=== PATIENT | female | born 1945 | race Caucasian/White ===

== ENCOUNTER 2020-04-01 08:25 | Outpatient (CLI) | payer MEDICARE, SELFPAY ==
--- NOTE | ~2020-04-01 | MM_ITS ---
EXAMINATION: MM screening [facility] BI w elias HISTORY: Screening mammogram TECHNIQUE: Craniocaudal and mediolateral oblique 3-D tomosynthesis images were obtained and synthetic 2-D images were generated. CAD analysis was submitted and interpreted. COMPARISON: 02/07/2019, 01/10/2018, 01/01/2017 bilateral digital screening mammogram examinations BREAST PARENCHYMAL COMPOSITION: The breasts are almost entirely fatty. FINDINGS: There is no evidence of suspicious mass, calcification, or architectural distortion to sugg est malignancy in either breast. There has been no suspicious interval change. IMPRESSION: 1. No mammographic evidence of malignancy. 2. Recommend routine screening mammography in one year. BI-RADS Category 1: Negative Reviewed, dictated and finalized at location A.
== END 2020-04-01 08:26 | disposition home or self-care (01) ==
PROVIDERS: PCP Internal Medicine; Visit Provider Student in an Organized Health Care Education/Training Program
DX: Z12.31 Encounter for screening mammogram for malignant neoplasm of breast (principal)
CPT/HCPCS: 77063; 77067

== ENCOUNTER 2020-05-06 09:31 | Outpatient (CLI) | payer MEDICARE, SELFPAY ==
--- NOTE | ~2020-05-06 | NM_ITS ---
EXAMINATION: NM thyroid scan w uptake DATE: 05/07/2020 13:44 INDICATION: Thyrotoxicosis, unspecified without thyrotoxic crisis. COMPARISON: Ultrasound 05/07/2020 TECHNIQUE: 0.422 mCi I-123 was administered orally. Scintigraphic images of the thyroid gland were o btained at 24 hours. Thyroid uptake was calculated by the technologist. FINDINGS: The thyroid uptake is 29% (normal 10-30%), with the right lobe measuring 28% uptake and the left 1%. There is no focal area of decreased or increased activity to suggest hypofunctioning or hyperfunction ing nodule. By ultrasound, the left thyroid lobe is small. IMPRESSION: 1. Normal 24-hour iodine uptake. 2. Small left thyroid lobe. Reviewed, dictated and finalized at location A.
== END 2020-05-06 09:32 | disposition home or self-care (01) ==
PROVIDERS: PCP Internal Medicine; Visit Provider Internal Medicine Endocrinology, Diabetes & Metabolism
DX: E05.90 Thyrotoxicosis, unspecified without thyrotoxic crisis or storm (principal)
CPT/HCPCS: 78014; A9516

== ENCOUNTER 2020-05-07 08:25 | Outpatient (CLI) | payer MEDICARE, SELFPAY ==
--- NOTE | ~2020-05-07 | US_ITS ---
EXAMINATION: US thyroid DATE: 05/07/2020 09:09 INDICATION: Thyrotoxicosis TECHNIQUE: Multiple ultrasound images of the thyroid were obtained. COMPARISON: None. FINDINGS: The right thyroid lobe measures 5.2 x 2.0 x 2.0 cm. The left thyroid lobe measures 2.4 x 1.0 x 1.1 c m. 2.0 cm isoechoic wider than tall solid hypoechoic nodule with punctate internal echogenic foci me asuring 2.0 cm in the inferior right thyroid (TI-RADS 4, moderately suspicious , FNA if >=1.5 cm, armand ual followup is >1 cm) which is decreased from 2.4 cm at the prior study. There is a second subtle 2. 0 cm nodule with similar imaging characteristics also TI RADS 4 at the mid right thyroid. No signific ant interval change in a wider than tall solid hypoechoic nodule at the right side of the thyroid ist hmus with smooth margins and without echogenic foci measuring 1.6 x 1.4 x 0.7 cm which previously paxton sured 1.3 x 1.3 x 0.8 cm. 5 x 4 mm shadowing coarse calcification at the superficial aspect of the m id right thyroid lobe without appreciable associated nodule. There is normal echotexture, echogenicit y and vascular flow throughout the thyroid gland. IMPRESSION: 1. No significant interval change in three TI RADS 4 nodules in the right thyroid lobe/right side of the thyroid isthmus, the two largest measuring 2.0 cm which would meet consensus criteria for ultraso und-guided biopsy which would be recommended. Reviewed, dictated and finalized at location A. IMPRESSION: 1. No significant interval change in three TI RADS 4 nodules in the right thyro id lobe/right side of the thyroid isthmus, the two largest measuring 2.0 cm whi ch would meet consensus criteria for ultrasound-guided biopsy which would be re commended.
== END 2020-05-07 08:26 | disposition home or self-care (01) ==
PROVIDERS: PCP Internal Medicine; Visit Provider Internal Medicine Endocrinology, Diabetes & Metabolism
DX: E05.90 Thyrotoxicosis, unspecified without thyrotoxic crisis or storm (principal)
CPT/HCPCS: 76536

== ENCOUNTER 2020-07-20 09:21 | Outpatient (CLI) | payer MEDICARE, SELFPAY ==
--- NOTE | ~2020-07-20 | US_ITS ---
EXAMINATION: US thyroid EXAM DATE: 07/20/2020 09:50 INDICATION: Thyroid nodule follow-up. TECHNIQUE: Multiple grayscale and Doppler images of the thyroid were obtained (by a technologist who performed the scan) and subsequently reviewed. Individual nodules and recommendations may be reporte d in accordance with TI-RADS system as designated by the 2017 ACR White Paper TI-RADS committee. Comp bernice is made to prior examination from 03/19/2019. FINDINGS: Mildly heterogeneous thyroid echogenicity, right there are lobe measuring 5.1 x 2.3 x 1.9 cm and the left measuring 3.6 x 1.0 x 0.9 cm. Largest 2 thyroid nodules are in the right thyroid lobe. Right thyroid lower pole thyroid nodule measures 1.6 x 1.9 x 1.8 centimeters, solid (2 points), hypo echoic (2 points), wider than tall, smooth margin, without echogenic foci, category TR4 for this nodu le. This is unchanged. The 2nd largest right thyroid nodule measures 1.5 x 0.6 x 1.3 centimeters, solid (2 points), hypoecho ic (2 points), wider than tall, smooth margin, without echogenic foci, category TR4 for this nodule. This is unchanged. IMPRESSION: Stable thyroid nodules. Largest 2 on the right do meet current criteria for considering u ltrasound-guided biopsy. Reviewed, dictated and finalized at location B. IMPRESSION: Stable thyroid nodules. Largest 2 on the right do meet current crit eria for considering ultrasound-guided biopsy.
== END 2020-07-20 09:22 | disposition home or self-care (01) ==
PROVIDERS: PCP Internal Medicine; Visit Provider Internal Medicine Endocrinology, Diabetes & Metabolism
DX: E04.2 Nontoxic multinodular goiter (principal)
CPT/HCPCS: 76536

== ENCOUNTER 2020-09-06 16:24 | Outpatient (CLI) | payer MEDICARE, SELFPAY ==
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
== END 2020-09-06 16:25 | disposition home or self-care (01) ==
PROVIDERS: PCP Internal Medicine; Visit Provider Nurse Practitioner Adult Health
DX: S09.90XA Unspecified injury of head, initial encounter (principal); Z51.81 Encounter for therapeutic drug level monitoring; Z79.01 Long term (current) use of anticoagulants
CPT/HCPCS: 70450

== ENCOUNTER 2021-04-14 15:31 | Outpatient (CLI) | payer MEDICARE, SELFPAY ==
--- NOTE | ~2021-04-14 | MM_ITS ---
EXAMINATION: MM screening [facility] BI w elias HISTORY: Screening mammogram TECHNIQUE: Craniocaudal and mediolateral oblique 3-D tomosynthesis images were obtained and synthetic 2-D images were generated. CAD analysis was submitted and interpreted. COMPARISON: 04/01/2020, 02/07/2019, 01/10/2018 BREAST PARENCHYMAL COMPOSITION: There are scattered areas of fibroglandular density. FINDINGS: There is no evidence of suspicious mass, calcification, or architectural distortion to sugg est malignancy in either breast. There has been no suspicious interval change. IMPRESSION: 1. No mammographic evidence of malignancy. 2. Recommend routine screening mammography in one year. BI-RADS Category 1: Negative Reviewed, dictated and finalized at location A.
== END 2021-04-14 15:32 | disposition home or self-care (01) ==
LOC: ANHIMG 15:36
PROVIDERS: PCP Internal Medicine; Visit Provider Student in an Organized Health Care Education/Training Program
DX: Z12.31 Encounter for screening mammogram for malignant neoplasm of breast (principal)
CPT/HCPCS: 77063; 77067

== ENCOUNTER 2021-06-29 09:46 | Outpatient (CLI) | payer MEDICARE, SELFPAY ==
--- NOTE | ~2021-06-29 | US_ITS ---
EXAMINATION: US thyroid EXAM DATE: 06/29/2021 10:23 INDICATION: E05.90 - Thyrotoxicosis, unspecified without thyrotoxic c... TECHNIQUE: Multiple grayscale and Doppler images of the thyroid were obtained (by a technologist who performed the scan) and subsequently reviewed. Individual nodules and recommendations may be reporte d in accordance with TI-RADS system as designated by the 2017 ACR White Paper TI-RADS committee. Comp arison is made to prior examination from 07/20/2020, 03/19/2019. FINDINGS: Right thyroid lobe measures 5.4 x 2.6 x 2.3 cm, the left measuring 3.1 x 0.9 x 0.6 cm. Again there is diffusely heterogeneous thyroid echogenicity with scattered thyroid nodules. Largest nodules on the right side, measuring 2.4 x 1.6 x 1.6 cm, 2.2 x 1.9 x 1.8 cm and 1.6 x 0.8 x 1 .5 cm mm, not significantly changed. These are category TR 4, the criteria for recommending biopsy. IMPRESSION: Stable multinodular goiter. Largest nodules do meet criteria for considering biopsy. Reviewed, dictated and finalized at location B. IMPRESSION: Stable multinodular goiter. Largest nodules do meet criteria fo r considering biopsy.
== END 2021-06-29 09:47 | disposition home or self-care (01) ==
LOC: ANHIMG 09:50
PROVIDERS: PCP Internal Medicine; Visit Provider Internal Medicine Endocrinology, Diabetes & Metabolism
DX: E05.90 Thyrotoxicosis, unspecified without thyrotoxic crisis or storm (principal); E04.1 Nontoxic single thyroid nodule
CPT/HCPCS: 76536

== ENCOUNTER 2021-09-26 09:59 | Emergency (ER) | payer OTHER, MEDICARE, SELFPAY ==
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
--- NOTE | ~2021-09-26 | XR_ITS ---
EXAMINATION: XR wrist LT min 3V DATE: 09/26/2021 10:54 INDICATION: Left wrist pain post fall TECHNIQUE: Posteroanterior, ulnar deviation, oblique, and lateral views of the left wrist were obtain ed. COMPARISON: none FINDINGS: Distal left radial fracture with mild dorsal impaction. The fracture appears to involve the distal ar ticular surface but with no significant fracture gap or incongruity. There is also a nondisplaced tra nsverse fracture across the tip of the ulnar styloid process. Mild osteoarthritis at the distal radio ulnar, radiocarpal triscaphe and first carpal metacarpal joints. IMPRESSION: 1. Mild dorsal impaction of a likely intra-articular fracture of the distal left radius. 2. Nondisplaced fracture of the ulnar styloid process. Reviewed, dictated and finalized at location A. NOSTICS SALES DEVELOPER IMPRESSION: 1. Mild dorsal impaction of a likely intra-articular fracture of the distal lef t radius. 2. Nondisplaced fracture of the ulnar styloid process.
[2021-09-26 10:29] VITALS: BP 149/78; PULSE 64; RESP 18; TEMP 36.8; O2SAT 97
[2021-09-26 13:43] VITALS: BP 151/73; PULSE 64; RESP 16; O2SAT 100
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
[2021-09-26] MEDS: HYDROcodone/acetaminophen (*CRX) 5-325 MG TABLET 1 TAB PO (13:44)
== END 2021-09-26 14:31 | disposition home or self-care (01) ==
PROVIDERS: Emergency Provider Emergency Medicine; PCP Internal Medicine
DX: S52.502A Unspecified fracture of the lower end of left radius, initial encounter for closed fracture (principal); S52.615A Nondisplaced fracture of left ulna styloid process, initial encounter for closed fracture; S32.010A Wedge compression fracture of first lumbar vertebra, initial encounter for closed fracture; I48.91 Unspecified atrial fibrillation; I10 Essential (primary) hypertension; E05.90 Thyrotoxicosis, unspecified without thyrotoxic crisis or storm; Z79.01 Long term (current) use of anticoagulants; M47.812 Spondylosis without myelopathy or radiculopathy, cervical region; V03.90XA Pedestrian on foot injured in collision with car, pick-up truck or van, unspecified whether traffic or nontraffic accident, initial encounter
CPT/HCPCS: 29125; 70450; 72125; 72131; 73110; 99284; A4565; A9270

== ENCOUNTER → 2022-06-22 07:36 | Outpatient (CLI) | payer MEDICARE, SELFPAY ==
--- NOTE | ~2022-06-22 | DEXA_ITS ---
Bone Density Report Name: EDY DESOUZA Age: 77 Sex: Female Ethnicity: White Date of : 1945 Indication: postmenopausal; screening for osteoporosis; height loss; prior fracture; Referring Provider: Noemí Garrido Study: Bone densitometry was performed. Exam Date: June 22, 2022 Accession number: [id number] Bone Density: Region BMD T-score Z-score Classification AP Spine (L2, L3) 1.171 1.0 3.6 Normal Femoral Neck (Left) 0.849 0.0 2.1 Normal Total Hip (Left) 0.814 -1.1 0.8 Osteopenia Femoral Neck (Right) 0.799 -0.4 1.7 Normal Total Hip (Right) 0.835 -0.9 1.0 Normal Total Hip Mean 0.825 -1.0 0.9 Normal World Health Organization criteria for BMD impression classify patients as: Normal (T-score at or above -1.0), Osteopenia (T-score between -1.0 and -2.5), or Osteoporosis (T-score at or below -2.5). 10-year Fracture Risk: FRAX not reported because: Prior hip or vertebral fracture Previous Exams: Region Exam Age BMD T-score BMD Change BMD Change Date g/cm2 vs Baseline vs Previous AP Spine(L2, L3) 06/22/2022 77 1.171 1.0 0.055 -0.036* 02/07/2019 74 1.207 1.4 0.091 0.035* 01/01/2017 71 1.172 1.0 0.056 0.035* 12/17/2014 69 1.137 0.7 0.021 0.014 11/08/2012 67 1.124 0.6 0.007 0.054* 10/19/2010 65 1.070 0.1 -0.047 0.008 10/16/2008 63 1.061 0.0 -0.055 -0.011 10/05/2006 61 1.073 0.1 -0.044 -0.044 06/24/2004 59 1.116 0.5 Total Hip(Left) 06/22/2022 77 0.814 -1.1 0.018 -0.018 02/07/2019 74 0.831 -0.9 0.035 0.021 01/01/2017 71 0.810 -1.1 0.014 0.005 12/17/2014 69 0.805 -1.1 0.009 -0.013 11/08/2012 67 0.818 -1.0 0.022 0.006 10/19/2010 65 0.812 -1.1 0.016 0.005 10/16/2008 63 0.808 -1.1 0.012 0.078* 10/05/2006 61 0.729 -1.7 -0.067 -0.067 06/24/2004 59 0.796 -1.2 Total Hip(Right) 06/22/2022 77 0.835 -0.9 -0.016 -0.002 02/07/2019 74 0.837 -0.9 -0.014 -0.035* 01/01/2017 71 0.872 -0.6 0.021 0.026 12/17/2014 69 0.846 -0.8 -0.005 -0.011 11/08/2012 67 0.857 -0.7 0.006 0.021 10/19/2010 65 0.836 -0.9 -0.015 0.018 10/16/2008 63 0.818 -1.0 -0.033 0.004 10/05/2006 61 0.814 -1.0 -0.037 -0.037
--- NOTE | ~2022-06-22 | MM_ITS ---
EXAMINATION: MM screening [facility]ones BI w elias HISTORY: Screening TECHNIQUE: Craniocaudal and mediolateral oblique 3-D tomosynthesis images were obtained and synthetic 2-D images were generated. CAD analysis was submitted and interpreted. COMPARISON: No prior mammogram is available for comparison at this institution. BREAST PARENCHYMAL COMPOSITION: There are scattered areas of fibroglandular density. FINDINGS: There is no evidence of suspicious mass, calcification, or architectural distortion to sugg est malignancy in either breast. There has been no suspicious interval change. IMPRESSION: 1. No mammographic evidence of malignancy. 2. Recommend routine screening mammography in one year. BI-RADS Category 1: Negative Reviewed, dictated and finalized at location A.
== END ==
PROVIDERS: PCP Internal Medicine; Visit Provider Student in an Organized Health Care Education/Training Program
DX: Z12.31 Encounter for screening mammogram for malignant neoplasm of breast (principal); Z78.0 Asymptomatic menopausal state; M85.852 Other specified disorders of bone density and structure, left thigh
CPT/HCPCS: 77063; 77067; 77080

== ENCOUNTER 2022-12-28 13:00 | Outpatient (CLI) | payer MEDICARE, SELFPAY ==
--- NOTE | ~2022-12-28 | US_ITS ---
EXAMINATION: US thyroid DATE: 12/28/2022 13:43 INDICATION: Thyroid nodules. TECHNIQUE: Multiple ultrasound images of the thyroid were obtained. COMPARISON: Thyroid scintigraphy 05/07/2020, ultrasound 03/19/2019, 06/29/21 FINDINGS: The right thyroid lobe measures 5.0 x 2.1 x 2.3 cm. The left thyroid lobe measures 2.8 x 0.9 x 0.7 c m. In the right thyroid lobe, there is a 2.2 cm predominantly solid, hypoechoic, wider than tall nod ule with smooth margin without echogenic foci (TI-RADS TR4), stable from 06/29/21 and increased in size from 02/27/19. In the right thyroid lobe, there is a 2.5 cm predominantly solid, isoechoic, wider than tall nodule with ill-defined margin and punctate echogenic foci (TR4), stable from 03/19/19. In the r ight thyroid lobe, there is a 2.2 cm solid, hypoechoic, wider than tall nodule with ill-defined laura n and punctate echogenic foci (TR5), stable from 03/19/19. In the thyroid isthmus, there is a 1.7 cm s olid, hypoechoic, wider than tall nodule with smooth margin without echogenic foci (TR4), stable from 03/19/19. Thyroid scintigraphy on 05/07/2020 demonstrated hyperactive nodules in the right thyroid lob e. IMPRESSION: 1. Stable multinodular goiter. Reviewed, dictated and finalized at location A. TY SHOP MANAGER
== END 2022-12-28 13:01 | disposition home or self-care (01) ==
PROVIDERS: PCP Internal Medicine; Visit Provider Internal Medicine Endocrinology, Diabetes & Metabolism
DX: E04.2 Nontoxic multinodular goiter (principal); E05.90 Thyrotoxicosis, unspecified without thyrotoxic crisis or storm; M81.0 Age-related osteoporosis without current pathological fracture
CPT/HCPCS: 76536

== ENCOUNTER 2024-04-24 14:59 | Outpatient (CLI) | payer MEDICARE, SELFPAY ==
--- NOTE | ~2024-04-24 | DEXA_ITS ---
Bone Density Report Name: EDY DESOUZA Age: 79 Sex: Female Ethnicity: White Date of : 1945 Indication: postmenopausal; screening for osteoporosis; height loss; cancer; Referring Provider: ANTONINO GUILLAUME Study: Bone densitometry was performed. Exam Date: April 24, 2024 Accession number: [id number] Bone Density: Region BMD T-score Z-score Classification AP Spine(L2, L3) 1.136 0.7 3.3 Normal Femoral Neck (Left) 0.839 -0.1 2.1 Normal Total Hip (Left) 0.831 -0.9 1.1 Normal Femoral Neck (Right) 0.838 -0.1 2.1 Normal Total Hip (Right) 0.891 -0.4 1.5 Normal Total Hip Mean 0.861 -0.7 1.3 Normal World Health Organization criteria for BMD impression classify patients as: Normal (T-score at or above -1.0), Osteopenia (T-score between -1.0 and -2.5), or Osteoporosis (T-score at or below -2.5). 10-year Fracture Risk: FRAX not reported because: All T-scores for Spine Total, Hip Total, Femoral Neck at or above -1.0 Clinical Information Provided by Patient: Has used the following medications: Calcium Has the following medical conditions: Cancer Patient maximum height was 67.5 Drinks caffeinated beverages Onset of menses at age 13 Number of children 2 Impression: The patient has normal bone mass. Discussion: BONE DENSITY IS ABOVE THE MINIMUM DESIRABLE LEVEL AT ALL SKELETAL SITES TESTED. This patient?s bone mineral density is above the minimum desirable level (T-score -1.0 or better) at all sites measured. The patient should follow a healthful lifestyle (good nutrition with adequate calcium and vitamin D, and appropriate weight-bearing exercise). Follow-Up: Consider repeating this study in 5 years or sooner if there is some new clinical indication. Reported by: JD on 04/24/2024 3:29:00 PM. Reviewed, dictated and finalized at location ARadha MICHEL
== END 2024-04-24 15:00 | disposition home or self-care (01) ==
PROVIDERS: PCP Family Medicine; Visit Provider Family Medicine
DX: M81.0 Age-related osteoporosis without current pathological fracture (principal); Z78.0 Asymptomatic menopausal state; Z13.820 Encounter for screening for osteoporosis
CPT/HCPCS: 77080

== ENCOUNTER 2024-05-27 15:55 | Outpatient (CLI) | payer MEDICARE, SELFPAY ==
--- NOTE | ~2024-05-27 | US_ITS ---
EXAMINATION: US thyroid DATE: 05/27/2024 16:40 INDICATION: Thyroid nodule. TECHNIQUE: Multiple ultrasound images of the thyroid were obtained. COMPARISON: Thyroid ultrasound 12/28/2022, 03/19/2019, 06/29/21, thyroid scintigraphy 05/07/2020 FINDINGS: The right thyroid lobe measures 5.8 x 2.1 x 2.1 cm. The left thyroid lobe measures 1.2 x 1.0 x 3.2 c m. In the right thyroid isthmus, there is a 1.6 cm solid, hypoechoic, wider than tall nodule with lo bulated margin without echogenic foci (TI-RADS TR4), stable from 03/19/19. In the right thyroid lobe, there is a 13 mm solid, hypoechoic, wider than tall nodule with ill-defined margin and punctate echog enic foci, stable from 03/19/19. In the right thyroid lobe, there is a 2.4 cm predominantly solid, hyp oechoic, wider than tall nodule with ill-defined margin and punctate echogenic foci, stable from 03/19. In the right thyroid lobe, there is a 2.1 cm solid, hypoechoic, wider than tall nodule with smoo th margin without echogenic foci, stable from 12/28/22 and increased from 1.8 cm on 06/29/21 and 1.3 cm o n 03/19/19. IMPRESSION: 1. Multinodular goiter. Consider ultrasound-guided fine-needle aspiration of the 2.1 cm nodule in sup erior right thyroid lobe. Reviewed, dictated and finalized at location A. IMPRESSION: 1. Multinodular goiter. Consider ultrasound-guided fine-needle aspiration of th e 2.1 cm nodule in superior right thyroid lobe.
== END 2024-05-27 15:56 | disposition home or self-care (01) ==
LOC: ANHIMG 15:58
PROVIDERS: PCP Family Medicine; Visit Provider Internal Medicine Endocrinology, Diabetes & Metabolism
DX: E04.2 Nontoxic multinodular goiter (principal)
CPT/HCPCS: 76536

== ENCOUNTER 2024-07-05 08:20 | Outpatient (CLI) | payer MEDICARE, SELFPAY ==
--- NOTE | ~2024-07-05 | MM_ITS ---
EXAMINATION: MM screening jones BI w elias HISTORY: Screening mammogram TECHNIQUE: Craniocaudal and mediolateral oblique 3-D tomosynthesis images were obtained and synthetic 2-D images were generated. CAD analysis was submitted and interpreted. COMPARISON: 06/22/2022, 04/14/2021 BREAST PARENCHYMAL COMPOSITION:Not Dense. There are scattered areas of fibroglandular density. FINDINGS: No suspicious mass, calcification, or architectural distortion are identified in either janessa ast to suggest malignancy. There has been no suspicious interval change. IMPRESSION: No mammographic evidence of malignancy. Recommend routine screening mammography in one year. BI-RADS Category 1: Negative Reviewed, dictated and finalized at location .
== END 2024-07-05 08:21 | disposition home or self-care (01) ==
LOC: ANHIMG 08:28
PROVIDERS: PCP Family Medicine; Visit Provider Family Medicine
DX: Z12.31 Encounter for screening mammogram for malignant neoplasm of breast (principal)
CPT/HCPCS: 77063; 77067

== ENCOUNTER 2025-03-17 14:21 | Emergency (ER) | payer MEDICARE, SELFPAY ==
--- NOTE | 2025-03-17 14:35 | ED.SKABFB ---
HPI - Skin/Abscess/Foreign Bdy General Chief complaint: Extremity Problem,Nontraumatic Stated complaint: Swollen R Leg Time Seen by Provider: 03/17/25 15:07 Source: patient and RN notes reviewed Mode of arrival: ambulatory Limitations: dementia History of Present Illness HPI narrative: 80-year-old female presents with concern for red spots on her right ache. She reports she noticed some on Sunday. She reports she had been doing some yd work. She denies pain, itchiness. She is on a blood thinner. She denies fever, general malaise, body aches. MD complaint: insect bite/sting Related Data Home Medications Medication Instructions Recorded Confirmed Last Taken Type B-complex with vitamin C 1 tablet PO DAILY 12/03/19 02/18/25 Unknown History cetirizine 5 mg-pseudoephedrine ER 1 tablet PO Q12H 12/03/19 02/18/25 Unknown History 120 mg tablet,extended release,12hr (Zyrtec-D) cholecalciferol (vitamin D3) 25 1,000 unit PO DAILY 12/03/19 02/18/25 Unknown History mcg (1,000 unit) tablet multivitamin 1 tablet PO DAILY 12/03/19 02/18/25 Unknown History rivaroxaban 20 mg tablet (Xarelto) 20 mg PO QPM 12/03/19 02/18/25 Unknown History calcium carbonate (Calcium 600) 600 mg PO BID 04/20/20 02/18/25 Unknown History metoprolol succinate 100 mg 50 mg PO DAILY 12/14/21 02/18/25 Unknown History tablet,extended release 24 hr flecainide 100 mg tablet 100 mg PO Q12H 06/20/22 02/18/25 Unknown History ascorbate calcium (vitamin C) 500 1 g PO DAILY 03/29/23 02/18/25 Unknown History mg tablet metronidazole 1 % topical cream 1 applic topical QHS 07/19/23 02/18/25 Unknown History triamcinolone acetonide 0.1 % 1 applic topical BID 07/19/23 02/18/25 Unknown History topical cream lisinopril 20 mg tablet 40 mg PO DAILY 02/12/24 02/18/25 Unknown History ciprofloxacin HCl 0.2 % ear drops 5 drp EACH EAR BID 02/18/25 02/18/25 Unknown History in a dropperette Allergies Allergy/AdvReac Type Severity Reaction Status Date / Time diltiazem Allergy Unknown rash Verified 02/18/25 13:29 hydrocodone Allergy Unknown unknown Verified 02/18/25 13:29 Penicillins Allergy Unknown Hives in Verified 02/18/25 13:29 mouth Review of Systems Review of Systems: CONSTITUTIONAL: Denies malaise, chills, sweats, or fever. EYES: Denies redness, or discharge. ENT: Denies rhinorrhea, congestion, swollen lips, swollen tongue CARDIOVASCULAR: Denies chest pain, palpitations, or edema. RESPIRATORY: Denies cough or dyspnea. GASTROINTESTINAL: Denies abdominal pain, nausea, vomiting SKIN: Reports to red spots on her right lower leg. Denies pain, itchiness, purulent drainage, vesicles, bullae, numbness, pain beyond proportion MUSCULOSKELETAL: Denies joint pain or myalgia. NEUROLOGIC: Denies headache. All systems reviewed & are unremarkable except as noted in HPI and below PMFSH Past Medical History Medical History Cataract fragments in both eyes following surgery Adenocarcinoma Carpal tunnel syndrome of left wrist 07/2022 Fracture of ulnar styloid Central stenosis of spinal canal L1 vertebral fracture Hypertension Atrial fibrillation Thyroid nodule Osteoporosis Hyperthyroidism History of vaginal delivery x 2 Surgical History Surgical History History of carpal tunnel release 01/2023 H/O cardiac radiofrequency ablation 2021 [place] teeth removed Family History Family History Mother Patient's mother is Hypertension Father Patient's father is Diabetes mellitus Other Cancer Osteoporosis Social History Social History Smoking status: Never smoker Second hand tobacco smoke exposure: No Alcohol intake: current Drinks per week: 4 Alcohol use details: wine Substance use: never Substance use type: does not use Lack of Transportation: No Lack of Food: Never True Current Housing: I Have Housing Concerned About Future Housing: No Difficulty Paying Gas/Electric Bills: No Difficulty Paying for Meds: No Currently Unemployed: No Education: Master's Degree or Higher Difficulty w/ Childcare or Family Care: No Comments At time of signature, agree with nursing past medical, surgical, social and family history. There is no relevant family history pertinent to the presenting complaint Exam Narrative: GENERAL: Well-appearing, well-nourished, and in no acute distress. HEAD: Normocephalic, atraumatic. EYES: PERRLA, conjunctivae clear ENT: Mucous membranes moist. NECK: Supple. No lymphadenopathy CHEST: Clear to auscultation. No respiratory distress. HEART: Regular rate and rhythm. SKIN: Warm, dry. 2 circular flat red areas noted to the right lower leg, 3 to the left lower leg with No surrounding Erythema, induration, tenderness, warmth with sharp margins. No vesicles, bullae, necrosis, ecchymosis, crepitus noted. NEURO: Alert and oriented x3. PSYCH: Normal mood and affect Course Course Emergency Course: Patient is aware of diagnosis, understands and agrees to treatment plan. Anticipatory guidance given. Patient agrees to follow-up as directed and is aware of reasons to seek care at the emergency department. Portions of this record may have been created with voice recognition software Level of Care: Express Care Visit Vital Signs Vital signs: Reviewed. MDM - Skin/Abscess/Foreign Bdy MDM Narrative Medical decision making narrative: I evaluated this in the express care. History is obtained from patient who is an independent historian and physical exam was performed. Available medical records were reviewed. Exam findings and relevant testing show no acute concerns or changes; patient is non-toxic appearing and is in no distress. No risk factors or findings concerning for epidural abscess, diskitis, vertebral osteomyelitis, cord compression, cauda equina, vertebral fracture or bone malignancy, AAA, or pyelonephritis. Patient instructed to consider further imaging and workup through their primary care physician as an outpatient if symptoms persist. Does not appear at this time to be erythema multiforme, bullous, SJS, TEN; no evidence at this time to suggest RMSF, NSTI, endocarditis or Lyme disease; patient looks well, nontoxic and is tolerating oral intake; no neurologic signs or symptoms; no headache, photophobia or neck pain; afebrile. Patient does not have history of of penetrating trauma, laceration, blunt trauma, recent surgery, immunosuppression, malignancy, obesity, alcoholism, corticosteroid use. Discussed the importance of follow-up, patient agrees; question, cellulitis versus necrotizing soft tissue infection versus abscess. Patient is appropriate for outpatient treatment and follow-up. Critical Care Time Critical Care Time Critical Care Time: No Discharge Plan Discharge Clinical Impression: Insect bite Patient Disposition: Home Condition: Stable Instructions: Insect Bite or Sting (ED) Additional Instructions: Please follow up with your Primary Care Doctor as needed. Rest and elevate affected area; apply moist heat 3-4 times daily for 10-15 minutes. If you experience any worsening redness, swelling, streaking (red lines), fever or chills please go to the ER Patient Language: Yemeni Prescriptions: No Action B-complex with vitamin C Tablet 1 tablet PO DAILY cetirizine-pseudoephedrine [Zyrtec-D] 5-120 mg tablet extended release 12 hr 1 tablet PO Q12H Xarelto 20 mg tablet 20 mg PO QPM Rx Instructions: must administer with evening meal multivitamin Tablet 1 tablet PO DAILY cholecalciferol (vitamin D3) 25 mcg (1,000 unit) tablet 1,000 unit PO DAILY ascorbate calcium (vitamin C) 500 mg tablet 1 g PO DAILY calcium carbonate [Calcium 600] 600 mg calcium (1,500 mg) tablet 600 mg PO BID metoprolol succinate 100 mg tablet extended release 24 hr 50 mg PO DAILY flecainide 100 mg tablet 100 mg PO Q12H Rx Instructions: BID triamcinolone acetonide 0.1 % cream 1 applic topical BID metronidazole 1 % cream 1 applic topical QHS lisinopril 20 mg tablet 40 mg PO DAILY ciprofloxacin HCl 0.2 % dropperette 5 drp EACH EAR BID methimazole 5 mg tablet 5 mg PO .COMPLEX Qty: 90 3RF Rx Instructions: 5 mg orally; 5 days a week Follow-up/Referrals: Geo Hernandez MD [Primary Care Provider] - Time of Disposition: 15:17
[2025-03-17 14:53] VITALS: BP 150/68; PULSE 57; RESP 16; TEMP 36.7; O2SAT 100
== END 2025-03-17 15:20 | disposition home or self-care (01) ==
PROVIDERS: Emergency Provider Nurse Practitioner; PCP Family Medicine
DX: S80.861A Insect bite (nonvenomous), right lower leg, initial encounter (principal); S80.862A Insect bite (nonvenomous), left lower leg, initial encounter; W57.XXXA Bitten or stung by nonvenomous insect and other nonvenomous arthropods, initial encounter; I10 Essential (primary) hypertension; I48.91 Unspecified atrial fibrillation; M81.0 Age-related osteoporosis without current pathological fracture; E05.90 Thyrotoxicosis, unspecified without thyrotoxic crisis or storm; Z85.9 Personal history of malignant neoplasm, unspecified
CPT/HCPCS: 99211; G0463

== ENCOUNTER 2025-03-25 09:14 | Outpatient (CLI) | payer MEDICARE, SELFPAY ==
--- NOTE | ~2025-03-25 | US_ITS ---
EXAMINATION: US soft tissue LE RT DATE: 03/25/2025 10:28 INDICATION: Small palpable region of painful erythema at the medial aspect of the right lower leg TECHNIQUE: Multiple grayscale and Doppler ultrasound images of the region of concern at the medial [facility] lower leg were obtained. COMPARISON: None FINDINGS: There is an approximately 2 cm diameter region of focal mild skin thickening with the hypoechoic term inus increasing from 1 mm to 2.4 mm in thickness. There is minimal amount of underlying subcutaneous edema. No other abnormal masses or fluid collections identified. IMPRESSION: 1. Region of concern demonstrates a small region of mild focal skin thickening and minimal underlying subcutaneous edema which could be seen with cellulitis. No abnormal masses or fluid collections iden tified. Reviewed, dictated and finalized at location A. IMPRESSION: 1. Region of concern demonstrates a small region of mild focal skin thickening and minimal underlying subcutaneous edema which could be seen with cellulitis. No abnormal masses or fluid collections identified.
--- NOTE | ~2025-03-25 | XR_ITS ---
XR knee RT min 4V 03/25/2025 09:38 Indication: Right knee pain Procedure: 4 views right knee Comparison: No prior studies for comparison. Findings: There is moderate osteoarthritis of the medial compartment of the knee with osteochondral d efect of the medial femoral condyle. Mild patellofemoral compartment osteoarthritis. Small joint effu elizabeth. No acute fracture or traumatic malalignment. 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 Reviewed, dictated and finalized at location A. 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
--- NOTE | ~2025-03-25 | US_ITS ---
EXAMINATION: US venous doppler LE RT DATE: 03/25/2025 10:28 INDICATION: Right lower limb pain, swelling and erythema. TECHNIQUE: Grayscale ultrasound images without and with compression and Doppler ultrasound images of the right lower extremity veins were obtained. COMPARISON: None. FINDINGS: The visualized portions of right common femoral vein, profunda (deep) femoral vein, femoral vein, pop liteal vein, peroneal trunk, posterior tibial veins, gastrocnemius vein and proximal to mid greater s aphenous vein are patent. The peroneal veins at the calf or not clearly visualized. 7.8 x 1.9 x 3.6 c m fusiform lesion at the medial aspect of the right knee and proximal lower leg. The lesion is predom inantly hypoechoic with scattered small anechoic regions and without evident internal vascular flow o r surrounding hyperemia on color Doppler. IMPRESSION: 1. No deep venous thrombosis in the right lower limb. 2. 7.8 x 3.6 x 1.9 cm fusiform hypoechoic complex cystic lesion at the medial right knee and proximal calf. Appearance most suggestive of hematoma or potentially a ganglion cyst with internal synovitis. Differential would include abscess in the appropriate clinical setting although there is no surround ing hyperemia to more specifically suggest this. Neoplasm also consistent less likely with no evident internal vascular flow to more specifically suggest this. Correlate clinically and could consider fu rther evaluation with pre and postcontrast MRI as clinically indicated. Reviewed, dictated and finalized at location A. IMPRESSION: 1. No deep venous thrombosis in the right lower limb. 2. 7.8 x 3.6 x 1.9 cm fusiform hypoechoic complex cystic lesion at the medial r ight knee and proximal calf. Appearance most suggestive of hematoma or potentia lly a ganglion cyst with internal synovitis. Differential would include abscess in the appropriate clinical setting although there is no surrounding hyperemia to more specifically suggest this. Neoplasm also consistent less likely with n o evident internal vascular flow to more specifically suggest this. Correlate c linically and could consider further evaluation with pre and postcontrast MRI a s clinically indicated.
--- OUTSIDE RECORDS SUMMARY | 2025-03-25 09:20 | XMS_ITS | Referral Summary ---
Author Organization [facility] [address] [facility] [address] Address [address] [place] [address] Care Team Providers Care Privacy Manager Name Role Phone Genevieve Sanchez MD Unavailable [phone] Geo Hernandez MD Primary Care Provider [phone] Pedro Pablo Akers MD Unavailable Cora Bell MD PhD Unavailable [phone] Romel Louie MD Unavailable [phone] Sasha MAS MD PhD, Santi Archuleta Unavailable Encounters Date Type Department Care Team Description 03/16/2025 9:00 AM CDT Telemedicine [facility] Radiation Oncology [address] [facility] [place] [address] Radha Tompkins PA Primary eccrine carcinoma of skin (Primary Dx) 01/22/2025 9:30 AM CDT Office Visit [facility] Cardiology [address] [place] [address] Cecile Stallings NP PAF (paroxysmal atrial fibrillation) (HCC) (Primary Dx); shelter current use of 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 drug; Medication monitoring encounter; Chronic anticoagulation; Essential hypertension 12/29/2024 9:00 AM TRAFFIC WAREHOUSE SUPERVISOR Clinical Support [facility] - Lab Collection [address] [facility] Floor 6 [place] [address] Poorly differentiated malignant carcinoid tumor (HCC); Carcinoma of unknown primary (HCC) 12/29/2024 9:20 AM TRAFFIC WAREHOUSE SUPERVISOR Office Visit [facility] [address] [place] [address] Floor 6 [place] [address] Romel Louie MD Poorly differentiated malignant carcinoid tumor (HCC); Carcinoma of unknown primary (HCC) 12/29/2024 8:15 AM TRAFFIC WAREHOUSE SUPERVISOR Lab [facility] Lab [facility] Floor 6 [place] [address] Poorly differentiated malignant carcinoid tumor (HCC); Carcinoma of unknown primary (HCC) 12/29/2024 6:46 AM TRAFFIC WAREHOUSE SUPERVISOR - 12/29/2024 11:59 PM TRAFFIC WAREHOUSE SUPERVISOR Hospital Encounter [facility] - PET [address] [place] [address] 8 [place] [address] Discharge Disposition: Discharge to home or self care 12/29/2024 6:45 AM TRAFFIC WAREHOUSE SUPERVISOR - 12/29/2024 11:59 PM TRAFFIC WAREHOUSE SUPERVISOR Hospital Encounter [facility] - PET [address] [place] [address] Poorly differentiated malignant carcinoid tumor (HCC); Carcinoma of unknown primary (HCC) Discharge Disposition: Discharge to home or self care from Last 3 Months Allergies Active Allergy Reactions Criticality Noted Date Comments Amlodipine-Olmesartan Swelling Medium 01/07/2024 Pedal edema taking amlodipine-olmesarta n 5/160 mg every day. Diltiazem Hives Medium 12/27/2022 Had hives on her arm after IV injection of either diltiazem or IV amiodarone in 2019. Hydrocodone-Acetaminop hen Vomiting Medium 02/01/2022 Penicillin Rash Medium 08/30/2021 Penicillins Hives,Rash,Other (See comments) Medium 02/06/2019 Mouth sores Medications multivitamin capsule Take 1 capsule by mouth daily Active ascorbic acid (VITAMIN C) 1,000 mg tablet Take 1 tablet (1,000 mg total) by mouth daily Active cholecalciferol (VITAMIN D-3) 1,000 unit capsule Take 1 capsule (1,000 Units total) by mouth daily Active CALCIUM ORAL Take 1,200 mg by mouth daily Active vitamin b complex tablet Take 1 tablet by mouth every other day Active methIMAzole (TAPAZOLE) 5 mg tablet Take 1 tablet (5 mg total) by mouth Take Sunday through Sunday 0 Active cetirizine (ZyrTEC) 10 mg tablet Take 1 tablet (10 mg total) by mouth as needed for allergies Active triamcinolone (KENALOG) 0.1 % ointment Apply topically as needed 3 Active Xarelto 20 mg tablet Take 1 tablet (20 mg total) by mouth daily 90 tablet 3 4 Active flecainide (TAMBOCOR) 100 mg tablet TAKE 1 TABLET(100 MG) BY MOUTH TWICE DAILY 180 tablet 1 5 Active metoprolol XL (TOPROL-XL) 50 mg extended release tabletIndications :PAF (paroxysmal atrial fibrillation) (HCC),Essential hypertension Take 1 tablet (50 mg total) by mouth daily 90 tablet 5 Active lisinopriL (PRINIVIL,ZESTRIL ) 40 mg tabletIndications :Essential hypertension Take 1 tablet (40 mg total) by mouth daily 90 tablet 3 5 09/25/20 25 Active ciprofloxacin-dex AMETHasone (CIPRODEX) otic suspension INSTILL 4 DROPS IN LEFT EAR TWICE DAILY X 7 DAYS 5 Active doxycycline hyclate 100 mg capsule TAKE 1 CAPSULE BY MOUTH TWICE DAILY BEFORE MEALS FOR 10 DAYS 5 Active methylPREDNISolon e (MEDROL DOSEPACK) 4 mg Dosepack FOLLOW PACKAGE DIRECTIONS 5 Active Active Problems Problem Noted Date Diagnosed Date 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 We discussed options management, and the patient will consider catheter ablation. We discussed the rationale for atrial fibrillation ablation, including the steps involved in ablation. I detailed the risks of the procedure, including vascular injury/hematoma, myocardial injury/perforation, stroke, myocardial infarction, pulmonary vein stenosis, thermal esophageal injury, phrenic nerve injury, and . I estimated a 70% chance of freedom from long-term atrial arrhythmia, and the patient understands that occasionally a second procedure is necessary. Because of the patient's persistent atrial fibrillation, I recommended that they undergo transesophageal echocardiography (to exclude the presence of left atrial thrombus) immediately prior to EP study and ablation. My office will make the appropriate arrangements if she wishes to undergo the procedure. From: October, Antonio LS, Makayla JS, Nuno H, Yuan ABILIO, Javi JE, Taylor SARY, Yulisa PT, Huma ZENG, ME, Mike KT, Tara RL, Kurtis WG, Micah PJ, Daly CM, Clementina CW. 2014 AHA/ACC/HRS guideline for the management of patients with atrial fibrillation: a report of the [place] College of Cardiology/[place] Heart Association Task Force on Practice Guidelines and the Heart Rhythm Society. J Am Janette Cardiol 2014. 6.3. AF Catheter Ablation to Maintain Sinus Rhythm: Recommendations Class I AF catheter ablation is useful for symptomatic paroxysmal AF refractory or intolerant to at least 1 class I or III 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 medication when a rhythm control strategy is desired ([phone]). (Level of Evidence: A) Chronic anticoagulation 06/11/2019 Assessment & Plan (02/14/2021 4:23 PM CDT): 12-lead ECG today does not demonstrate any changes that would prohibit continued use of flecainide. We will continue the patient on the same dose and schedule. It would be my intention to discontinue this medication 1 month post ablation. As long as the patient continues on this medication, an ECG should be performed at least every 6 months to monitor for toxicity. 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 I have therefore recommended that she remain anticoagulated for thromboprophylaxis. Borderline high blood pressure 12/10/2019 08/09/2021 Immunizations Immunization Administration Dates Next Due Influenza, Quadrivalent, Hig h Dose, Preservative Free, Intrr 08/01/2022,07/25/2021,08/04/2020 Influenza, Trivalent, High D ose, Split, Preservative Free, Intramuscular 08/11/2019,08/06/2018,08/05/2018,07/30,08/14/2016,08/04/2015 Influenza, Unspecified 08/08/2023 ZOSTER Recombinant 02/23/2022,12/20/2021 Social History Tobacco Use Types Packs/Day Years Used Date Smoking Tobacco: Never Smokeless Tobacco: Never Alcohol Use Standard Drinks/Week Comments Yes 2 (1 standard drink = 0.6 oz pur e alcohol) AUDIT-C Answer Date Recorded Q1: How often do you have a drink containing alc ohol? 2-3 times a week 11/05/2023 Q2: How many drinks containi ng alcohol do you have on a typical day when you are drinking? 1 or 2 11/05/2023 Q3: How often do you have si x or more drinks on one occasion? Never 11/05/2023 Personal Safety Answer Date Recorded Have you ever been in or are you currently in a harmful physical or emotional relationship or is someone making you feel afraid or unsafe? Denies 06/20/2023 Comments No Sex and Gender Information Value Date Recorded Sex Assigned at Not on file Legal Sex Female 8:16 PM TRAFFIC WAREHOUSE SUPERVISOR Gender Identity Female 05/14/2019 9:25 AM CDT Sexual Orientation Not on file Last Filed Vital Signs Vital Sign Reading Time Taken Comments Blood Pressure 138/80 01/22/2025 9:40 AM CDT Pulse 61 01/22/2025 9:40 AM CDT Temperature 36.8 C (98.3 F) 12/29/2024 9:27 AM TRAFFIC WAREHOUSE SUPERVISOR Respiratory Rate 18 12/29/2024 9:27 AM TRAFFIC WAREHOUSE SUPERVISOR Oxygen Saturation 98% 01/22/2025 9:40 AM CDT Inhaled Oxygen Concentration - - Weight 68 kg (150 lb) 01/22/2025 9:40 AM CDT Height 167.6 cm (5' 6) 01/22/2025 9:40 AM CDT Body Mass Index 24.21 01/22/2025 9:40 AM CDT Plan of Treatment Scheduled Procedures Name Priority Associated Diagnoses Date/Ti me ESOPHAGOGASTRODUODENOSCOPY Carcinoma of unknown primary (HCC) Medical Devices Implanted Type Area Splicer Helper Device Identifier Shelf Expiration Date Model / Serial / Lot [employer] [id number] Vascade 6/7fr Bioabsorbable Vascular System Compression Collagen - [id number] - [id number] Implanted:Qty: 1 on 03/16/2021 by Mesfin Han MD at [facility] Collagen [employer] 10/05/2022 [id number] / [id number] / [id number] [employer] [id number] System 6-12fr Mvp Venous Closure Vascade - [id number] - [id number] Implanted:Qty: 1 on 03/16/2021 by Mesfin Han MD at [facility] Collagen [employer] 01/13/2023 800-612C-1 [id number] / [id number] / [id number] [employer] [id number] System 6-12fr Mvp Venous Closure Vascade - [id number] - [id number] Implanted:Qty: 1 on 03/16/2021 by Mesfin Han MD at [facility] Collagen [employer] 01/13/2023 800-612C-1 0U / [id number] / [id number] [employer] [id number] System 6-12fr Mvp Venous Closure Vascade - [id number] - [id number] Implanted:Qty: 1 on 03/16/2021 by Mesfin Han MD at [facility] Collagen [employer] 01/13/2023 800-612C-1 0U / [id number] / [id number] Procedures Procedure Name Priority Date/Time Associated Diagnosis Comments ELECTROCARDIOGRAM REPORT Routine 01/22/2025 3:44 PM CDT PAF (paroxysmal atrial fibrillation) (HCC) EGFR Routine 12/29/2024 8:41 AM TRAFFIC WAREHOUSE SUPERVISOR 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) DIFFERENTIAL AUTO Routine 12/29/2024 8:41 AM TRAFFIC WAREHOUSE SUPERVISOR 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) CBC WITH AUTO DIFFERENTIAL Routine 12/29/2024 8:41 AM TRAFFIC WAREHOUSE SUPERVISOR 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) COMPREHENSIVE METABOLIC PANEL Routine 12/29/2024 8:41 AM TRAFFIC WAREHOUSE SUPERVISOR 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) LACTATE DEHYDROGENASE Routine 12/29/2024 8:41 AM TRAFFIC WAREHOUSE SUPERVISOR 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) PET/CT FDG SKULL TO THIGH Schedule Routine, Read Routine (OP Routine) 12/29/2024 8:37 AM TRAFFIC WAREHOUSE SUPERVISOR 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 73 m2 Comment: Interpretive Data Reference Interval Normal >/= 90 mL/min/1.73m2 Mildly decreased* 60 - 89 mL/min/1.73m2 Mildly to moderately decreased 45 - 59 mL/min/1.73m2 Moderately to severely decreased 30 - 44 mL/min/1.73m2 Severely decreased 15 - 29 mL/min/1.73m2 Kidney Failure < 15 mL/min/1.73m2 *Relative to young adult level Estimated glomerular filtration rate is determined by the 2020 CKD-EPI equation recommended by the National Kidney Foundation (A Unifying Approach to GFR Estimation: Recommendations of the NKF-ASK Task Force on Reassessing the Inclusion of Race in Diagnosing Kidney Disease, JASN 2020). The CKD-EPI equation should not be used for patients with unstable renal function and has not been validated in children and those over 70. Current interpretive data was last reviewed 2021. Blood 12/29/2024 8:41 AM TRAFFIC WAREHOUSE SUPERVISOR 12/29/2024 8:51 AM TRAFFIC WAREHOUSE SUPERVISOR us Jalen Stoll NP LAB BLOOD ORDERABLES Nuvia l Result [facility] Department [place] [address] * Differential, auto (12/29/2024 8:41 AM TRAFFIC WAREHOUSE SUPERVISOR) Neutrophil abs 2.1 1.5 - 6.5 K/cumm Comment:Testing performed by : [facility], [address] [place] [phone] Lymphocyte abs 1.4 0.8 - 3.3 K/cumm [facility] Comment:Testing performed by : [facility], [address] [place] [address] Monocyte abs 0.5 0.2 - 0.8 K/cumm [facility] Comment:Testing performed by : [facility], [address] [place] [phone] Eosinophil abs 0.0 0.0 - 0.5 K/cumm [facility] Comment:Testing performed by : [facility], [address] [place] [phone] Basophil abs 0.0 0.0 - 0.1 K/cumm [facility] Comment:Testing performed by : [facility], [address] [place] [phone] Neutrophil pct 51.4 % [facility] Comment: Interpretive Data Percent cell count reference ranges are not reported, since discordance with absolute values may lead to misinterpretation of CBC data. Current Interpretive Data was last revised on 2018. Testing performed by: [facility], [address] [place] [phone] Lymphocyte pct 34.1 % [facility] Comment: Interpretive Data Percent cell count reference ranges are not reported, since discordance with absolute values may lead to misinterpretation of CBC data. Current Interpretive Data was last revised on 2018. Testing performed by: [facility], [address] [place] [phone] Monocyte pct 12.8 % [facility] Comment: Interpretive Data Percent cell count reference ranges are not reported, since discordance with absolute values may lead to misinterpretation of CBC data. Current Interpretive Data was last revised on 2018. Testing performed by: [facility], [address] [place] [phone] Eosinophil pct 1.2 % [facility] Comment: Interpretive Data Percent cell count reference ranges are not reported, since discordance with absolute values may lead to misinterpretation of CBC data. Current Interpretive Data was last revised on 2018. Testing performed by: [facility], [address] [place] [phone] Basophil pct 0.5 % [facility] Comment: Interpretive Data Percent cell count reference ranges are not reported, since discordance with absolute values may lead to misinterpretation of CBC data. Current Interpretive Data was last revised on 2018. Testing performed by: [facility], [address] [place] [address] Blood 12/29/2024 8:41 AM TRAFFIC WAREHOUSE SUPERVISOR 12/29/2024 8:53 AM TRAFFIC WAREHOUSE SUPERVISOR Jalen Stoll STAB SETTER AND DRILLER LAB BLOOD ORDERABLES Nuvia l Result [facility] Department [place] [address] * CBC with auto differential (12/29/2024 8:41 AM TRAFFIC WAREHOUSE SUPERVISOR) WBC 4.2 3.8 - 9.9 K/cumm Comment:Testing performed by : [facility], [address] [place] [address] Hgb 12.6 11.9 - 15.5 g/dL [facility] Comment:Testing performed by : [facility], [address] [place] [address] Hct 38.2 35.6 - 45.5 % [facility] Comment:Testing performed by : [facility], [address] [place] [address] Plt 207 150 - 400 K/cumm [facility] Comment:Testing performed by : [facility], [address] [place] [address] MPV 7.8 6.8 - 10.4 fL [facility] Comment:Testing performed by : [facility], [address] [place] [address] RBC 4.19 3.90 - 5.20 M/cumm [facility] Comment:Testing performed by : [facility], [address] [place] [address] MCV 91.2 81.3 - 96.4 fL [facility] Comment:Testing performed by : [facility], [address] [place], [place] [phone] MCH 30.2 27.1 - 33.3 pg [facility] Comment:Testing performed by : [facility], [address] [place], [place] [phone] MCHC 33.1 32.3 - 35.7 g/dL [facility] Comment:Testing performed by : [facility], [address] [place], [place] [phone] RDW CV 12.8 11.1 - 14.9 % [facility] Comment:Testing performed by : [facility], [address] [place], [place] [phone] NRBC abs 0.00 0.00 - 0.01 K/cumm [facility] Comment:Testing performed by : [facility], [address] [place], [place] [phone] Blood 12/29/2024 8:41 AM TRAFFIC WAREHOUSE SUPERVISOR 12/29/2024 8:53 AM TRAFFIC WAREHOUSE SUPERVISOR Jalen Stoll NP LAB BLOOD ORDERABLES Nuvia l Result Performing Organization Address City/[facility] Co de Phone Number [facility] Department [place] [address] * Lactate dehydrogenase (LD) (12/29/2024 8:41 AM TRAFFIC WAREHOUSE SUPERVISOR) Pathologist [facility] Lactate dehydrogenase (LDH) 157 100 - 250 Units/L Blood 12/29/2024 8:41 AM TRAFFIC WAREHOUSE SUPERVISOR 12/29/2024 8:51 AM TRAFFIC WAREHOUSE SUPERVISOR Jalen Stoll STAB SETTER AND DRILLER LAB BLOOD ORDERABLES Nuvia l Result Performing Organization Address City/[facility]/ZIP Co de Phone Number [facility] [place] [address] * (ABNORMAL) Comprehensive metabolic panel (12/29/2024 8:41 AM TRAFFIC WAREHOUSE SUPERVISOR) Pathologist [facility] Sodium 138 135 - 145 mmol/L Potassium, pl 3.8 3.3 - 4.9 mmol/L [facility] Chloride 103 97 - 110 mmol/L [facility] CO2 29 22 - 32 mmol/L [facility] Anion gap 6 2 - 15 mmol/L [facility] BUN 18 6 - 25 mg/dL [facility] Creatinine 0.57(L) 0.60 - 1.10 mg/dL [facility] Glucose 87 70 - 199 mg/dL [facility] Comment: Interpretive Data Fasting glucose >/= 126 mg/dl is diagnostic for diabetes. Fasting is defined as no caloric intake for at least 8 hours. Fasting glucose between 100 mg/dl to 125 mg/dl is diagnostic of prediabetes. In a patient with classic symptoms of hyperglycemia or hyperglycemic crisis, a random glucose >/= 200 mg/dl is diagnostic for diabetes. In the absence of unequivocal hyperglycemia, results should be confirmed by repeat testing. The classification and Diagnosis of Diabetes Diabetes Care 2021; 46: S19-S40. Current interpretive data was last revised 2022. Calcium 8.6 8.5 - 10.3 mg/dL [facility] Bilirubin, total 0.3 0.1 - 1.2 mg/dL [facility] Protein, pl 6.9 6.5 - 8.5 g/dL [facility] Albumin 3.9 3.5 - 5.0 g/dL [facility] Alk phos 94 40 - 130 Units/L [facility] ALT 20 7 - 45 Units/L [facility] AST 21 10 - 45 Units/L [facility] Blood 12/29/2024 8:41 AM TRAFFIC WAREHOUSE SUPERVISOR 12/29/2024 8:51 AM TRAFFIC WAREHOUSE SUPERVISOR us Jalen Stoll NP LAB BLOOD ORDERABLES Nuvia beckman Result [facility] [place] [address] * PET/CT FDG Skull to Thigh (12/29/2024 8:37 AM TRAFFIC WAREHOUSE SUPERVISOR) Anatomical Region Laterality Modality N/A Positron Emissio n Tomography (PET) 12/29/2024 9:17 AM TRAFFIC WAREHOUSE SUPERVISOR Impressions 12/29/2024 9:49 AM TRAFFIC WAREHOUSE SUPERVISOR No FDG PET evidence of malignancy. Dictated by: Scott Kapoor M.D. The radiology attending physician has personally reviewed this study, and had reviewed and/or edited this written report and agrees with it. Electronically signed by: David Corrigan M.D. Narrative 12/29/2024 9:49 AM TRAFFIC WAREHOUSE SUPERVISOR EXAMINATION: TUMOR FDG-PET/CT IMAGING DATE OF STUDY: 12/29/2024 SCANNER: [facility] CS-Keys (SQ1). This is a high-resolution scanner, which can result in higher SUVs (and even detection of previously unrecognized small lesions) compared to older scanners. RADIOPHARMACEUTICAL: 8.13 mCi F-18 Fluorodeoxyglucose (FDG) i.v. 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 The study is requested for follow-up. Subsequent treatment strategy. TECHNIQUE: The patient's fasting blood glucose level, measured by glucometer before injection of FDG, was 99 mg/dL. After intravenous administration of FDG, noncontrast CT images were obtained for attenuation correction and for fusion with emission PET images to allow for anatomical localization of PET findings. Emission PET images were then obtained. The study was interpreted on the [employer] workstation. The mean liver SUV (reported for quality control coordinator purposes) is 2.8. The total scanned area was skull vertex to knees. Images of the body were obtained starting 53 minutes after injection of tracer. All reported SUVs are maximum SUVs, unless otherwise specified. COMPARISON: 09/01/2024 FINDINGS: No FDG avid disease is seen to suggest suspicion for recurrence or distant metastasis. Unchanged partially calcified right thyroid nodule with mild FDG uptake consistent with patient's known multinodular goiter. Additional CT findings: Dental restorations are noted. Degenerative changes of the spine. Aortic and coronary calcifications. Small fat-containing umbilical hernia. Healed right pubic ramus fracture. Healed left rib fractures. Unchanged 3mm right lung nodule below PET/CT resolution. L1 superior endplate chronic compression deformity. Procedure Note Dehdashti, Farrokh, MD - 12/29/2024 EXAMINATION: TUMOR FDG-PET/CT IMAGING DATE OF STUDY: 12/29/2024 SCANNER: [facility] CS-Keys (SQ1). This is a high-resolution scanner, which can result in higher SUVs (and even detection of previously unrecognized small lesions) compared to older scanners. RADIOPHARMACEUTICAL: 8.13 mCi F-18 Fluorodeoxyglucose (FDG) i.v. 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 The study is requested for follow-up. Subsequent treatment strategy. TECHNIQUE: The patient's fasting blood glucose level, measured by glucometer before injection of FDG, was 99 mg/dL. After intravenous administration of FDG, noncontrast CT images were obtained for attenuation correction and for fusion with emission PET images to allow for anatomical localization of PET findings. Emission PET images were then obtained. The study was interpreted on the [employer] workstation. The mean liver SUV (reported for quality control coordinator purposes) is 2.8. The total scanned area was skull vertex to knees. Images of the body were obtained starting 53 minutes after injection of tracer. All reported SUVs are maximum SUVs, unless otherwise specified. COMPARISON: 09/01/2024 FINDINGS: No FDG avid disease is seen to suggest suspicion for recurrence or distant metastasis. Unchanged partially calcified right thyroid nodule with mild FDG uptake consistent with patient's known multinodular goiter. Additional CT findings: Dental restorations are noted. Degenerative changes of the spine. Aortic and coronary calcifications. Small fat-containing umbilical hernia. Healed right pubic ramus fracture. Healed left rib fractures. Unchanged 3mm right lung nodule below PET/CT resolution. L1 superior endplate chronic compression deformity. IMPRESSION: No FDG PET evidence of malignancy. Dictated by: Scott Kapoor M.D. The radiology attending physician has personally reviewed this study, and had reviewed and/or edited this written report and agrees with it. Electronically signed by: David Corrigan M.D. Jalen R. Wischmeier STAB SETTER AND DRILLER IMG PET PROCEDURES Final Result * COLONOSCOPY (06/20/2023 12:46 PM CDT) Anatomical Region Laterality Modality Other Narrative Procedure Note Mora Ray MD PhD - 06/20/2023 12:46 PM CDT [facility] END[facility] Patient Name: Mariana Mccracken Procedure Date: 06/20/2023 12:46 PM Date of : 1945 Admit Type: Outpatient Age: 78 Gender: Female Attending MD: Mora Ray M.D. [facility] 4 Note Status: Addendum Procedure: Colonoscopy Indications: malignancy of unknown origin Referring MD: Cora Bell MD, PHD Providers: Mora Ray M.D. Medicines: Monitored Anesthesia Care Complications: No immediate complications. Estimated Blood Loss: Estimated blood loss was minimal. Procedure: Pre-Anesthesia Assessment: - Immediately prior to administration ofmedications, the patient was re-assessed for adequacy to receive sedatives. - The risks and benefits of the procedure and the sedation options and risks were discussed with the patient. All questions were answered and informed consent was obtained. The benefits, risks and alternatives of theprocedure and sedation were discussed and informed consentwas obtained. All questions were answered. Please referto the signed informed consent document in the medical record. The scope was passed under direct vision.The CF [id number] endoscope was introduced through the anus and advanced to the cecum, identified by appendiceal orifice and ileocecal valve. The colonoscopy was performed without difficulty. The patient tolerated the procedure well. The qualityof the bowel preparation was evaluated using the BBPS ([place] Bowel Preparation Scale) with scores of:Right Colon = 1 (portion of mucosa seen, but other areasnot well seen due to staining, residual stool and/or opaque liquid), Transverse Colon = 2 (minor amountof residual staining, small fragments of stool and/or opaque liquid, but mucosa seen well) and Left Colon= 2 (minor amount of residual staining, smallfragments of stool and/or opaque liquid, but mucosa seenwell). The total BBPS score equals 5. The quality of the bowel preparation was fair. The bowel preparationused was GoLYTELY via split dose instruction. Thequality of the bowel preparation was fair. Findings: A 3 mm polyp was found in the sigmoid colon. The polyp was sessile.The polyp was removed with a jumbo cold forceps. Resection and retrieval were complete. Estimated blood loss was minimal. Internal hemorrhoids were found during retroflexion. Impression: - Preparation of the colon was fair. - One 3 mm polyp in the sigmoid colon, removed witha jumbo cold forceps. Resected and retrieved. - Internal hemorrhoids. - No large polyp or mass found in the colon,although the preparation was not sufficient for screening purpose. Recommendation: - Await pathology results. Attending Participation: I personally performed the entire procedure. Electronically signed by Mora Ray MD Mora Ray M.D. 06/20/2023 1:29:49 PM . Number of Addenda: 1 Note Initiated On: 06/20/2023 12:46 PM Recognized by the [place] [employer] for promoting quality in endoscopy Addendum Number: 1 Addendum Date: 06/20/2023 1:47:59 PM Restart rivaroxaban tomorrow. Electronically signed by Mora Ray MD Mora Ray M.D. 06/20/2023 1:48:52 PM . us Mora Ray MD PhD ENDOSCOPY PROCEDURES Edited Res ult - Final * Screening Mammogram Bilateral W Robbie (06/18/2023 11:45 AM CDT) Anatomical Region Laterality Modality Breast Bilateral Mammography 06/27/2023 2:44 PM CDT Impressions 06/27/2023 2:44 PM CDT No evidence of malignancy in either breast. FINAL ASSESSMENT: BI-RADS Category 1: Negative. RECOMMENDATION: Recommend return for annual screening mammogram in 12 months. Electronically signed by: Dana Walker M.D. Narrative 06/27/2023 2:44 PM CDT EXAMINATION: BILATERAL SCREENING MAMMOGRAM COMPARISON: Multiple prior studies, most recently 06/22/2022 and dating back to 04/01/2020. TECHNIQUE: Full-field 2D and digital breast tomosynthesis (DBT) images were obtained. CAD was utilized. BREAST PARENCHYMAL COMPOSITION: There are scattered areas of fibroglandular density. FINDINGS: There is no suspicious mass, calcification, or distortion in either breast. There has been no significant interval change from the prior study. us Cora Bell MD PhD IMG MAMMO PROCEDURES Final Result from Last 3 Months or Most Recently Relevant to Health Maintenance Insurance [employer] MEDICARE COUNTS INCLUDE 234 BEDS AT THE [facility] MEDICARE COUNTS INCLUDE 234 BEDS AT THE [facility] MEDICARE Care Teams Privacy Manager Relationship Specialty Start Date End Date Geo Hernandez MD [address] [place] [address] PCP - General Family Practice 7/6/23 Genevieve Sanchez MD [address] [place] [address] Consulting Physician Endocrinology 07/12/20 Pedro Pablo Akers MD [address] [place] [address] Referring Physician Dermatology 05/03/23 Cora Bell MD PhD [address] [facility] [address] [place] [address] Medical Oncologist/Polisher Sand Medical Oncology 05/07/23 Romel Louie MD [address] [facility] [address] [place] [address] Medical Oncologist/Polisher Sand Medical Oncology 08/15/23 Santi Baez III, MD PhD [address] [facility] [address] [place], [place] [id number] Radiation Oncologist Radiation Oncology 01/08/24
--- OUTSIDE RECORDS SUMMARY | 2025-03-25 09:20 | XMS_ITS ---
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 Multiple thyroid nodules 06/11/2019 Current Treatment and Therapy Plans No current plan information found. Past Treatment and Therapy Plans No past plan information found. 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 I have therefore recommended that she remain anticoagulated for thromboprophylaxis. Borderline high blood pressure 12/10/2019 08/09/2021
--- OUTSIDE RECORDS SUMMARY | 2025-03-25 09:20 | XMS_ITS | Clinical Summary ---
Author Organization [facility] [employer] Address [address] [place] [address] Care Team Providers Care Exhibit Artist Name Role Phone Boston Aldrich MD Primary Care Provider [phone] Source Comments [facility] [employer],non-owned Affiliates and Associated Physician Practices is amultiple site organization consisting of ambulatory clinics and hospital sitesin [place], [place], [place] and [place]. This disclosure is being madepursuant to the Care Everywhere program and may not contain all information available regarding this patient. Last updated 18.[facility] [employer] Allergies Active Allergy Reactions Criticality Noted Date Comments Penicillins Rash Medium 02/06/2019 Mouth sores Medications * Be aware that medications may not be up to date on this document. Alwaysverify current medications with the patient. Metoprolol Succinate (TOPROL XL PO) Active DOXYCYCLINE HYCLATE PO Active Family History Medical History Relation Name Comments Cancer - Lung Father Cancer - Other Mother brain Relation Name Status Comments Father Mother Social History Tobacco Use Types Packs/Day Years Used Date Smoking Tobacco: Never Smokeless Tobacco: Never Comments No Sex and Gender Information Value Date Recorded Sex Assigned at Not on file Legal Sex Female 8:59 AM CDT Gender Identity Not on file Sexual Orientation Not on file Last Filed Vital Signs Vital Sign Reading Time Taken Comments Blood Pressure 130/88 02/06/2019 9:14 AM CDT Pulse 85 02/06/2019 9:14 AM CDT Temperature 37.1 C (98.8 F) 02/06/2019 9:14 AM CDT Respiratory Rate 16 02/06/2019 9:14 AM CDT Oxygen Saturation 98% 02/06/2019 9:14 AM CDT Inhaled Oxygen Concentration - - Weight 68 kg (150 lb) 02/06/2019 9:14 AM CDT Height 170.2 cm (5' 7) 02/06/2019 9:14 AM CDT Body Mass Index 23.49 02/06/2019 9:14 AM CDT Plan of Treatment Health Maintenance Due Date Last Done Comments BONE DENSITY TESTING 1945 DTAP/TDAP/TD VACCINES (1 - Tdap) 1965 PNEUMOCOCCAL VACCINE 50+ (1 of 1 - PCV) 01/06/1996 ZOSTER VACCINE (1 of 2) 01/06/1996 Respiratory Syncytial Virus (RSV) Vaccine Pt: or over 60 yrs (1 - 1-dose 75+ series) 2021 COVID-19 VACCINE ( - 2023-2 5 season) 2024 DEPRESSION SCREENING 10/29/2024 INFLUENZA VACCINE (Season Ended) 2025 HEPATITIS B VACCINE Aged Out No longe r eligible based on patient's age to complete this topic HIB VACCINE Aged Out No longer eligi ble based on patient's age to complete this topic HPV VACCINE Aged Out No longer eligi ble based on patient's age to complete this topic MENINGOCOCCAL (Group B) VACC INE SHARED DECISION-MAKING Aged Out No longer eligibl e based on patient's age to complete this topic MENINGOCOCCAL GROUPS A/C/Y/W VACCINE Aged Out No longer eligible b ased on patient's age to complete this topic Insurance [facility] MANAGED MEDICARE ADV Care Teams Exhibit Artist Relationship Specialty Start Date End Date Boston Aldrich MD [address] [place] [address] PCP - General Family Medicine 02/06/19
--- OUTSIDE RECORDS SUMMARY | 2025-03-25 09:20 | XMS_ITS | Encounter Summary ---
Author Organization [facility] Address [address] [place] [address] Phone Care Team Providers Care Web Feeder Name Role Phone Genevieve Sanchez MD Unavailable [phone] Chi Valdivia DO Primary Care Provider [phone] Kristen You MD Primary Care Provider [phone] Geo Hernandez MD Primary Care Provider [phone] Pedro Pablo Akers MD Unavailable Cora Bell MD PhD Unavailable [phone] Benoit Blanton MD Unavailable Romel Louie MD Unavailable [phone] Sasha MAS MD PhD, Santi Archuleta Unavailable Encounter Details Date Type Department Care Team (Latest Contact Info) Description 06/22/2022 Orders Only [facility] Scanning, Provider Social History Tobacco Use Types Packs/Day Years Used Date Smoking Tobacco: Never Smokeless Tobacco: Never Alcohol Use Standard Drinks/Week Comments Yes 2 (1 standard drink = 0.6 oz pur e alcohol) AUDIT-C Answer Date Recorded Q1: How often do you have a drink containing alc ohol? 2-3 times a week 03/16/2021 Q2: How many drinks containi ng alcohol do you have on a typical day when you are drinking? 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 Gender Identity Female 05/14/2019 9:25 AM CDT Sexual Orientation Not on file documented as of this encounter Plan of Treatment Scheduled Procedures Name Priority Associated Diagnoses Date/Ti me ESOPHAGOGASTRODUODENOSCOPY Carcinoma of unknown primary (HCC) documented as of this encounter Procedures Procedure Name Priority Date/Time Associated Diagnosis Comments SCAN - RADIOLOGY/IMAGING 06/22/2022 documented in this encounter Results * SCAN - RADIOLOGY/IMAGING (06/22/2022) Anatomical Region Laterality Modality Other us Provider Scanning Final Result documented in this encounter Visit Diagnoses Not on filedocumented in this encounter Care Teams Web Feeder Relationship Specialty Start Date End Date Chi Valdivia DO [address] [place] [address] PCP - General Internal Medicine 06/15/22 12/26/22 Kristen You MD [address] [place] [address] PCP - General Internal Medicine 12/27/22 05/02/23 Geo Hernandez MD [address] [place] [address] PCP - General Family Practice 05/03/23 Genevieve Sanchez MD [address] [place] [address] Consulting Physician Endocrinology 07/12/20 Pedro Pablo Akers MD [address] [facility] [address] [address] Referring Physician Dermatology 05/03/23 Cora Bell MD PhD [address] [facility] [address] [place] [address] Medical Oncologist/Charter Coach Driver Medical Oncology 05/07/23 Benoit Blanton MD [address] [place] [address] Consulting Physician Medical Oncology 08/15/23 08/31/24 Romel Louie MD [address] [place] [address] Medical Oncologist/Charter Coach Driver Medical Oncology 08/15/23 Santi Baez III, MD PhD [address] [place] [address] Radiation Oncologist Radiation Oncology 01/08/24 documented as of this encounter
--- OUTSIDE RECORDS SUMMARY | 2025-03-25 09:20 | XMS_ITS | Encounter Summary ---
Author Organization [facility] Address [address] [place] [address] Phone Care Team Providers Care Engine Lathe Tender Name Role Phone Genevieve Sanchez MD Unavailable [phone] Geo Hernandez MD Primary Care Provider [phone] Pedro Pablo Akers MD Unavailable Cora Bell MD PhD Unavailable [phone] Benoit Blanton MD Unavailable Romel Louie MD Unavailable [phone] Sasha MAS MD PhD, Santi Archuleta Unavailable Encounter Details Date Type Department Care Team (Latest Contact Info) Description 08/27/2023 Orders Only [facility] Scanning, Provider [...] of Binge Drinking Not on file 02/26 Personal Safety Answer Date Recorded Have you ever been in or are you currently in a harmful physical or emotional relationship or is someone making you feel afraid or unsafe? 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 Gender Identity Female 05/14/2019 9:25 AM CDT Sexual Orientation Not on file documented as of this encounter Plan of Treatment Scheduled Procedures Name Priority Associated Diagnoses Date/Ti me ESOPHAGOGASTRODUODENOSCOPY Carcinoma of unknown primary (HCC) documented as of this encounter Procedures Procedure Name Priority Date/Time Associated Diagnosis Comments SCAN - PATHOLOGY 08/27/2023 documented in this encounter Results * SCAN - PATHOLOGY (08/27/2023) us Provider Scanning Final Result documented in this encounter Visit Diagnoses Not on filedocumented in this encounter Care Teams Engine Lathe Tender Relationship Specialty Start Date End Date Geo Hernandez MD [address] [place], [place] [id number] PCP - General Family Practice 05/03/23 Genevieve Sanchez MD [address] [place] [address] Consulting Physician Endocrinology 07/12/20 Pedro Pablo Akers MD [address] [place] [address] Referring Physician Dermatology 05/03/23 Cora Bell MD PhD [address] [facility] [address] [place] [address] Medical Oncologist/Peanut Picker Medical Oncology 05/07/23 Benoit Blanton MD [address] [place] [address] Consulting Physician Medical Oncology 08/15/23 08/31/24 Romel Louie MD [address] [place] [address] Medical Oncologist/Peanut Picker Medical Oncology 08/15/23 Santi Baez III, MD PhD [address] [place] [address] Radiation Oncologist Radiation Oncology 01/08/24 documented as of this encounter
--- OUTSIDE RECORDS SUMMARY | 2025-03-25 09:20 | XMS_ITS | Encounter Summary ---
Author Organization [facility] Address [address] [place] [address] Phone Care Team Providers Care Heel Nail Rasper Name Role Phone Genevieve Sanchez MD Unavailable [phone] Geo Hernandez MD Primary Care Provider [phone] Pedro Pablo Akers MD Unavailable Cora Bell MD PhD Unavailable [phone] Fa'Benoit beltran MD Unavailable Romel Louie MD Unavailable [phone] Sasha MAS MD PhD, Santi Archuleta Unavailable Encounter Details Date Type Department Care Team (Late st Contact Info) Description 09/14/2023 Orders Only [facility] Oncology [address] [facility] 7th [place] [address] [place] [address] Romel Louie MD [address] [facility] [address] [place] [address] Social History Tobacco Use Types Packs/Day Years [...] on file 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 Gender Identity Female 05/14/2019 9:25 AM CDT Sexual Orientation Not on file documented as of this encounter Plan of Treatment Scheduled Procedures Name Priority Associated Diagnoses Date/Ti me ESOPHAGOGASTRODUODENOSCOPY Carcinoma of unknown primary (HCC) documented as of this encounter Visit Diagnoses Not on filedocumented in this encounter Care Teams Heel Nail Rasper Relationship Specialty Start Date End Date Geo Hernandez MD [address] [place], [place] [id number] PCP - General Family Practice 05/03/23 Genevieve Sanchez MD [address] [place] [address] Consulting Physician Endocrinology 07/12/20 Pedro Pablo Akers MD [address] [place] [address] Referring Physician Dermatology 05/03/23 Cora Bell MD PhD [address] [facility] [address] [place] [address] Medical Oncologist/Supervisor Nut Processing Medical Oncology 05/07/23 Benoit Blanton MD [address] [place] [address] Consulting Physician Medical Oncology 08/15/23 08/31/24 Romel Louie MD [address] [place] [address] Medical Oncologist/Supervisor Nut Processing Medical Oncology 08/15/23 Santi Baez III, MD PhD [address] [place] [address] Radiation Oncologist Radiation Oncology 01/08/24 documented as of this encounter
--- OUTSIDE RECORDS SUMMARY | 2025-03-25 09:20 | XMS_ITS | Clinical Summary ---
Author Organization [facility] [address] Address [address] [place] [address] Care Team Providers Care Supervisor Sulfuric Acid Plant Name Role Phone Genevieve Sanchez MD Unavailable [phone] Geo Hernandez MD Primary Care Provider [phone] Pedro Pablo Akers MD Unavailable Cora Bell MD PhD Unavailable Romel Louie MD Unavailable [phone] Sasha MAS MD PhD, Santi Archuleta Unavailable Allergies Active Allergy Reactions Criticality Noted Date [...] PhD on 12/06/2023 Medication monitoring encounter 02/14/2022 [facility] current use of 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 drug Syncope and [...] with atrial fibrillation: a report of the [place] [employer]/[place] [employer] Task Force on Practice Guidelines [...] 4:30 PM CDT): The patient has a [id number] score of 3 (annualized risk of stroke 3%). I have therefore recommended that she remain anticoagulated for thromboprophylaxis. 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; Medication monitoring encounter; Chronic anticoagulation; Essential hypertension 12/29/2024 9:20 AM NURSE MIDWIFE Office Visit [facility] Oncology [address] [place] [phone] Romel Louie MD Poorly differentiated malignant carcinoid tumor (HCC); Carcinoma of unknown primary (HCC) 12/29/2024 9:00 AM NURSE MIDWIFE Clinical Support [facility] - Lab Collection [address] [place] [address] [address] [place] [address] Poorly differentiated malignant carcinoid tumor (HCC); Carcinoma of unknown primary (HCC) 12/29/2024 8:15 AM NURSE MIDWIFE Lab [facility] Oncology Lab [address] [place] [phone] Poorly differentiated malignant carcinoid tumor (HCC); Carcinoma of unknown primary (HCC) 12/29/2024 6:46 AM NURSE MIDWIFE - 12/29/2024 11:59 PM NURSE MIDWIFE Hospital Encounter [facility] - [facility] [address] [facility] [address] [place] [address] Discharge Disposition: Discharge to home or self care 12/29/2024 6:45 AM NURSE MIDWIFE - 12/29/2024 11:59 PM NURSE MIDWIFE Hospital Encounter [facility] - PET [address] [facility] [facility] [address] [facility] [place] [address] Poorly differentiated malignant carcinoid tumor (HCC); Carcinoma of unknown primary (HCC) Discharge Disposition: Discharge to home or self care from Last 3 Months Immunizations Immunization Administration Dates Next Due Influenza, Quadrivalent, Hig h Dose, Preservative Free, Intrr 08/01/2022,07/25/2021,08/04/2020 Influenza, Trivalent, High D ose, Split, Preservative Free, Intramuscular 08/11/2019,08/06/2018,08/05/2018,07/30,08/14/2016,08/04/2015 Influenza, Unspecified 08/08/2023 ZOSTER Recombinant 02/23/2022,12/20/2021 Surgical History Surgery Date Site/Laterality Comments CATARACT EXTRACTION 07/2022 CARPAL TUNNEL RELEASE 01/27/2023 - 02/25/2023 Left Medical History Medical History Date Comments Osteoporosis 10/29/2009 Thyroid disease 03/19/2019 Arrhythmia Hypertension Atrial fibrillation (HCC) 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 Family History Medical History Relation Name Comments Alcohol abuse Father Marty Cancer Father Marty Diabetes Father Marty Cancer Mother Leslye Hypertension Mother Leslye Relation Name Status Comments Father Marty Mother Leslye Social History Tobacco Use Types Packs/Day Years [...] on file Legal Sex Female 8:16 PM NURSE MIDWIFE Gender Identity Female 05/14/2019 9:25 AM CDT Sexual Orientation Not on file Obstetrics History Para Term AB IAB SAB Ectopic Multiple Livin g Live Births 2 2 2 Date Outcome GA Total Labor Labor/2nd/3rd Weight Sex Type Anes PTL Veronica A1 A5 Name Clin Term Term Last Filed Vital Signs Vital Sign Reading Time Taken Comments Blood Pressure 138/80 01/22/2025 9:40 AM CDT Pulse 61 01/22/2025 9:40 AM CDT Temperature 36.8 C (98.3 F) 12/29/2024 9:27 AM NURSE MIDWIFE Respiratory Rate 18 12/29/2024 9:27 AM NURSE MIDWIFE Oxygen Saturation 98% 01/22/2025 9:40 AM CDT Inhaled Oxygen Concentration - - Weight 68 kg (150 lb) 01/22/2025 9:40 AM CDT Height 167.6 cm (5' 6) 01/22/2025 9:40 AM CDT Body Mass Index 24.21 01/22/2025 9:40 AM CDT Plan of Treatment Scheduled Procedures Name Priority Associated Diagnoses Date/Ti me ESOPHAGOGASTRODUODENOSCOPY Carcinoma of unknown primary (HCC) Health Maintenance Due Date Last Done Comments Depression Screening 1945 Hepatitis C Screening 1945 Osteoporosis Screening-Bone Density Scan 1945 DTaP/Tdap/Td Vaccine (1 - Tdap) 1957 Hepatitis B Screening 01/06/1964 Pneumococcal vaccine 65+ (1 of 1 - PCV) 01/06/1996 Well Visit 65+ 2011 Covid-19 Vaccine (2023-2 5 season) 2024 08/01/2022, 03/13/2022, 08/02/2021, Additional history exists Fall Risk Assessment 11/05/2024 11/05/2023, 06/20/20 23 Influenza Vaccine (Season Ended) 2025 08/08/2023, 08/01/2022, 07/25/2021, Additional history exists Zoster Vaccine Completed 02/23/2022, 12/20/2021 Breast Cancer Screening-Mammogram Discontinued 023 Colon Cancer Screening-CT Colonography Discontinued 06/20/2023 Colon Cancer Screening-Colonoscopy Discontinued 06/20/2023 Colon Cancer Screening-DNA Stool Discontinued 06/20/20 Colon Cancer Screening-FIT Discontinued 06/20/2023 Colon Cancer Screening-FOBT Discontinued 06/20/2023 Colon Cancer Screening-Sigmoidoscopy Discontinued 06/20/2023 Colorectal Cancer Screening Discontinued Medical Devices Implanted Type Area Civil Geotechnical Engineer Device Identifier Shelf Expiration Date Model / Serial / Lot [employer] [id number] Vascade 6/7fr Bioabsorbable Vascular System Compression Collagen - [id number] - [id number] Implanted:Qty: 1 on 03/16/2021 by Mesfin Han MD at [facility] Collagen [employer] 10/05/2022 [id number] [id number] / [id number] / [id number] [employer] [id number] System 6-12fr Mvp Venous Closure Vascade - [id number] - [id number] Implanted:Qty: 1 on 03/16/2021 by Mesfin Han MD at [facility] Collagen [employer] 01/13/2023 [id number]-[id number] [id number] / [id number] / [id number] [employer] [id number] System 6-12fr Mvp Venous Closure Vascade - [id number] - [id number] Implanted:Qty: 1 on 03/16/2021 by Mesfin Han MD at [facility] Collagen [employer] 01/13/2023 [id number]-[id number] 0U / [id number] / [id number] [employer] [id number] System 6-12fr Mvp Venous Closure Vascade - [id number] - [id number] Implanted:Qty: 1 on 03/16/2021 by Mesfin Han MD at [facility] Collagen [employer] 01/13/2023 800-612C-1 0U / [id number] / [id number] Procedures Procedure Name Priority Date/Time Associated Diagnosis Comments ELECTROCARDIOGRAM REPORT Routine 01/22/2025 3:44 PM CDT PAF (paroxysmal atrial fibrillation) (HCC) EGFR Routine 12/29/2024 8:41 AM NURSE MIDWIFE 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) DIFFERENTIAL AUTO Routine 12/29/2024 8:41 AM NURSE MIDWIFE 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) CBC WITH AUTO DIFFERENTIAL Routine 12/29/2024 8:41 AM NURSE MIDWIFE 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) COMPREHENSIVE METABOLIC PANEL Routine 12/29/2024 8:41 AM NURSE MIDWIFE 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 73 m2 Comment: [...] last reviewed 2021. Blood 12/29/2024 8:41 AM NURSE MIDWIFE 12/29/2024 8:51 AM NURSE MIDWIFE us Jalen Stoll NP LAB BLOOD ORDERABLES Nuvia beckman Result NIALL KLINE [facility] Department of Laboratories [place], [place] [id number] * Differential, auto (12/29/2024 8:41 AM NURSE MIDWIFE) [facility] Neutrophil abs 2.1 1.5 - 6.5 K/cumm Comment:Testing performed by : [facility], [address] [place] [phone] Lymphocyte abs 1.4 0.8 - 3.3 K/cumm NIALL KLINE Comment:Testing performed by : [facility], [address] [place] [phone] Monocyte abs 0.5 0.2 - 0.8 K/cumm NIALL KLINE Comment:Testing performed by : [facility], [address] [place] [phone] Eosinophil abs 0.0 0.0 - 0.5 K/cumm [facility] Comment:Testing performed by : [facility], [address] [place] [phone] Basophil abs 0.0 0.0 - 0.1 K/cumm [facility] Comment:Testing performed by : [facility], [address] [place] [phone] Neutrophil pct 51.4 % [facility] Comment: Interpretive Data Percent cell count reference ranges are not reported, since discordance with absolute values may lead to misinterpretation of CBC data. Current Interpretive Data was last revised on 2018. Testing performed by: [facility], [address] [place] [phone] Lymphocyte pct 34.1 % [facility] Comment: Interpretive Data Percent cell count reference ranges are not reported, since discordance with absolute values may lead to misinterpretation of CBC data. Current Interpretive Data was last revised on 2018. Testing performed by: [facility], [address] [place] [phone] Monocyte pct 12.8 % [facility] Comment: Interpretive Data Percent cell count reference ranges are not reported, since discordance with absolute values may lead to misinterpretation of CBC data. Current Interpretive Data was last revised on 2018. Testing performed by: [facility], [address] [place] [phone] Eosinophil pct 1.2 % [facility] Comment: Interpretive Data Percent cell count reference ranges are not reported, since discordance with absolute values may lead to misinterpretation of CBC data. Current Interpretive Data was last revised on 2018. Testing performed by: [facility], [address] [place] [phone] Basophil pct 0.5 % [facility] Comment: Interpretive Data Percent cell count reference ranges are not reported, since discordance with absolute values may lead to misinterpretation of CBC data. Current Interpretive Data was last revised on 2018. Testing performed by: [facility], [address] [place] [address] Blood 12/29/2024 8:41 AM NURSE MIDWIFE 12/29/2024 8:53 AM NURSE MIDWIFE Jalen Stoll NP LAB BLOOD ORDERABLES Nuvia beckman Result [facility] KLINE [facility] Department [place] [address] * CBC with auto differential (12/29/2024 8:41 AM NURSE MIDWIFE) WBC 4.2 3.8 - 9.9 K/cumm Comment:Testing performed by : [facility], [address] [place] [address] Hgb 12.6 11.9 - 15.5 g/dL NIALL KLINE Comment:Testing performed by : [facility], [address] [place] [address] Hct 38.2 35.6 - 45.5 % CERALF BJ Comment:Testing performed by : [facility], [address] [place] [address] Plt 207 150 - 400 K/cumm CERALF KLINE Comment:Testing performed by : [facility], [address] [place] [address] MPV 7.8 6.8 - 10.4 fL CERALF BJ Comment:Testing performed by : [facility], [address] [place] [address] RBC 4.19 3.90 - 5.20 M/cumm CERALF [facility]J Comment:Testing performed by : [facility], [address] [place] [address] MCV 91.2 81.3 - 96.4 fL CERALF [facility]J Comment:Testing performed by : [facility], [address] [place] [address] MCH 30.2 27.1 - 33.3 pg CERALF BJ Comment:Testing performed by : [facility], [address] [place], [place] [phone] MCHC 33.1 32.3 - 35.7 g/dL NIALL [facility] Comment:Testing performed by : [facility], [address] [place], [place] [phone] RDW CV 12.8 11.1 - 14.9 % NIALL [facility] Comment:Testing performed by : [facility], [address] [place], [place] [phone] NRBC abs 0.00 0.00 - 0.01 K/cumm NIALL [facility] Comment:Testing performed by : [facility], [address] [place] [phone] Blood 12/29/2024 8:41 AM NURSE MIDWIFE 12/29/2024 8:53 AM NURSE MIDWIFE Jalen Stoll NP LAB BLOOD ORDERABLES Nuvia l Result Performing Organization Address [facility]/ZIP Co de Phone Number [facility] Department [place] [address] * Lactate dehydrogenase (LD) (12/29/2024 8:41 AM NURSE MIDWIFE) [facility] Lactate dehydrogenase (LDH) 157 100 - 250 Units/L Blood 12/29/2024 8:41 AM NURSE MIDWIFE 12/29/2024 8:51 AM NURSE MIDWIFE Jalen Stoll HAT STOCK LAMINATING MACHINE OPERATOR LAB BLOOD ORDERABLES Nuvia l Result Performing Organization Address City/[facility] Co de Phone Number [facility] [place] [address] * (ABNORMAL) Comprehensive metabolic panel (12/29/2024 8:41 AM NURSE MIDWIFE) [facility] Sodium 138 135 - 145 mmol/L Potassium, pl 3.8 3.3 - 4.9 mmol/L [facility] Chloride 103 97 - 110 mmol/L [facility] CO2 29 22 - 32 mmol/L [facility] Anion gap 6 2 - 15 mmol/L [facility] BUN 18 6 - 25 mg/dL [facility] Creatinine 0.57(L) 0.60 - 1.10 mg/dL [facility] Glucose 87 70 - 199 mg/dL [facility] Comment: Interpretive Data Fasting glucose [...] 8.6 8.5 - 10.3 mg/dL [facility] Bilirubin, total 0.3 0.1 - 1.2 mg/dL [facility] Protein, pl 6.9 6.5 - 8.5 g/dL [facility] Albumin 3.9 3.5 - 5.0 g/dL [facility] Alk phos 94 40 - 130 Units/L [facility] ALT 20 7 - 45 Units/L [facility] AST 21 10 - 45 Units/L [facility] Blood 12/29/2024 8:41 AM NURSE MIDWIFE 12/29/2024 8:51 AM NURSE MIDWIFE us Jalen Stoll NP LAB BLOOD ORDERABLES Nuvia beckman Result [facility] Department [place] [address] * PET/CT FDG Skull to Thigh (12/29/2024 8:37 AM NURSE MIDWIFE) Anatomical Region Laterality Modality N/A Positron Emissio n Tomography (PET) 12/29/2024 9:17 AM NURSE MIDWIFE Impressions 12/29/2024 9:49 AM NURSE MIDWIFE No FDG PET evidence of malignancy. Dictated by: Scott Kapoor M.D. The radiology attending physician has personally reviewed this study, and had reviewed and/or edited this written report and agrees with it. Electronically signed by: David Corrigan M.D. Narrative 12/29/2024 9:49 AM NURSE MIDWIFE EXAMINATION: TUMOR FDG-PET/CT IMAGING DATE OF STUDY: 12/29/2024 SCANNER: [employer] Play (SQ1). This is a high-resolution scanner, which [...] obtained. The study was interpreted on the Nutrino workstation. The mean liver SUV (reported for software quality analyst purposes) is 2.8. The total scanned area [...] superior endplate chronic compression deformity. Procedure Note David Corrigan MD - 12/29/2024 EXAMINATION: TUMOR FDG-PET/CT IMAGING DATE OF STUDY: 12/29/2024 SCANNER: [facility] Quadra (SQ1). This is a high-resolution scanner, which [...] obtained. The study was interpreted on the Nutrino workstation. The mean liver SUV (reported for software quality analyst purposes) is 2.8. The total scanned area [...] Electronically signed by: David Corrigan M.D. Jalen Stoll NP IMG PET PROCEDURES Final Result * COLONOSCOPY (06/20/2023 12:46 PM CDT) Anatomical Region Laterality Modality Other Narrative Procedure Note Mora Ray MD PhD - 06/20/2023 12:46 PM CDT GI ENDOSCOPY [facility] Patient Name: Mariana Mccracken Procedure Date: 06/20/2023 12:46 PM Date of : 1945 Admit Type: Outpatient Age: 78 Gender: Female Attending MD: Mora Ray M.D. Room: [facility] ENDOSCOPY ROOM 4 Note Status: Addendum Procedure: [...] scope was passed under direct vision.The CF [id number] endoscope was introduced through the anus and advanced to the cecum, identified by appendiceal orifice and ileocecal valve. The colonoscopy was performed without difficulty. The patient tolerated the procedure well. The qualityof the bowel preparation was evaluated using the BBPS (Commiskey Bowel Preparation Scale) with scores of:Right Colon [...] On: 06/20/2023 12:46 PM Recognized by the [place] [employer] for promoting quality in endoscopy Addendum Number: 1 Addendum Date: 06/20/2023 1:47:59 PM Restart rivaroxaban tomorrow. Electronically signed by Mora Ray MD Mora Ray M.D. 06/20/2023 1:48:52 PM . oMra Ray MD PhD ENDOSCOPY PROCEDURES Edited Res [...] significant interval change from the prior study. Cora Bell MD PhD IMG MAMMO PROCEDURES Final Result from Last 3 Months or Most Recently Relevant to Health Maintenance Insurance [employer] MEDICARE T MEDICARE T MEDICARE Care Teams Supervisor Sulfuric Acid Plant Relationship Specialty Start Date End Date Geo Hernandez MD [address] [place] [address] PCP - General Family Practice 05/03/23 Genevieve Sanchez MD [address] [place] [address] Consulting Physician Endocrinology 07/12/20 Pedro Pablo Akers MD [address] [address] Referring Physician Dermatology 05/03/23 Cora Bell MD PhD [address] [place] [address] Medical Oncologist/Drug Discovery Informatics Specialist Medical Oncology 05/07/23 Romel Louie MD [address] [place] [address] Medical Oncologist/Drug Discovery Informatics Specialist Medical Oncology 08/15/23 Santi Baez III, MD PhD [address] [place] [address] Radiation Oncologist Radiation Oncology 01/08/24
--- OUTSIDE RECORDS SUMMARY | 2025-03-25 09:20 | XMS_ITS | Encounter Summary ---
Author Organization [facility] Address [address] [place] [address] Phone Care Team Providers Care High School Librarian Name Role Phone Josue Draper MD Primary Care Provider [phone] Genevieve Sanchez MD Unavailable [phone] Chi Valdivia DO Primary Care Provider Kristen You MD Primary Care Provider [phone] Goe Hernandez MD Primary Care Provider [phone] Pedro Pablo Akers MD Unavailable Cora Bell MD PhD Unavailable [phone] Benoit Blanton MD Unavailable Romel Louie MD Unavailable [phone] Sasha MAS MD PhD, Santi Archuleta Unavailable Encounter Details Date Type Department Care Team (Latest Contact Info) Description 04/01/2020 Orders Only [facility] Scanning, Provider Social History Tobacco Use Types Packs/Day Years Used Date Smoking Tobacco: Never Smokeless Tobacco: Never Alcohol Use Standard Drinks/Week Comments Yes 0 (1 standard drink = 0.6 oz pur e alcohol) AUDIT-C Answer Date Recorded Frequency of Alcohol Consumption 2-4 times a sun05/15/2019 Average Number of Drinks 1 or 2 019 Frequency of Binge Drinking Not on file 04/28 Comments Unknown Sex and Gender Information Value Date Recorded Sex Assigned at Not on file Legal Sex Female 8:16 PM MIDDLEWARE ENGINEER Gender Identity Female 05/14/2019 9:25 AM CDT Sexual Orientation Not on file documented as of this encounter Plan of Treatment Scheduled Procedures Name Priority Associated Diagnoses Date/Ti me ESOPHAGOGASTRODUODENOSCOPY Carcinoma of unknown primary (HCC) documented as of this encounter Procedures Procedure Name Priority Date/Time Associated Diagnosis Comments SCAN - RADIOLOGY/IMAGING 04/01/2020 documented in this encounter Results * SCAN - RADIOLOGY/IMAGING (04/01/2020) Anatomical Region Laterality Modality Other us Provider Scanning Edited Result - Final documented in this encounter Visit Diagnoses Not on filedocumented in this encounter Care Teams High School Librarian Relationship Specialty Start Date End Date Josue Draper MD [address] [place], [place] [id number] PCP - General Internal Medicine 10/06/19 06/14/22 Chi Valdivia DO [address] [place], [place] [id number] PCP - General Internal Medicine 06/15/22 12/26/22 Kristen You MD [address] [place] [address] PCP - General Internal Medicine 12/27/22 05/02/23 Geo Hernandez MD [address] [place], [place] [id number] PCP - General Family Practice 05/03/23 Genevieve Sanchez MD [address] [place] [address] Consulting Physician Endocrinology 07/12/20 Pedro Pablo Akers MD [address] [place] [address] Referring Physician Dermatology 05/03/23 Cora Bell MD PhD [address] [facility] [address] [place] [address] Medical Oncologist/Administrative Office Specialist Medical Oncology 05/07/23 Benoit Blanton MD [address] [place] [address] Consulting Physician Medical Oncology 08/15/23 08/31/24 Romel Louie MD [address] [place] [address] Medical Oncologist/Administrative Office Specialist Medical Oncology 08/15/23 Santi Baez III, MD PhD [address] [place] [address] Radiation Oncologist Radiation Oncology 01/08/24 documented as of this encounter
--- OUTSIDE RECORDS SUMMARY | 2025-03-25 09:20 | XMS_ITS | Continuity of Care Document ---
Author Organization [facility] Address [address] [facility] [address] [place] [address] Phone Care Team Providers Care Marine Electrician Helper Name Role Phone Mariel Downey OD Unavailable [...] Providers Copied on Encounter [facility], [address] [place] [address], [place], [place], [id number], [place] tel:[phone] OPH CONSULT [facility] Post-Op (chief complaint) Presence of intraocular lens Dec-0 [address] [place] [address], [address], [place], [place], [id number], [place]. tel:[phone] Referring Provider: Geremias Gonzales, [address] [place] [address], [address] . tel:[phone] [facility], [address] [place] [address], [id number], [place] tel:[phone] [facility] No Information Dec-0 5 Radha Solorzano. [facility] Feroz Kruse[place], [place], [id number], [place]. tel:[phone] Referring Provider: Geremias Gonzales, [address] [place] [address], [address] . tel:[phone] OFFICE/OUTPA TIENT VISIT, [facility], [address] [place] [address], [id number], [place] tel:[phone] OPH CONSULT [facility] Retinal drusen (chief complaint) Retinal drusen, bilateralTear film insufficiency of bilateral lacrimal glandsPresenc e of pseudophakiaH istory of therapeutic radiationOthe r secondary cataract, bilateral Nov- 5 Shayan Floyd. [address] [place] [address], [address], [place], [place], [id number], [place]. tel:[phone] Referring Provider: Geremias Gonzales, [address] [place] [address], [address] . tel:[phone] OFFICE/OUTPA TIENT VISIT, [facility], [address] [place] [address], [id number], [place] tel:[phone] OPH CONSULT [facility] pseudophakia (chief complaint) Retinal drusen, bilateralHist ory of therapeutic radiationPres ence of pseudophakiaT ear film insufficiency of bilateral lacrimal glands Apr-0 4 Shayan Floyd. [address] [facility], [address], [place], [place], [id number], [place]. tel:[phone] Referring Provider: Geremias Gonzales, [address] [facility], [place], [address] . tel:[phone] OFFICE/OUTPA TIENT VISIT, [facility], [address], [place], [place], [id number], tel:[phone] [facility] blurry vision (chief complaint)irr itation (chief complaint) Age-related nuclear cataract, bilateralChal azion left upper eyelid No Information Referring Provider: Yossi Lambert MD, [address] [place] [address] [address], [place], [address]. tel:[phone] Family History Family Member Type Diagnosis Age At Onset Problem No family history of Glaucom a Father Problem Diabetes mellitus Problem No family history of Macular degeneration Payers Payer name Insurance type Covered alliance party ID Authoriza tion(s) No Information Social History Type Description Quantity Date Captured Comments Alcohol Use Details Unknown Caffeine Use Details Unknown Tobacco Use Status No Information Smoking Status No Information Sex Female Chief Complaint And Reason For Visit From encounter dated '12/31/2024 15:15'. Post-Op (chief complaint). Description: Additional information: 1 [...]
--- OUTSIDE RECORDS SUMMARY | 2025-03-25 09:20 | XMS_ITS | Encounter Summary ---
Author Organization [facility] Address [address] [place] [address] Phone Care Team Providers Care Director Of Special Services Name Role Phone Josue Draper MD Primary Care Provider [phone] Genevieve Sanchez MD Unavailable [phone] Chi Valdivia DO Primary Care Provider [phone] Kristen You MD Primary Care Provider [phone] Geo Hernandez MD Primary Care Provider [phone] Pedro Pablo Akers MD Unavailable Cora Bell MD PhD Unavailable [phone] Benoit Blanton MD Unavailable Romel Louie MD Unavailable [phone] Sasha MAS MD PhD, Santi Archuleta Unavailable Encounter Details Date Type Department Care Team (Latest Contact Info) Description 04/14/2021 Orders Only [facility] Scanning, Provider [...] on file 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 Gender Identity Female 05/14/2019 9:25 AM CDT Sexual Orientation Not on file documented as of this encounter Plan of Treatment Scheduled Procedures Name Priority Associated Diagnoses Date/Ti me ESOPHAGOGASTRODUODENOSCOPY Carcinoma of unknown primary (HCC) documented as of this encounter Procedures Procedure Name Priority Date/Time Associated Diagnosis Comments SCAN - RADIOLOGY/IMAGING 04/14/2021 documented in this encounter Results * SCAN - RADIOLOGY/IMAGING (04/14/2021) Anatomical Region Laterality Modality Other us Provider Scanning Final Result documented in this encounter Visit Diagnoses Not on filedocumented in this encounter Care Teams Director Of Special Services Relationship Specialty Start Date End Date Josue Draper MD [address] [facility] [place] [place] [address] PCP - General Internal Medicine 10/06/19 06/14/22 Chi Valdivia DO [address] [place] [address] PCP - General Internal Medicine 06/15/22 12/26/22 Kristen You MD [address] [place] [address] PCP - General Internal Medicine 12/27/22 05/02/23 Geo Hernandez MD [address] [place] [address] PCP - General Family Practice 05/03/23 Genevieve Sanchez MD [address] [place] [address] Consulting Physician Endocrinology 07/12/20 Pedro Pablo Akers MD [address] [place] [address] Referring Physician Dermatology 05/03/23 Cora Bell MD PhD [address] [facility] [address] [place] [address] Medical Oncologist/Size Cutter Medical Oncology 05/07/23 Benoit Blanton MD [address] [place] [address] Consulting Physician Medical Oncology 08/15/23 08/31/24 Romel Louie MD [address] [place] [address] Medical Oncologist/Size Cutter Medical Oncology 08/15/23 Santi Baez III, MD PhD [address] [place] [address] Radiation Oncologist Radiation Oncology 01/08/24 documented as of this encounter
--- OUTSIDE RECORDS SUMMARY | 2025-03-25 09:20 | XMS_ITS | Continuity of Care Document ---
Author Organization [facility] Address [address] [place] [address] Phone Care Team Providers Care Mill Hand Plate Mill Name Role Phone [facility] Unavailable Unavail able Dana Oconnor Unavailable Unavailable Procedures Procedure Date Vision Svcs Frames Purchases Progressive Lens, Plastic Lens-Index 1.54-1.79 Glass Anti-reflective Coating Specialty Occup MultiFocal Lens,Per Lens Advance Directives Directive Yes / No Effective Date File Name No Information Encounters Encounter Description Practice Location Reason(s) For Visit Diagnoses Date Provider Providers Copied on Encounter [facility], [address], [place], [place], [id number], [place] tel:[phone] [facility] No Information [address] [facility] [address] [facility], [facility] [address], [place], [place], [id number] , [place]. tel:[phone] Referring Provider: Yossi Jaquez MD, [address] [facility] [address], [place], [address]. tel:[phone] g Provider: Dana Oconnor, [address] [place], [address]. tel:[phone] Family History Family Member Type Diagnosis Age At Onset No Information Payers Payer name Insurance type Covered green party ID Authoriza tion(s) [employer] Plan [place] [id number] Social History Type Description Quantity Date Captured [...]
--- OUTSIDE RECORDS SUMMARY | 2025-03-25 09:20 | XMS_ITS | Encounter Summary ---
Author Organization [facility] Address [address] [place] [address] Phone Care Team Providers Care Rn Clinical Coordinator Name Role Phone Genevieve Sanchez MD Unavailable [phone] Geo Hernandez MD Primary Care Provider [phone] Pedro Pablo Akers MD Unavailable Cora Bell MD PhD Unavailable [phone] Benoit Blanton MD Unavailable Romel Louie MD Unavailable [phone] Sasha MAS MD PhD, Santi Archuleta Unavailable Encounter Details Date Type Department Care Team (Late st Contact Info) Description 07/05/2024 Orders Only [facility] Scanning, Provider Social History Tobacco Use Types [...] on file 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 Gender Identity Female 05/14/2019 9:25 AM CDT Sexual Orientation Not on file documented as of this encounter Plan of Treatment Scheduled Procedures Name Priority Associated Diagnoses Date/Ti me ESOPHAGOGASTRODUODENOSCOPY Carcinoma of unknown primary (HCC) documented as of this encounter Procedures Procedure Name Priority Date/Time Associated Diagnosis Comments SCAN - RADIOLOGY/IMAGING 07/05/2024 documented in this encounter Results * SCAN - RADIOLOGY/IMAGING (07/05/2024) Anatomical Region Laterality Modality Other us Provider Scanning Final Result documented in this encounter Visit Diagnoses Not on filedocumented in this encounter Care Teams Rn Clinical Coordinator Relationship Specialty Start Date End Date Geo Hernandez MD [address] [place], [place] [id number] PCP - General Family Practice 05/03/23 Genevieve Sanchez MD [address] [place] [address] Consulting Physician Endocrinology 07/12/20 Pedro Pablo Akers MD [address] [place] [address] Referring Physician Dermatology 05/03/23 Cora Bell MD PhD [address] [facility] [address] [place] [address] Medical Oncologist/Head And Neck Surgeon Medical Oncology 05/07/23 Fa'Benoit beltran MD [address] [place] [address] Consulting Physician Medical Oncology 08/15/23 08/31/24 Romel Louie MD [address] [place] [address] Medical Oncologist/Head And Neck Surgeon Medical Oncology 08/15/23 Santi Baez III, MD PhD [address] [place] [address] Radiation Oncologist Radiation Oncology 01/08/24 documented as of this encounter
[2025-03-25 11:37] LABS: Hemoglobin 12.2 g/dL (12.0-15.0); Mean Corpuscular HGB Conc 32.1 g/dl (32-36); Mean Corpuscular Hemoglobin 30.1 pg (26-34); Mean Corpuscular Volume 93.8 fl (80-100); Mean Platelet Volume 9.2 fl (7.4-10.4); Platelet Count Result 192 k/mm3 (150-375); Red Blood Count 4.05 M/mm3 (4.2-5.4); Red Cell Distribution Width 12.6 % (11.5-14.5); White Blood Count 4.8 K/mm3 (4.5-10.0)
[2025-03-25 11:52] LABS: Alanine Aminotransferase 17 U/L (6-35); Albumin Level 3.9 g/dL (3.5-5.1); Alkaline Phosphatase 80 U/L (38-126); Anion Gap 4 mmol/L (4-12); Aspartate Amino Transferase 37 U/L (14-36); Bilirubin,Total 0.5 mg/dL (0.2-1.3); Blood Urea Nitrogen 13 mg/dL (7-17); CRP < 0.5 mg/dL (<1.0); Carbon Dioxide 32 mmol/L (22-30); Chloride 99 mmol/L (98-107); Estimated Glomerular Filt Rate > 60; Glucose 87 mg/dL (65-110); Potassium 3.5 mmol/L (3.4-5.0); Sodium 135 mmol/L (137-145)
[2025-03-25 12:31] LABS: Erythrocyte Sedimentation Rate 33 mm/hr (0-20)
== END 2025-03-25 09:15 | disposition home or self-care (01) ==
PROVIDERS: PCP Family Medicine; Visit Provider Nurse Practitioner Family
DX: M79.89 Other specified soft tissue disorders (principal); M17.11 Unilateral primary osteoarthritis, right knee
CPT/HCPCS: 36415; 73564; 76882; 80053; 85027; 85652; 86140; 93971

== ENCOUNTER 2025-04-02 13:25 | Emergency (ER) | payer MEDICARE, SELFPAY ==
--- NOTE | ~2025-04-02 | XR_ITS ---
EXAMINATION: XR chest 2V 04/02/2025 14:26 INDICATION: Right rib cage pain PROCEDURE: 2 view chest COMPARISON: 03/18/2019 FINDINGS: The lungs are clear. The cardiomediastinal silhouette is within normal limits. There are no pleural effusions. There is no pneumothorax suspected. IMPRESSION: 1: NO ACUTE CARDIOPULMONARY DISEASE. Reviewed, dictated and finalized at location A.
--- NOTE | ~2025-04-02 | US_ITS ---
EXAMINATION: US venous doppler LE RT DATE: 04/02/2025 14:23 INDICATION: Right lower limb swelling TECHNIQUE: Grayscale ultrasound images without and with compression and Doppler ultrasound images of the right lower extremity veins were obtained. COMPARISON: None. FINDINGS: The visualized portions of right common femoral vein, profunda (deep) femoral vein, femoral vein, pop liteal vein, peroneal trunk, posterior tibial veins, peroneal veins, gastrocnemius vein and greater s aphenous vein outflow are patent. Again seen is a complex fluid collection at the medial right upper calf which currently measures 8.1 x 3.7 x 2.1 cm. The patient now demonstrates a greater amount of an echoic fluid with decrease in amount of hypoechoic regions and development of thin curvilinear sports internship al septations. Appearance remains most consistent with an evolving hematoma. IMPRESSION: 1. No deep venous thrombosis in the right lower limb. 2. Greater degree of anechoic fluid within a now 8.1 x 3.7 x 2.1 cm complex fluid collection medial t o the right knee and proximal calf most consistent with an evolving hematoma. Differential would incl ude less likely ganglion cyst or abscess. Reviewed, dictated and finalized at location A. IMPRESSION: 1. No deep venous thrombosis in the right lower limb. 2. Greater degree of anechoic fluid within a now 8.1 x 3.7 x 2.1 cm complex flu id collection medial to the right knee and proximal calf most consistent with a n evolving hematoma. Differential would include less likely ganglion cyst or ab scess.
--- NOTE | ~2025-04-02 | CT_ITS ---
EXAMINATION: CT abd pelvis lumbar w con DATE: 04/02/2025 15:26 INDICATION: Left flank pain TECHNIQUE: Computed tomography (CT) of the abdomen, pelvis and lumbar spine was performed without int ravenous contrast. The dose-length product was 393.80 mGy-cm. Automated exposure control and iterative reconstruction technique were employed. COMPARISON: CT dated 09/26/2021 FINDINGS: Lung bases unremarkable. Heart size normal. No significant pleural or pericardial effusion. Gallbladder is present. Spleen, pancreas, adrenal glands and kidneys are unremarkable. Nonobstructiv e bowel gas pattern. There is enlarged. Uterine veins, consistent with pelvic congestion syndrome. Th ere is an enlarged right and left ovarian veins. Moderate colonic fecal loading. Healed right inferio r pubic ramus fracture. Healed right superior pubic ramus fracture. There is moderate osteoarthritis of the hips. There is a chronic superior endplate compression fracture of L1. There is disc narrowing at all lumbar levels. There is grade 1 degenerative spondylolisthesis at L4-5 secondary to facet hyp ertrophy. There is mild superior endplate compression deformity of T12, likely chronic. IMPRESSION: 1. Pelvic congestion syndrome. 2: Moderate-severe lumbar spondylosis. Chronic superior endplate compression fracture of L1 which has progressed since 09/26/2021. Mild superior endplate compression fracture of T12, likely chronic. Reviewed, dictated and finalized at location A. IMPRESSION: 1. Pelvic congestion syndrome. 2: Moderate-severe lumbar spondylosis. Chronic superior endplate compression fr acture of L1 which has progressed since 09/26/2021. Mild superior endplate comp ression fracture of T12, likely chronic.
[2025-04-02 13:27] VITALS: BP 172/91; PULSE 66; RESP 16; TEMP 36.4; O2SAT 99
--- NOTE | 2025-04-02 13:34 | ED_ITS ---
HPI - General Adult General Chief complaint: Unspecified <Marysol Garcia APRN - Last Filed: 04/02/25 13:36> Stated complaint: abd pain <Marysol Garcia APRN - Last Filed: 04/02/25 13:36> Time Seen by Provider: 04/02/25 13:30 <Marysol Garcia APRN - Last Filed: 04/02/25 13:36> Focused HPI: Patient is a 80-year-old female who presents to the ER with left flank pain and right lower extremity swelling. She reports her right lower extremity swelling started with a bug bite. 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 She reports most of her pain is in her left flank and radiates from her left hip up to her left shoulder. Patient reports the pain has been present for 2-3 days but became much worse this morning. She reports back in December she stumbled and landed on her left side, but her symptoms following the fall resolved within a day. Patient denies any urinary symptoms, recent fevers, abdominal pain, or numbness/tingling. 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 GENERAL: Well-appearing, well-nourished, and in no acute distress. HEAD: Normocephalic, atraumatic. CHEST: Clear to auscultation. ?No respiratory distress. HEART: Regular rate and rhythm.? NEURO: ?Alert and oriented x3. Patient screened in triage and initial orders placed.? ?Additional care and disposition to be based upon?diagnostic testing and treatment. <Marysol Garcia APRN - Last Filed: 04/02/25 13:36> History of Present Illness HPI narrative: I agree with the above HPI <Leon Bean MD - Last Filed: 04/02/25 21:11> Related Data Home medications: Home Medications ?Medication ?Instructions ?Recorded ?Confirmed ?Last Taken ?Type B-complex with vitamin C 1 tablet PO DAILY 12/03/19 03/25/25 Unknown History cholecalciferol (vitamin D3) 25 1,000 unit PO DAILY 12/03/19 03/25/25 Unknown History mcg (1,000 unit) tablet multivitamin 1 tablet PO DAILY 12/03/19 03/25/25 Unknown History rivaroxaban 20 mg tablet (Xarelto) 20 mg PO QPM 12/03/19 03/25/25 Unknown History calcium carbonate (Calcium 600) 600 mg PO BID 04/20/20 03/25/25 Unknown History metoprolol succinate 100 mg 50 mg PO DAILY 12/14/21 03/25/25 Unknown History tablet,extended release 24 hr flecainide 100 mg tablet 100 mg PO Q12H 06/20/22 03/25/25 Unknown History ascorbate calcium (vitamin C) 500 1 g PO DAILY 03/29/23 03/25/25 Unknown History mg tablet metronidazole 1 % topical cream 1 applic topical QHS 07/19/23 03/25/25 Unknown History triamcinolone acetonide 0.1 % 1 applic topical BID 07/19/23 03/25/25 Unknown History topical cream lisinopril 20 mg tablet 40 mg PO DAILY 02/12/24 03/25/25 Unknown History ciprofloxacin HCl 0.2 % ear drops 5 drp EACH EAR BID 02/18/25 03/25/25 Unknown History in a dropperette <Marysol Garcia APRN - Last Filed: 04/02/25 13:36> Allergies/adverse reactions: Allergies Allergy/AdvReac Type Severity Reaction Status Date / Time diltiazem Allergy Unknown rash Verified 04/02/25 14:31 hydrocodone Allergy Unknown unknown Verified 04/02/25 14:31 Penicillins Allergy Unknown Hives in Verified 04/02/25 14:31 mouth <Marysol Garcia APRN - Last Filed: 04/02/25 13:36> Review of Systems 2 Review of Systems: All systems reviewed & are unremarkable except as noted in HPI and below <Leon Bean MD - Last Filed: 04/02/25 21:11> [facility] Past Medical History Medical History: Medical History Cataract fragments in both eyes following surgery Adenocarcinoma Carpal tunnel syndrome of left wrist 07/2022 Fracture of ulnar styloid Central stenosis of spinal canal L1 vertebral fracture Hypertension Atrial fibrillation Thyroid nodule Osteoporosis Hyperthyroidism History of vaginal delivery x 2 <Marysol Garcia APRN - Last Filed: 04/02/25 13:36> Surgical History Surgical History: Surgical History History of carpal tunnel release 01/2023 H/O cardiac radiofrequency ablation 2021 [place] teeth removed <Marysol Garcia APRN - Last Filed: 04/02/25 13:36> Family History Family History: Family History Mother Patient's mother is Hypertension Father Patient's father is Diabetes mellitus Other Cancer Osteoporosis <Marysol Garcia APRN - Last Filed: 04/02/25 13:36> Social History Social History: Social History Smoking status: Never smoker Second hand tobacco smoke exposure: No Alcohol intake: current Drinks per week: 4 Alcohol use details: wine Substance use: never Substance use type: does not use Lack of Transportation: No Lack of Food: Never True Current Housing: I Have Housing Concerned About Future Housing: No Difficulty Paying Gas/Electric Bills: No Difficulty Paying for Meds: No Currently Unemployed: No Education: Master's Degree or Higher Difficulty w/ Childcare or Family Care: No <Marysol Garcia APRN - Last Filed: 04/02/25 13:36> Exam 2 Narrative: APPEARANCE: Well appearing, no pain, no distress, well-nourished. HEAD: normocephalic, atraumatic. EYES: PERRLA/EOMI, conjunctivae clear. NOSE: Normal no drainage EARS:TMS clear with good light reflex. THROAT: Pharynx clear, no exudate. NECK: Supple. No adenopathy, no masses. RESPIRATORY: Airway patent, respirations nonlabored. Clear to auscultation bilaterally, no rales, rhonchi, wheezing. CARDIOVASCULAR: Regular rate and rhythm without murmurs rubs or gallops. ABDOMINAL: Soft, nontender, nondistended, normal bowel sounds MUSCULOSKELETAL: Left CVA and left paraspinal tenderness to palpation NEURO: Alert. Cranial nerves II through XII intact. Grossly intact SKIN: Warm, dry. Normal Color <Leon Bean MD - Last Filed: 04/02/25 21:11> Course Vital Signs Vital signs: Vital Signs Temperature 97.6 F 04/02/25 13:27 Pulse Rate 66 04/02/25 13:27 Respiratory Rate 16 04/02/25 13:27 Blood Pressure 172/91 H 04/02/25 13:27 Pulse Oximetry 99 04/02/25 13:27 Oxygen Delivery Room Air 04/02/25 13:27 Temperature 97.9 F 04/02/25 14:27 Pulse Rate 54 L 04/02/25 18:03 Respiratory Rate 16 04/02/25 18:03 Blood Pressure 164/97 H 04/02/25 18:03 Pulse Oximetry 100 04/02/25 18:03 Oxygen Delivery Room Air 04/02/25 14:27 <Marysol Garcia APRN - Last Filed: 04/02/25 13:36> Vital Signs Temperature 97.6 F 04/02/25 13:27 Pulse Rate 66 04/02/25 13:27 Respiratory Rate 16 04/02/25 13:27 Blood Pressure 172/91 H 04/02/25 13:27 Pulse Oximetry 99 04/02/25 13:27 Oxygen Delivery Room Air 04/02/25 13:27 Temperature 97.9 F 04/02/25 14:27 Pulse Rate 54 L 04/02/25 18:03 Respiratory Rate 16 04/02/25 18:03 Blood Pressure 164/97 H 04/02/25 18:03 Pulse Oximetry 100 04/02/25 18:03 Oxygen Delivery Room Air 04/02/25 14:27 <Leon Bean MD - Last Filed: 04/02/25 21:11> Medical Decision Making MDM Narrative Medical decision making narrative: 80-year-old female present to the emergency department for evaluation for left flank pain. Patient is currently afebrile with no leukocytosis hemoglobin 13.2. Patient does take Xarelto for her AFib but patient is on flecainide and has not had AFib for approximately 3 years. Patient's urine was positive for some red blood cells but otherwise negative for infection. A chest x-ray shows no acute cardiopulmonary abnormality. Ultrasound does show as elevating DVT. She was advised to hold her Xarelto for 2 days. She was provided an Apolinar wrap for compression of the right lower extremity. Patient has old compression fractures of her T12-L1 vertebrae but patient denies that these are the cause of her pain. Patient was provided tramadol for pain control as long as cyclobenzaprine for muscle spasm. Patient was encouraged of close follow-up with primary care physician <Leon Bean MD - Last Filed: 04/02/25 21:11> Differential Diagnosis Differential Diagnosis: Ureteral calculi, hematuria, lumbar fracture, thoracic spine fracture, rib fracture, UTI <Leon Bean MD - Last Filed: 04/02/25 21:11> Vital Signs Vital Signs: Vital Signs Temperature 97.6 F 04/02/25 13:27 Pulse Rate 66 04/02/25 13:27 Respiratory Rate 16 04/02/25 13:27 Blood Pressure 172/91 H 04/02/25 13:27 Pulse Oximetry 99 04/02/25 13:27 Oxygen Delivery Room Air 04/02/25 13:27 Temperature 97.9 F 04/02/25 14:27 Pulse Rate 54 L 04/02/25 18:03 Respiratory Rate 16 04/02/25 18:03 Blood Pressure 164/97 H 04/02/25 18:03 Pulse Oximetry 100 04/02/25 18:03 Oxygen Delivery Room Air 04/02/25 14:27 <Marysol Garcia APRN - Last Filed: 04/02/25 13:36> Vital Signs Temperature 97.6 F 04/02/25 13:27 Pulse Rate 66 04/02/25 13:27 Respiratory Rate 16 04/02/25 13:27 Blood Pressure 172/91 H 04/02/25 13:27 Pulse Oximetry 99 04/02/25 13:27 Oxygen Delivery Room Air 04/02/25 13:27 Temperature 97.9 F 04/02/25 14:27 Pulse Rate 54 L 04/02/25 18:03 Respiratory Rate 16 04/02/25 18:03 Blood Pressure 164/97 H 04/02/25 18:03 Pulse Oximetry 100 04/02/25 18:03 Oxygen Delivery Room Air 04/02/25 14:27 <Leon Bean MD - Last Filed: 04/02/25 21:11> Lab Data Lab results reviewed: Yes I reviewed the patient's lab results. <Leon Bean MD - Last Filed: 04/02/25 21:11> Result diagrams: 04/02/25 14:38 04/02/25 14:38 <Marysol Garcia, TOLL BOOTH OPERATOR - Last Filed: 04/02/25 13:36> Labs: Lab Results 04/02/25 Range/Units 14:38 WBC 4.9 (4.5-10.0) K/mm3 RBC 4.33 (4.2-5.4) M/mm3 Hgb 13.2 (12.0-15.0) g/dL Hct 40.0 (37.0-47.0) % MCV 92.4 (80-100) fl MCH 30.5 (26-34) pg MCHC 33.0 (32-36) g/dl RDW 12.5 (11.5-14.5) % Plt Count 207 (150-375) k/mm3 MPV 8.6 (7.4-10.4) fl Immature Gran % (Auto) 0.2 (0-0.5) % Neut % (Auto) 67.3 (45.5-73.1) % Lymph % (Auto) 24.9 (18.3-44.2) % Duc[place]ne % (Auto) 7.2 (2.6-8.5) % Eos % (Auto) 0.2 (0-4.4) % Baso % (Auto) 0.2 (0.2-1.2) % Lymph # (Auto) 1.21 (0.9-3.2) K/mm3 [place]ne # (Auto) 0.4 (0.1-0.6) K/mm3 Eos # (Auto) 0.0 (0-0.3) K/mm3 Baso # (Auto) 0.0 (0.0-0.1) K/mm3 Abs Immat Gran (auto) 0.01 (0.00-0.031) K/mm3 Absolute Neuts (auto) 3.3 (1.3-6.7) K/mm3 Absolute Nucleated RBC 0.000 (0.0-0.012) K/mm3 Nucleated RBC % 0.0 (0.0-0.2) % Sodium 129 L (137-145) mmol/L Potassium 4.0 (3.4-5.0) mmol/L Chloride 94 L (98-107) mmol/L Carbon Dioxide 28 (22-30) mmol/L Anion Gap 7 (4-12) mmol/L BUN 17 (7-17) mg/dL Creatinine 0.57 L (0.7-1.0) mg/dL Estim Creat Clear Calc 63 ml/min Estimated GFR > 60 (59 - ) Glucose 122 H (65-110) mg/dL Calcium 9.2 (8.4-10.2) mg/dL Total Bilirubin 0.4 (0.2-1.3) mg/dL AST 31 (14-36) U/L ALT 22 (6-35) U/L Alkaline Phosphatase 83 (38-126) U/L Total Protein 7.3 (6.3-8.2) g/dL Albumin 4.1 (3.5-5.1) g/dL Urine Color Yellow (Yellow) Urine Appearance Cloudy H (Clear) Urine pH 7.5 (5.0-9.0) Ur Specific Jessie 1.016 (1.001-1.035) Urine Protein Negative (Negative) mg/dL Urine Glucose (UA) Negative (Negative) mg/dL Urine Ketones Negative (Negative) mg/dL Ur Blood (Man) Negative (Negative) Urine Nitrate Negative (Negative) Urine Bilirubin Negative (Negative) Urine Urobilinogen 0.2 (<2.0) mg/dL Leukocyte Esterase Rfl Trace H (Negative) ALMA/UL Urine RBC 3-5 H (0-2) /hpf Urine WBC 0-5 (0-3) /hpf Ur Squamous Epith Cells None seen (Few) /hpf Urine Bacteria None seen /hpf Urine Casts 0-2 <Marysol Garcia, TOLL BOOTH OPERATOR - Last Filed: 04/02/25 13:36> Lab Results 04/02/25 Range/Units 14:38 WBC 4.9 (4.5-10.0) K/mm3 RBC 4.33 (4.2-5.4) M/mm3 Hgb 13.2 (12.0-15.0) g/dL Hct 40.0 (37.0-47.0) % MCV 92.4 (80-100) fl MCH 30.5 (26-34) pg MCHC 33.0 (32-36) g/dl RDW 12.5 (11.5-14.5) % Plt Count 207 (150-375) k/mm3 MPV 8.6 (7.4-10.4) fl Immature Gran % (Auto) 0.2 (0-0.5) % Neut % (Auto) 67.3 (45.5-73.1) % Lymph % (Auto) 24.9 (18.3-44.2) % [place] % (Auto) 7.2 (2.6-8.5) % Eos % (Auto) 0.2 (0-4.4) % Baso % (Auto) 0.2 (0.2-1.2) % Lymph # (Auto) 1.21 (0.9-3.2) K/mm3 [place] # (Auto) 0.4 (0.1-0.6) K/mm3 Eos # (Auto) 0.0 (0-0.3) K/mm3 Baso # (Auto) 0.0 (0.0-0.1) K/mm3 Abs Immat Gran (auto) 0.01 (0.00-0.031) K/mm3 Absolute Neuts (auto) 3.3 (1.3-6.7) K/mm3 Absolute Nucleated RBC 0.000 (0.0-0.012) K/mm3 Nucleated RBC % 0.0 (0.0-0.2) % Sodium 129 L (137-145) mmol/L Potassium 4.0 (3.4-5.0) mmol/L Chloride 94 L (98-107) mmol/L Carbon Dioxide 28 (22-30) mmol/L Anion Gap 7 (4-12) mmol/L BUN 17 (7-17) mg/dL Creatinine 0.57 L (0.7-1.0) mg/dL Estim Creat Clear Calc 63 ml/min Estimated GFR > 60 (59 - ) Glucose 122 H (65-110) mg/dL Calcium 9.2 (8.4-10.2) mg/dL Total Bilirubin 0.4 (0.2-1.3) mg/dL AST 31 (14-36) U/L ALT 22 (6-35) U/L Alkaline Phosphatase 83 (38-126) U/L Total Protein 7.3 (6.3-8.2) g/dL Albumin 4.1 (3.5-5.1) g/dL Urine Color Yellow (Yellow) Urine Appearance Cloudy H (Clear) Urine pH 7.5 (5.0-9.0) Ur Specific Jessie 1.016 (1.001-1.035) Urine Protein Negative (Negative) mg/dL Urine Glucose (UA) Negative (Negative) mg/dL Urine Ketones Negative (Negative) mg/dL Ur Blood (Man) Negative (Negative) Urine Nitrate Negative (Negative) Urine Bilirubin Negative (Negative) Urine Urobilinogen 0.2 (<2.0) mg/dL Leukocyte Esterase Rfl Trace H (Negative) ALMA/UL Urine RBC 3-5 H (0-2) /hpf Urine WBC 0-5 (0-3) /hpf Ur Squamous Epith Cells None seen (Few) /hpf Urine Bacteria None seen /hpf Urine Casts 0-2 <Leon Bean MD - Last Filed: 04/02/25 21:11> Imaging Data Radiologist's impression: Impressions Venous Doppler Study 04/02/25 14:24 IMPRESSION: 1. No deep venous thrombosis in the right lower limb. 2. Greater degree of anechoic fluid within a now 8.1 x 3.7 x 2.1 cm complex fluid collection medial to the right knee and proximal calf most consistent with an evolving hematoma. Differential would include less likely ganglion cyst or abscess. Chest X-Ray 04/02/25 14:28 IMPRESSION: 1: NO ACUTE CARDIOPULMONARY DISEASE. Miscellaneous CT Procedure 04/02/25 15:48 IMPRESSION: 1. Pelvic congestion syndrome. 2: Moderate-severe lumbar spondylosis. Chronic superior endplate compression fracture of L1 which has progressed since 09/26/2021. Mild superior endplate compression fracture of T12, likely chronic. <Leon Bean MD - Last Filed: 04/02/25 21:11> Discharge Plan Discharge Clinical Impression: Back pain, Hematoma, Hematuria <Marysol Garcia APRN - Last Filed: 04/02/25 13:36> Patient Disposition: Home <Marysol Garcia APRN - Last Filed: 04/02/25 13:36> Condition: Stable <Marysol Garcia APRN - Last Filed: 04/02/25 13:36> Instructions: Antibiotic Form <Marysol Garcia APRN - Last Filed: 04/02/25 13:36> Additional Instructions: Follow-up for pain control. Flexeril for muscle spasm. Apolinar wrap for compression of the right lower extremity. Hold your Xarelto for the next 2 days. Have close follow-up with your primary care physician for re-evaluation for your back pain, your hematuria and your lower extremity hematoma <Marysol Garcia APRN - Last Filed: 04/02/25 13:36> Patient Language: Peruvian <Marysol Garcia APRN - Last Filed: 04/02/25 13:36> Prescriptions: New tramadol 50 mg tablet 50 mg PO Q12H PRN (Reason: pain) Qty: 14 0RF cyclobenzaprine 10 mg tablet 10 mg PO BID PRN (Reason: muscle spasm) Qty: 14 0RF No Action B-complex with vitamin C Tablet 1 tablet PO DAILY Xarelto 20 mg tablet 20 mg PO QPM Rx Instructions: must administer with evening meal multivitamin Tablet 1 tablet PO DAILY cholecalciferol (vitamin D3) 25 mcg (1,000 unit) tablet 1,000 unit PO DAILY ascorbate calcium (vitamin C) 500 mg tablet 1 g PO DAILY calcium carbonate [Calcium 600] 600 mg calcium (1,500 mg) tablet 600 mg PO BID metoprolol succinate 100 mg tablet extended release 24 hr 50 mg PO DAILY flecainide 100 mg tablet 100 mg PO Q12H Rx Instructions: BID triamcinolone acetonide 0.1 % cream 1 applic topical BID metronidazole 1 % cream 1 applic topical QHS lisinopril 20 mg tablet 40 mg PO DAILY ciprofloxacin HCl 0.2 % dropperette 5 drp EACH EAR BID methimazole 5 mg tablet 5 mg PO .COMPLEX Qty: 90 3RF Rx Instructions: 5 mg orally; 5 days a week <Marysol Garcia APRN - Last Filed: 04/02/25 13:36> Follow-up/Referrals: Geo Hernandez MD [Primary Care Provider] - <Marysol Garcia APRN - Last Filed: 04/02/25 13:36>
--- OUTSIDE RECORDS SUMMARY | 2025-04-02 14:03 | XMS_ITS | Encounter Summary ---
Author Organization [facility] Address [address] [place] [address] Phone Care Team Providers Care Construction Pit Worker Name Role Phone Josue Draper MD Primary Care Provider [phone] Genevieve Sanchez MD Unavailable [phone] Chi Valdivia DO Primary Care Provider [phone] Kristen You MD Primary Care Provider [phone] Geo Hernandez MD Primary Care Provider [phone] Pedro Pablo Akers MD Unavailable Cora Bell MD PhD Unavailable [phone] Benoit Blanton MD Unavailable Romel Louie MD Unavailable [phone] Sasha MAS MD PhD, Santi Archuleta Unavailable [...] on file Legal Sex Female 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 Gender Identity Female 05/14/2019 9:25 AM CDT [...] on filedocumented in this encounter Care Teams Construction Pit Worker Relationship Specialty Start Date End Date Josue Draper MD [address] [facility] [address] [place] [address] PCP - General Internal Medicine 10/06/19 06/14/22 Chi Valdivia DO [address] [place] [address] PCP - General Internal Medicine 06/15/22 12/26/22 Kristen You MD [address] [place] [address] PCP - General Internal Medicine 12/27/22 05/02/23 Geo Hernandez MD [address] [place] [address] PCP - General Family Practice 05/03/23 Genevieve Sanchez MD [address] [place] [address] Consulting Physician Endocrinology 07/12/20 Pedro Pablo Akers MD [address] [place] [address] Referring Physician Dermatology 05/03/23 Cora Bell MD PhD [address] [facility] [address] [place] [address] Medical Oncologist/Before School Medical Oncology 05/07/23 Benoit Blanton MD [address] [place] [address] Consulting Physician Medical Oncology 08/15/23 08/31/24 Romel Louie MD [address] [place] [address] Medical Oncologist/Before School Medical Oncology 08/15/23 Santi Baez III, MD PhD [address] [place] [address] Radiation Oncologist Radiation Oncology 01/08/24 documented as of this encounter
--- OUTSIDE RECORDS SUMMARY | 2025-04-02 14:03 | XMS_ITS | Data Portability ---
Author Organization [place] [facility], Main Office Address [address] [place] [address] Care Team Providers Care Fisher Trawl Net Name Role Phone ANTONINO GUILLAUME Primary Care Provider Assessment No assessment recorded. Plan of Treatment Reminders Order Date Submit Date Provider Last Modified By Organization Details Last Modified Time Details Appointments None recorded. Lab None recorded. Referral None recorded. Procedures cerumen removal (PROC) 2023 024 [email or web address] Not available 15:44:11 Surgeries None recorded. Imaging CT, temporal bone, w/o contrast 2024 025 [email or web address] Not available 5 15:16:53 Medication Orders Ciprodex 0.3 %-0.1 % ear drops,susp ension 2024 025 [id number], [address] [facility], [place], [place], [id number], 5 15:16:58 Patient TargetsNo targets recorded. Patient Instructions Encounter Date Encounter Id Patient Instructions Last Modified By Organization Details Last Modified Time 09/03/2024 [id number] Discussed use of Debrox weekly for cerumen management. [email or web address] Not available 09/03/2024 15:23:09 02/17/2025 [id number] Prescribed Ciprodex for left Eustachian tube dysfunction. Ordered a CT of her temporal bones to rule out a possible cholesteatoma noted upon examination. We will follow up when the results become available. Not available 02/17/2025 15:17:17 Reason for Referral None Reported. Problems Name Problem SNOMED Code Status Onset Date Resolution Date Notes Provider Name and Address Organization Details Recorded Time Impacted cerumen in left ear 9422689561502 101 Active 2023 RADHA RiveraP [address] [facility], [address], [place], [address] , [facility] 4 12:03:36 Sensorineur al hearing loss 19541467 Active 2024 Yani Henao RN null, [facility] 5 14:56:37 Asymmetrica l sensorineur al hearing loss 651123941 Active 2024 Yani Henao RN null, [facility] 5 14:57:48 Dysfunction of left eustachian tube 2000322931134 106 Active 2024 Ashley Parra null, [facility] 5 15:48:49 Problem Notes None recorded. Procedures Surgical History Date Name Laterality Status Provider Name and Address Organization Details Recorded Time tonsillectomy completed Yani leal RN [facility] 08/28/2024 11:37:02 Imaging Results None recorded. Procedure Notes None recorded. Medical Equipment None Reported. Allergies Allergen ID Allergen Name Allergen Category Reaction Reaction Severity Criticality Documentation Date Start Date Code Code System Note Provider Name and Address Organization Details Recorded Time 44772 Product containin g penicilli n (product) medicatio n Not available Not available Not available 08/28/2024 92791 8001 SNOMED Yani Henao RN null, [facility] 4 11:36:04 Medications Name Sig Start Date Stop Date Status Note LastModified by Organization Details LastModified Time doxycycline hyclate 100 mg capsule TAKE 1 CAPSULE BY MOUTH TWICE DAILY BEFORE MEALS FOR 10 DAYS active Not Available Not Available No t Available metoprolol succinate ER 50 mg tablet,exte nded release 24 hr active Not Available Not Available Not Available lisinopril 20 mg tablet 08/28 completed Not Available Not Available Not Available prednisone 20 mg tablet TAKE 2 TABLETS BY MOUTH DAILY FOR 5 DAYS 08/28 completed Not Available Not Available Not Available amlodipine 2.5 mg tablet 08/28 completed Not Available Not Available Not Available Vitamin C 1,000 mg tablet Take by oral route. active Not Available Not Available No t Available triamcinolo ne acetonide 0.1 % topical ointment APPLY THIN LAYER TO THE AFFECTED AREA ON THE LEG TWICE DAILY NEEDED active Not Available Not Available No t Available flecainide 100 mg tablet active Not Available Not Available Not Available methimazole 5 mg tablet TAKE 1 TABLET BY MOUTH 5 DAYS A WEEK active Not Available Not Available No t Available hydrocortis one 2.5 % topical cream APPLY TOPICALLY TO THE AFFECTED AREA OF FACE TWICE DAILY 08/28 completed Not Available Not Available Not Available methylpredn isolone 4 mg tablets in a dose pack FOLLOW PACKAGE DIRECTION S active Not Available Not Available No t Available lisinopril 40 mg tablet active Not Available Not Available Not Available ciprofloxac in 0.3 %-dexametha sone 0.1 % ear drops,suspe nsion INSTILL 4 DROPS IN LEFT EAR TWICE DAILY X 7 DAYS active Not Available Not Available No t Available metronidazo le 1 % topical gel APPLY TOPICALLY TO FACE EVERY NIGHT AT BEDTIME active Not Available Not Available No t Available calcium active Not Available Not Avail able Not Available B Complex active Not Available Not Deisy ilable Not Available Vitamin D active Not Available Not Deisy ilable Not Available Zyrtec active PRN Not Available Not Availa ble Not Available multivitami n active Not Available Not Available Not Available Xarelto 20 mg tablet active Not Available Not Available No t Available Vitals Date Recorded Body height Body mass index (BMI) Body weight Body temperature Provider Name and Address Organization Details Last Updated DateTime 02/17/2025 172.72 cm 23.1 kg/m2 13993.04 g 97.7 [degF] Yani Henao RN [facility] 02/17/2025 14:41:32 Date Recorded Body height Body mass index (BMI) Body weight Provider Name and Address Organization Details Last Updated DateTime 08/28/2024 172.72 cm 22.9 kg/m2 36630.29 g Yani Henao RN [facility] 08/28/2024 11:34:07 Date Recorded Body height Body mass index (BMI) Body weight Body temperature Provider Name and Address Organization Details Last Updated DateTime 09/03/2024 172.72 cm 22.8 kg/m2 89428.86 g 98 [degF] Yani Henao RN [place] [facility] 09/03/2024 14:41:28 Social History None recorded. Functional Status Question Answer Note LastModified by Organizat ion Details LastModified Time What is your level of alcohol consumption? Occasional [email or web address] Information not available 08/28/2024 Mental Status None recorded. Family History Relationship Description Onset Age of this Age Resolved Age Notes LastModified by Organization Details LastModified Time Father No current problems or disability [email or web address] Not available 08/28 11:36:38 Mother No current problems or disability [email or web address] Not available 08/28 11:36:38 Medical History Condition Response ENT Y ATRIAL FIBRILLATION Y Gynecological HistoryNo gynecological history recorded. Obstetrics History GPAL:G 0 P 0 0 0 0 Past Encounters Encounter ID Performer Location Encounter Start Date Encounter Closed Date Diagnosis/Indication Diagnosis SNOMED-CT Code Diagnosis ICD10 Code Diagnosis Note [id number] Price [facility] [place] [address] [place] [address] 08/28/2024 11:21:29 08/28/2024 12:05:10 Impacted cerumen in left ear 8303633274 918911 H61.22 several attempts made at removing cerumen to the left ear with lavage and a curette device. Patient notes that she still has Debrox at home and will use Debrox twice a day and returned to the office in one-week for cerumen removal. [id number] Price Miranda MD [facility] [place] [address] [place] [address] 09/03/2024 14:13:09 09/03/2024 15:24:52 Impacted cerumen in left ear 0120178428 138119 H61.22 After several attempts made of cerumen lavage and use of a curette device, Dr. Miranda assisted in successful removal of cerumen impaction of the left ear with irrigation , curette, and alligator forceps. [id number] Price [facility] [place] [address] [place] [address] 02/17/2025 14:34:19 02/17/2025 15:20:04 Dysfunction of left eustachian tube 4243980125 784554 H69.92 Health Concerns Section Related Observation LastModified by Organization Detai ls LastModified Time None Recorded Concern Status LastModified by Organization Details LastModified Time None Recorded Advance Directives Directive None Recorded Payers Encounter Date Sequence Insurance Name Policy Number Policy Portillo Covered Member ID Portillo Member ID Guarantor Name 08/28/2024 1 [employer] [id number] Mariana Milton Kaykay [id number] Mariana Mccracken 09/03/2024 1 [employer] [id number] Mariana Milton Kaykay [id number] Mariana Mccracken 02/17/2025 1 [employer] (MEDICARE REPLACEMENT/ ADVANTAGE - PPO) [id number] Mariana Kaykay [id number] Mariana Mccracken Notes Date Note Type Note Provider Name and Address Organization Details Recorded Time 08/28/2024 text/html This patient has a past medical history significant for atrial fibrillation and adenocarcinoma s/p radiation. She presents to the office with a complaint of a clogged left ear onset approximately 3 weeks ago. She does note that last August in 2022 she did have a ruptured eardrum on that affected side. She states that she was using Debrox approximately one-week ago without any relief. She does have a history with sinus problems all her life and states that she takes Zyrtec daily. She notes that she gets a PET scan every 3 months from adenocarcinoma. She states that she has finished radiation in December of 2023 and notes that her next PET scan is this coming Sunday. MICAELA Rivera [address], [place], [address], [facility] 08/28/2024 12:04:25 09/03/2024 text/html This patient presents for a one-week follow-up for left ear cerumen impaction removal. She has been using Debrox as advised for cerumen softening. MICAELA Rivera [address], [address], [place], [address], [facility] 09/03/2024 15:23:13 02/17/2025 text/html This patient presents to the office for ear congestion that began 1.5 weeks ago . At the beginning of January she had flown to [place] and notes that her hears became clogged due to pressure. Shortly thereafter her symptoms had resolved up until 1.5 weeks ago. She notes that she was using cerumen removal drops daily. She does report some mild otalgia and feeling off-balance. She denies any hearing changes. She notes a history with skin cancer and radiation treatments to her left side of her forehead that she has completed. She notes that since then, she has developed difficulties with her left ear. Yani Rhoades, [employer] [address] [facility] [facility] [address], [place], [address], [place] [facility] 02/17/2025 15:17:21 OBGyn Episode No OBEpisode recorded.
--- OUTSIDE RECORDS SUMMARY | 2025-04-02 14:03 | XMS_ITS | Continuity of Care Document ---
Author Organization [facility] Address [address] [place] [address] Phone Care Team Providers Care Line Ordering Clinician Name Role Phone [facility] Unavailable Unavail able Dana Oconnor Unavailable Unavailable Procedures Procedure Date Vision Svcs Frames Purchases Progressive Lens, Plastic Lens-Index 1.54-1.79 Glass Anti-reflective Coating Specialty Occup MultiFocal Lens,Per Lens Advance Directives Directive Yes / No Effective Date File Name No Information Encounters Encounter Description Practice Location Reason(s) For Visit Diagnoses Date Provider Providers Copied on Encounter [facility], [address], [place], [place], [id number], [place] tel:[phone] [facility] No Information [address] [facility] [address] [facility], [facility] [address], [place], [place], [address] , [place]. tel:[phone] Referring Provider: Yossi Jaquez MD, [address] [facility] [address], [place], [address]. tel:[phone] g Provider: Dana Oconnor, [address] [place], [address]. tel:[phone] Family History Family Member Type Diagnosis Age At Onset No Information Payers Payer name Insurance type Covered libertarian ID Authoriza tion(s) [facility] Plan CI [id number] Social History Type Description Quantity Date Captured [...]
--- OUTSIDE RECORDS SUMMARY | 2025-04-02 14:03 | XMS_ITS | Referral Summary ---
Author Organization [facility] [address] [facility] [address] Address [address] [place] [address] Care Team Providers Care Marble Setter Name Role Phone Genevieve Sanchez MD Unavailable [phone] Geo Hernandez MD Primary Care Provider [phone] Pedro Pablo Akers MD Unavailable Cora Bell MD PhD Unavailable Romel Louie MD Unavailable [phone] Sasha MAS MD PhD, Santi Archuleta Unavailable Encounters Date Type Department Care Team Description 03/16/2025 9:00 AM CDT Telemedicine [facility] Radiation Oncology [address] [facility] [place] [address] Radha Tompkins PA Primary eccrine carcinoma of skin (Primary Dx) 01/22/2025 9:30 AM CDT Office Visit [facility] [address] [place] [address] Cecile Stallings NP PAF (paroxysmal atrial fibrillation) (HCC) (Primary Dx); [facility] current use of 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 drug; Medication monitoring encounter; Chronic anticoagulation; Essential hypertension from Last 3 Months Allergies Active Allergy [...] mg total) by mouth Take Sunday through Sunday05/14/20 20 Active cetirizine (ZyrTEC) 10 mg tablet Take 1 tablet (10 mg total) by mouth as needed for allergies Active triamcinolone (KENALOG) 0.1 % ointment Apply topically as needed 04/17/20 23 Active Xarelto 20 mg tablet Take 1 tablet (20 mg total) by mouth daily 90 tablet 3 07/01/20 24 Active flecainide (TAMBOCOR) 100 mg tablet TAKE 1 TABLET(100 MG) BY MOUTH TWICE DAILY 180 tablet 1 12/25/19 25 Active lisinopriL (PRINIVIL,ZESTRI L) 40 mg tabletIndication s:Essential hypertension Take 1 tablet (40 mg total) by mouth daily 90 tablet 3 12/30/19 25 025 Active ciprofloxacin-de xAMETHasone (CIPRODEX) otic suspension INSTILL 4 DROPS IN LEFT EAR TWICE DAILY X 7 DAYS 02/18/20 25 Active doxycycline hyclate 100 mg capsule TAKE 1 CAPSULE BY MOUTH TWICE DAILY BEFORE MEALS FOR 10 DAYS 03/02/20 25 Active methylPREDNISolo ne (MEDROL DOSEPACK) 4 mg Dosepack FOLLOW PACKAGE DIRECTIONS 03/02/20 25 Active metoprolol XL (TOPROL-XL) 50 mg extended release tabletIndication s:PAF (paroxysmal atrial fibrillation) (HCC),Essential hypertension TAKE 1 TABLET(50 MG) BY MOUTH DAILY 90 tablet 03/27/20 25 Active metoprolol XL (TOPROL-XL) 50 mg extended release tabletIndication s:PAF (paroxysmal atrial fibrillation) (HCC),Essential hypertension Take 1 tablet (50 mg total) by mouth daily 90 tablet 12/25/19 25 025 Discontinued Active Problems Problem Noted Date Diagnosed Date [...] JE, Taylor SARY, Yulisa PT, Huma ZENG, Field CHRISTOPHER, Mike KT, Tara RL, Kurtis WG, Micah PJ, Daly CM, Clementina CW. 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 Gender Identity Female 05/14/2019 9:25 AM CDT Sexual Orientation Not on file Last Filed Vital Signs Vital Sign Reading Time Taken Comments Blood Pressure 138/80 01/22/2025 9:40 AM CDT Pulse 61 01/22/2025 9:40 AM CDT Temperature 36.8 C (98.3 F) 12/29/2024 9:27 AM SUPERVISOR FARM EQUIPMENT MAINTENANCE Respiratory Rate 18 12/29/2024 9:27 AM SUPERVISOR FARM EQUIPMENT MAINTENANCE Oxygen Saturation 98% 01/22/2025 9:40 AM CDT Inhaled Oxygen Concentration - - Weight 68 kg (150 lb) 01/22/2025 9:40 AM CDT Height 167.6 cm (5' 6) 01/22/2025 9:40 AM CDT Body Mass Index 24.21 01/22/2025 9:40 AM CDT Plan of Treatment Scheduled Procedures Name Priority Associated Diagnoses Date/Ti me ESOPHAGOGASTRODUODENOSCOPY Carcinoma of unknown primary (HCC) Medical Devices Implanted Type Area Maintenance Technician Device Identifier Shelf Expiration Date Model / Serial / Lot [employer] [id number] Vascade 6/7fr Bioabsorbable Vascular System Compression Collagen - [id number] - [id number] Implanted:Qty: 1 on 03/16/2021 by Mesfin Han MD at [facility] Collagen [employer] 10/05/2022 [id number] / [id number] / [id number] [employer] [id number] System 6-12fr Mvp Venous Closure Vascade - [id number] - [id number] Implanted:Qty: 1 on 03/16/2021 by Mesfin Han MD at [facility] Collagen [employer] 01/13/2023 800-612C-1 0U / [id number] / [id number] [employer] [id number] System 6-12fr Mvp Venous Closure Vascade - [id number] - [id number] Implanted:Qty: 1 on 03/16/2021 by Mesfin Han MD at [facility] Collagen [employer] 01/13/2023 800-612C-1 0U / [id number] / [id number] [employer] [id number] System 6-12fr Mvp Venous Closure Vascade - [id number] - [id number] Implanted:Qty: 1 on 03/16/2021 by Mesfin Han MD at [facility] Collagen [employer] 01/13/2023 800-612C-1 0U / [id number] / [id number] Procedures Procedure Name Priority Date/Time Associated Diagnosis Comments ELECTROCARDIOGRAM REPORT Routine 025 3:44 PM CDT PAF (paroxysmal atrial fibrillation) (HCC) COLONOSCOPY 06/20/2023 12:46 PM CDT SCREENING MAMMOGRAM BILATERAL W ROBBIE Schedule Routine, Read Routine (OP Routine) 06/18/2023 11:45 AM CDT Adenocarcinoma of unknown primary (HCC) Encounter for screening mammogram for malignant neoplasm of breast from Last 3 Months or Most Recently Relevant to Health Maintenance Results * Electrocardiogram Report (01/22/2025 3:44 PM CDT) us Cecile Stallings TAX MANAGER ECG ORDERABLES Final Res ult * COLONOSCOPY (06/20/2023 12:46 PM CDT) Anatomical Region Laterality Modality Other Narrative Procedure Note Mora Ray MD PhD - 06/20/2023 12:46 PM CDT GI ENDOSCOPY [facility] Patient Name: Mariana Mccracken Procedure Date: 06/20/2023 12:46 PM Date of : 1945 Admit Type: Outpatient Age: 78 Gender: Female Attending MD: Mora Ray M.D. Room: [facility] ENDOSCOPY ROOM 4 Note Status: Addendum [...] scope was passed under direct vision.The CF [id number] endoscope was introduced through the anus and advanced to the cecum, identified by appendiceal orifice and ileocecal valve. The colonoscopy was performed without difficulty. The patient tolerated the procedure well. The qualityof the bowel preparation was evaluated using the BBPS ([place] Bowel Preparation Scale) with scores of:Right Colon [...] On: 06/20/2023 12:46 PM Recognized by the [place] [employer] for Gastrointestinal Endoscopy for promoting quality [...] Relevant to Health Maintenance Insurance [employer] MEDICARE [facility] MEDICARE [facility] MEDICARE Care Teams Marble Setter Relationship Specialty Start Date End Date Geo Hernandez MD [address] [place] [address] PCP - General Family Practice 05/03/23 Genevieve Sanchez MD [address] [place] [address] Consulting Physician Endocrinology 07/12/20 Pedro Pablo Akers MD [address] [place] [address] Referring Physician Dermatology 05/03/23 Cora Bell MD PhD [address] [place] [address] Medical Oncologist/Histologist Medical Oncology 05/07/23 Romel Louie MD [address] [place] [address] Medical Oncologist/Histologist Medical Oncology 08/15/23 Satni Baez III, MD PhD [address] [place] [address] Radiation Oncologist Radiation Oncology 01/08/24
--- OUTSIDE RECORDS SUMMARY | 2025-04-02 14:03 | XMS_ITS | Encounter Summary ---
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 Gender Identity Female 05/14/2019 9:25 AM [...] filedocumented in this encounter Care Teams Director Software Development Relationship Specialty Start Date End Date Geo Hernandez MD [address] [place], [place] [address] PCP - General Family Practice 05/03/23 Genevieve Sanchez MD [address] [place] [address] Consulting Physician Endocrinology 07/12/20 Pedro Pablo Akers MD [address] [place] [address] Referring Physician Dermatology 05/03/23 Cora Bell MD PhD [address] [facility] [place] [facility] [address] [place] [address] Medical Oncologist/Scrapper Medical Oncology 05/07/23 Fa'Benoit beltran MD [address] [place] [address] Consulting Physician Medical Oncology 08/15/23 08/31/24 Romel Louie MD [address] [place] [address] Medical Oncologist/Scrapper Medical Oncology 08/15/23 Santi Baez III, MD PhD [address] [place] [address] Radiation Oncologist Radiation Oncology 01/08/24 documented as of this encounter
--- OUTSIDE RECORDS SUMMARY | 2025-04-02 14:03 | XMS_ITS | Encounter Summary ---
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 Gender Identity Female 05/14/2019 9:25 AM CDT [...] on filedocumented in this encounter Care Teams Manager Transportation Planning Relationship Specialty Start Date End Date Geo Hernandez MD [address] [place], [place] [id number] PCP - General Family Practice 05/03/23 Genevieve Sanchez MD [address] [place] [address] Consulting Physician Endocrinology 07/12/20 Pedr oPablo Akers MD [address] [place] [address] Referring Physician Dermatology 05/03/23 Cora Bell MD PhD [address] [facility] [address] [place] [address] Medical Oncologist/Measurement Technician Medical Oncology 05/07/23 Benoit Blanton MD [address] [place] [address] Consulting Physician Medical Oncology 08/15/23 08/31/24 Romel Louie MD [address] [place] [address] Medical Oncologist/Measurement Technician Medical Oncology 08/15/23 Santi Baez III, MD PhD [address] [place] [address] Radiation Oncologist Radiation Oncology 01/08/24 documented as of this encounter
--- OUTSIDE RECORDS SUMMARY | 2025-04-02 14:03 | XMS_ITS | Encounter Summary ---
Author Organization [facility] Address [address] [place] [address] Phone Care Team Providers Care Crocodile Farmer Name Role Phone Genevieve Sanchez MD Unavailable [phone] Geo Hernandez MD Primary Care Provider [phone] Pedro Pablo Akers MD Unavailable Cora Bell MD PhD Unavailable Fa'Benoit beltran MD Unavailable Romel Louie MD Unavailable [phone] Sasha MAS MD PhD, Santi Archuleta Unavailable Encounter Details Date Type Department Care Team (Late st Contact Info) Description 09/14/2023 Orders Only [facility] Oncology [address] [facility] 7th [place] [address] [place] [address] Romel Louie MD [address] [facility] [address] [place] [address] Social History Tobacco Use Types Packs/Day Years [...] on file 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 Gender Identity Female 05/14/2019 9:25 AM CDT Sexual Orientation Not on file documented as of this encounter Plan of Treatment Scheduled Procedures Name Priority Associated Diagnoses Date/Ti me ESOPHAGOGASTRODUODENOSCOPY Carcinoma of unknown primary (HCC) documented as of this encounter Visit Diagnoses Not on filedocumented in this encounter Care Teams Crocodile Farmer Relationship Specialty Start Date End Date Geo Hernandez MD [address] [place], [place] [id number] PCP - General Family Practice 05/03/23 Genevieve Sanchez MD [address] [place] [address] Consulting Physician Endocrinology 07/12/20 Pedro Pablo Akers MD [address] [place] [address] Referring Physician Dermatology 05/03/23 Cora Bell MD PhD 49[address] [facility] [address] [place] [address] Medical Oncologist/Rn New Grad Medical Oncology 05/07/23 Benoit Blanton MD [address] [place] [address] Consulting Physician Medical Oncology 08/15/23 08/31/24 Romel Louie MD [address] [place] [address] Medical Oncologist/Rn New Grad Medical Oncology 08/15/23 Santi Baez III, MD PhD [address] [place] [address] Radiation Oncologist Radiation Oncology 01/08/24 documented as of this encounter
--- OUTSIDE RECORDS SUMMARY | 2025-04-02 14:03 | XMS_ITS | Encounter Summary ---
Author Organization [facility] Address [address] [place] [address] Phone Care Team Providers Care Legal Contracts Specialist Name Role Phone Josue Draper MD Primary Care Provider [phone] Genevieve Sanchez MD Unavailable [phone] Chi Valdivia DO Primary Care Provider [phone] Kristen You MD Primary Care Provider [phone] Geo Hernandez MD Primary Care Provider [phone] Pedro Pablo Akers MD Unavailable Cora Bell MD PhD Unavailable [phone] Benoit Blanton MD Unavailable Romel Louie MD Unavailable [phone] Sasha MAS MD PhD, Santi Archuleta Unavailable [...] on file 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 Gender Identity Female 05/14/2019 9:25 AM CDT [...] on filedocumented in this encounter Care Teams Legal Contracts Specialist Relationship Specialty Start Date End Date Josue Draper MD [address] [place], [place] [id number] PCP - General Internal Medicine 10/06/19 06/14/22 Chi Valdivia DO [address] [place], [place] [address] PCP - General Internal Medicine 06/15/22 12/26/22 Kristen You MD [address] [place] [address] PCP - General Internal Medicine 12/27/22 05/02/23 Geo Hernandez MD [address] [place], [place] [address] PCP - General Family Practice 05/03/23 Genevieve Sanchez MD [address] [place] [address] Consulting Physician Endocrinology 07/12/20 Pedro Pablo Akers MD [address] [place] [address] Referring Physician Dermatology 05/03/23 Cora Bell MD PhD 49[address] [facility] [address] [place] [address] Medical Oncologist/Charter Coordinator Medical Oncology 05/07/23 Benoit Blanton MD [address] [place] [address] Consulting Physician Medical Oncology 08/15/23 08/31/24 Romel Louie MD [address] [place] [address] Medical Oncologist/Charter Coordinator Medical Oncology 08/15/23 Santi Baez III, MD PhD [address] [place] [address] Radiation Oncologist Radiation Oncology 01/08/24 documented as of this encounter
--- OUTSIDE RECORDS SUMMARY | 2025-04-02 14:03 | XMS_ITS | Continuity of Care Document ---
Author Organization [facility] Address [address] [facility] [address] [place] [address] Phone Care Team Providers Care Devil Dog Name Role Phone Mariel Downey OD Unavailable [...] Providers Copied on Encounter [facility], [address] [place] [address], [place], [place], [id number], [place] tel:[phone] OPH CONSULT [facility] Post-Op (chief complaint) Presence of intraocular lens Dec-0 [address] [place] [address], [address], [place], [place], [id number], [place]. tel:[phone] Referring Provider: Geremias Gonzales, [address] [place] [address], [address] . tel:[phone] [facility], [address] [place] [address], [id number], [place] tel:[phone] [facility] No Information Dec-0 5 Radha Solorzano. [facility] [place], [id number], [place]. tel:[phone] Referring Provider: Geremias Gonzales, [address] [place] [address], [address] . tel:[phone] OFFICE/OUTPA TIENT VISIT, [facility] [[email or web address]] [facility], [address] [place] [address], [id number], [place] tel:[phone] OPH CONSULT [facility] Retinal drusen (chief complaint) Retinal drusen, bilateralTear film insufficiency of bilateral lacrimal glandsPresenc e of pseudophakiaH istory of therapeutic radiationOthe r secondary cataract, bilateral Nov- 5 Shayan Floyd. [address] [place] [address], [address], [place], [place], [id number], [place]. tel:[phone] Referring Provider: Geremias Gonzales, [address] [place] [address], [address] . tel:[phone] OFFICE/OUTPA TIENT VISIT, [facility], [address] [place] [address], [id number], [place] tel:[phone] OPH CONSULT [facility] pseudophakia (chief complaint) Retinal drusen, bilateralHist ory of therapeutic radiationPres ence of pseudophakiaT ear film insufficiency of bilateral lacrimal glands Apr-0 4 Shayan Floyd. [address] [facility], [address], [place], [place], [id number], [place]. tel:[phone] Referring Provider: Geremias Gonzales, [address] [facility], [place], [address] . tel:[phone] OFFICE/OUTPA TIENT VISIT, [facility], [address], [place], [place], [id number], tel:[phone] [facility] blurry vision (chief complaint)irr itation (chief complaint) Age-related nuclear cataract, bilateralChal azion left upper eyelid No Information Referring Provider: Yossi Lambert MD, [address] [place] [address] [address], [place], [address]. tel:[phone] Family History Family Member Type Diagnosis Age At Onset Problem No family history of Glaucom a Father Problem Diabetes mellitus Problem No family history of Macular degeneration Payers Payer name Insurance type Covered libertarian ID Authoriza tion(s) No Information Social History [...]
--- OUTSIDE RECORDS SUMMARY | 2025-04-02 14:03 | XMS_ITS | Clinical Summary ---
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 I have therefore recommended that she remain anticoagulated for thromboprophylaxis. 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; Medication monitoring encounter; Chronic anticoagulation; Essential hypertension from Last 3 Months Immunizations Immunization Administration [...] file 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 Gender Identity Female 05/14/2019 9:25 AM CDT [...] 36.8 C (98.3 F) 12/29/2024 9:27 AM CHIEF WHARFINGER Respiratory Rate 18 12/29/2024 9:27 AM CHIEF WHARFINGER Oxygen Saturation 98% 01/22/2025 9:40 AM CDT [...] exists Fall Risk Assessment 11/05/2024 11/05/2023, 06/20/20 Influenza Vaccine (Season Ended) 2025 08/08/2023, 08/01/2022, 07/25/2021, Additional history exists Zoster Vaccine Completed 02/23/2022, 12/20/2021 Breast Cancer Screening-Mammogram Discontinued 023 Colon Cancer Screening-CT Colonography Discontinued 06/20/2023 Colon Cancer Screening-Colonoscopy Discontinued 06/20/2023 Colon Cancer Screening-DNA Stool Discontinued 06/20/20 23 Colon Cancer Screening-FIT Discontinued 06/20/2023 Colon Cancer Screening-FOBT Discontinued 06/20/2023 Colon Cancer Screening-Sigmoidoscopy Discontinued 06/20/2023 Colorectal Cancer Screening Discontinued Medical Devices Implanted Type Area Windows Administrator Device Identifier Shelf Expiration Date Model / Serial / Lot [employer] [id number] Vascade 6/7fr Bioabsorbable Vascular System Compression Collagen - [id number] - [id number] Implanted:Qty: 1 on 03/16/2021 by Mesfin Han MD at [facility] Collagen [employer] 10/05/2022 [id number] 5U / [id number] / [id number] [employer] [id number] System 6-12fr Mvp Venous Closure Vascade - [id number] - [id number] Implanted:Qty: 1 on 03/16/2021 by Mesfin Han MD at [facility] [employer] 01/13/2023 800-612C-1 0U / [id number] / [id number] [employer] [id number] System 6-12fr Mvp Venous Closure Vascade - [id number] - [id number] Implanted:Qty: 1 on 03/16/2021 by Mesfin Han MD at [facility] [employer] 01/13/2023 800-612C-1 0U / [id number] / [id number] [employer] [id number] System 6-12fr Mvp Venous Closure Vascade - [id number] - [id number] Implanted:Qty: 1 on 03/16/2021 by Mesfin Han MD at [facility] Collagen [employer] 01/13/2023 800-612C-1 0U / [id number] / [id number] Procedures Procedure Name Priority Date/Time Associated [...] Report (01/22/2025 3:44 PM CDT) Cecile Stallings SUPERVISOR HEAT TREATING ECG ORDERABLES Final Res ult * COLONOSCOPY (06/20/2023 12:46 PM CDT) Anatomical Region Laterality Modality Other Narrative Procedure Note Mora Ray MD PhD - 06/20/2023 12:46 PM CDT [facility] ENDOSCOPY [facility] Patient Name: Mariana Mccracken Procedure Date: 06/20/2023 12:46 PM Date of : 1945 Admit Type: Outpatient Age: 78 Gender: Female Attending MD: Mora Ray M.D. Room: [facility] ENDOSCOPY ROOM 4 Note Status: Addendum Procedure: [...] scope was passed under direct vision.The CF [id number] endoscope was introduced through the anus and advanced to the cecum, identified by appendiceal orifice and ileocecal valve. The colonoscopy was performed without difficulty. The patient tolerated the procedure well. The qualityof the bowel preparation was evaluated using the BBPS (Clemmons Bowel Preparation Scale) with scores of:Right Colon [...] On: 06/20/2023 12:46 PM Recognized by the [place] Society for Gastrointestinal Endoscopy for promoting quality in endoscopy Addendum Number: 1 Addendum Date: 06/20/2023 1:47:59 PM Restart rivaroxaban tomorrow. Electronically signed by Mora Ray MD Mora Ray M.D. 06/20/2023 1:48:52 PM . oMra Ray MD PhD ENDOSCOPY PROCEDURES Edited Res ult - Final * Screening Mammogram Bilateral W Robbie (06/18/2023 11:45 AM CDT) Anatomical Region Laterality Modality Breast Bilateral Mammography 06/27/2023 2:4 4 PM CDT Impressions 06/27/2023 2:44 PM CDT [...] Relevant to Health Maintenance Insurance [employer]ET[employer] MEDICARE [facility] MEDICARE [facility] MEDIC[facility] Care Teams Blue Line Operator Relationship Specialty Start Date End Date Geo Hernandez MD [address] [place] [id number] PCP - General Family Practice 05/03/23 Genevieve Sanchez MD [address] [place] [id number] Consulting Physician Endocrinology 07/12/20 Pedro Pablo Akers MD [address] [place] [address] Referring Physician Dermatology 05/03/23 Cora Bell MD PhD [address] [facility] [address] [place] [address] Medical Oncologist/Ditcher Medical Oncology 05/07/23 Romel Louie MD [address] [facility] [address] [place] [address] Medical Oncologist/Ditcher Medical Oncology 08/15/23 Santi Baez III, MD PhD [address] [facility] [address] [place] [address] Radiation Oncologist Radiation Oncology 01/08/24
--- OUTSIDE RECORDS SUMMARY | 2025-04-02 14:03 | XMS_ITS ---
Author Organization [facility] [address] Address [address] [place] [address] Care Team Providers Care Electric Installer Name Role Phone Genevieve Sanchez MD Unavailable [phone] Geo Hernandez MD Primary Care Provider [phone] Pedro Pablo Akers MD Unavailable Cora Bell MD PhD Unavailable Romel Louie MD Unavailable [phone] Sasha MAS MD PhD, Santi Archuleta Unavailable Active Problems Problem Noted Date Diagnosed Date Primary eccrine carcinoma of skin 06/01/2023 Cancer Staging:Clinical stage from 08/27/2023:Stage I(cT1, cN0, cM0) - Signed by Santi Baez III, MD PhD on 12/06/2023 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 I have therefore recommended that she remain anticoagulated for thromboprophylaxis. Borderline high blood pressure 12/10/2019 08/09/2021
--- OUTSIDE RECORDS SUMMARY | 2025-04-02 14:03 | XMS_ITS | Encounter Summary ---
Author Organization [facility] Address [address] [place] [address] Phone Care Team Providers Care Repair Service Dispatcher Name Role Phone Genevieve Sanchez MD Unavailable [phone] Chi Valdivia DO Primary Care Provider [phone] Kristen You MD Primary Care Provider [phone] Geo Hernandez MD Primary Care Provider [phone] Pedro Pablo Akers MD Unavailable Cora Bell MD PhD Unavailable [phone] Benoit Blanton MD Unavailable Romel Louie MD Unavailable [phone] Sasha MAS MD PhD, Santi Archuleta Unavailable [...] on file 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 Gender Identity Female 05/14/2019 9:25 AM CDT [...] on filedocumented in this encounter Care Teams Repair Service Dispatcher Relationship Specialty Start Date End Date Chi Valdivia DO [address] [place] [address] PCP - General Internal Medicine 06/15/22 12/26/22 Kristen You MD [address] [place] [address] PCP - General Internal Medicine 12/27/22 05/02/23 Geo Hernandez MD [address] [place] [address] PCP - General Family Practice 05/03/23 Genevieve Sanchez MD [address] [place] [address] Consulting Physician Endocrinology 07/12/20 Pedro Pablo Akers MD [address] [facility] [address] [address] Referring Physician Dermatology 05/03/23 Cora Bell MD PhD [address] [facility] [address] [place] [address] Medical Oncologist/Stove Tender Medical Oncology 05/07/23 Benoit Blanton MD [address] [place] [address] Consulting Physician Medical Oncology 08/15/23 08/31/24 Romel Louie MD [address] [place] [address] Medical Oncologist/Stove Tender Medical Oncology 08/15/23 Santi Baez III, MD PhD [address] [place] [address] Radiation Oncologist Radiation Oncology 01/08/24 documented as of this encounter
--- OUTSIDE RECORDS SUMMARY | 2025-04-02 14:03 | XMS_ITS | Clinical Summary ---
Author Organization [facility] Address [address] [facility] [place] [address] Care Team Providers Care Vending Route Servicer Name Role Phone Boston Aldrich MD Primary Care Provider [phone] Source Comments [facility],non-owned Affiliates and Associated Physician Practices is amultiple site organization consisting of ambulatory clinics and hospital sitesin [place], [place], [place] and [place]. This disclosure is being madepursuant to the Care Everywhere program and may not contain all information available regarding this patient. Last updated 18.[facility] Allergies Active Allergy Reactions Criticality Noted Date [...] patient's age to complete this topic Insurance [facility] [place] [address] Care Teams Vending Route Servicer Relationship Specialty Start Date End Date Boston Aldrich MD [address] [place] [address] PCP - General Family Medicine 02/06/19
--- NOTE | 2025-04-02 14:11 | PC.NURSE ---
attempted to draw blood on patient, ultrasound at bedside at this time.
[2025-04-02 14:27] VITALS: BP 173/75; PULSE 65; RESP 14; TEMP 36.6; O2SAT 100
[2025-04-02 14:46] LABS: Basophils Percent Auto 0.2 % (0.2-1.2); Eosinophils Percent Auto 0.2 % (0-4.4); Hemoglobin 13.2 g/dL (12.0-15.0); Immature Granulocyte Absolute 0.01 K/mm3 (0.00-0.031); Immature Granulocyte Percent A 0.2 % (0-0.5); Lymphocytes Absolute Auto 1.21 K/mm3 (0.9-3.2); Lymphocytes Percent Auto 24.9 % (18.3-44.2); Mean Corpuscular Hemoglobin 30.5 pg (26-34); Mean Corpuscular Volume 92.4 fl (80-100); Mean Platelet Volume 8.6 fl (7.4-10.4); Monocytes Absolute Auto 0.4 K/mm3 (0.1-0.6); Monocytes Percent Auto 7.2 % (2.6-8.5); Neutrophils Absolute Auto 3.3 K/mm3 (1.3-6.7); Neutrophils Percent Auto 67.3 % (45.5-73.1); Platelet Count Result 207 k/mm3 (150-375); Red Blood Count 4.33 M/mm3 (4.2-5.4); Red Cell Distribution Width 12.5 % (11.5-14.5); White Blood Count 4.9 K/mm3 (4.5-10.0)
[2025-04-02 14:58] LABS: Alanine Aminotransferase 22 U/L (6-35); Albumin Level 4.1 g/dL (3.5-5.1); Alkaline Phosphatase 83 U/L (38-126); Anion Gap 7 mmol/L (4-12); Aspartate Amino Transferase 31 U/L (14-36); Bilirubin,Total 0.4 mg/dL (0.2-1.3); Blood Urea Nitrogen 17 mg/dL (7-17); Calcium 9.2 mg/dL (8.4-10.2); Carbon Dioxide 28 mmol/L (22-30); Chloride 94 mmol/L (98-107); Estimated CRCL calculation 63 ml/min; Estimated Glomerular Filt Rate > 60; Glucose 122 mg/dL (65-110); Sodium 129 mmol/L (137-145); Total Protein 7.3 g/dL (6.3-8.2)
[2025-04-02] MEDS: fentaNYL CITRATE INJ (*CRX) 100 MCG/2 ML VIAL 50 MCG IV PUSH (15:07)
[2025-04-02 15:12] VITALS: BP 163/74; PULSE 56; RESP 15; O2SAT 100
--- OUTSIDE RECORDS SUMMARY | 2025-04-02 15:20 | XMS_ITS | Encounter Summary ---
Author Organization [facility] Address [address] [place] [address] Phone Care Team Providers Care Power Electronics Research Engineer Name Role Phone Josue Draper MD Primary Care Provider [phone] Genevieve Sanchez MD Unavailable [phone] Chi Valdivia DO Primary Care Provider [phone] Kristen You MD Primary Care Provider [phone] Geo Hernandez MD Primary Care Provider [phone] Pedro Pablo Akers MD Unavailable Cora Bell MD PhD Unavailable [phone] Benoit Blanton MD Unavailable Romel Louie MD Unavailable [phone] Sasha MAS MD PhD, Santi Archuleta Unavailable [...] on file 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 Gender Identity Female 05/14/2019 9:25 AM CDT [...] on filedocumented in this encounter Care Teams Power Electronics Research Engineer Relationship Specialty Start Date End Date Josue Draper MD [address] [facility] 1 [place] [address] PCP - General Internal Medicine 10/06/19 06/14/22 Chi Valdivia DO [address] [place] [address] PCP - General Internal Medicine 06/15/22 12/26/22 Kristen You MD [address] [place] [address] PCP - General Internal Medicine 12/27/22 05/02/23 Geo Hernandez MD [address] [place] [address] PCP - General Family Practice 05/03/23 Genevieve Sanchez MD [address] [place] [address] Consulting Physician Endocrinology 07/12/20 Pedro Pablo Akers MD [address] [place] [address] Referring Physician Dermatology 05/03/23 Cora Bell MD PhD 49[address] [facility] [address] [place] [address] Medical Oncologist/Insecticide Mixer Medical Oncology 05/07/23 Benoit Blanton MD [address] [place] [address] Consulting Physician Medical Oncology 08/15/23 08/31/24 Romel Louie MD [address] [place] [address] Medical Oncologist/Insecticide Mixer Medical Oncology 08/15/23 Santi Baez III, MD PhD [address] [place] [address] Radiation Oncologist Radiation Oncology 01/08/24 documented as of this encounter
--- OUTSIDE RECORDS SUMMARY | 2025-04-02 15:21 | XMS_ITS | Encounter Summary ---
Author Organization [facility] Address [address] [place] [address] Phone Care Team Providers Care Grating Machine Operator Name Role Phone Josue Draper MD Primary Care Provider [phone] Genevieve Sanhcez MD Unavailable [phone] Chi Valdivia DO Primary Care Provider [phone] Kristen You MD Primary Care Provider [phone] Geo Hernandez MD Primary Care Provider [phone] Pedro Pablo Akers MD Unavailable Cora Bell MD PhD Unavailable [phone] Benoit Blanton MD Unavailable Romel Louie MD Unavailable [phone] Sasha MAS MD PhD, Santi Archuleta Unavailable [...] on file 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 Gender Identity Female 05/14/2019 9:25 AM CDT [...] on filedocumented in this encounter Care Teams Grating Machine Operator Relationship Specialty Start Date End Date Josue Draper MD [address] [place], [place] [address] PCP - General Internal Medicine 10/06/19 06/14/22 Chi Valdivia DO [address] [place], [place] [address] PCP - General Internal Medicine 06/15/22 12/26/22 Kristen You MD [address] [place] [address] PCP - General Internal Medicine 12/27/22 05/02/23 Geo Hernandez MD [address] [place], [place] [address] PCP - General Family Practice 05/03/23 Genevieve Sanchez MD [address] [place] [address] Consulting Physician Endocrinology 07/12/20 Pedro Pablo Akers MD [address] [place] [address] Referring Physician Dermatology 05/03/23 Cora Bell MD PhD 49[address] [facility] [address] [place] [address] Medical Oncologist/Stockfeed Miller Medical Oncology 05/07/23 Benoit Blanton MD [address] [place] [address] Consulting Physician Medical Oncology 08/15/23 08/31/24 Romel Louie MD [address] [place] [address] Medical Oncologist/Stockfeed Miller Medical Oncology 08/15/23 Santi Baez III, MD PhD [address] [place] [address] Radiation Oncologist Radiation Oncology 01/08/24 documented as of this encounter
--- OUTSIDE RECORDS SUMMARY | 2025-04-02 15:21 | XMS_ITS | Encounter Summary ---
Author Organization [facility] Address [address] [place] [address] Phone Care Team Providers Care Electrician Maintenance Name Role Phone Genevieve Sanchez MD Unavailable [phone] Geo Hernandez MD Primary Care Provider [phone] Pedro Pablo Akers MD Unavailable Cora Bell MD PhD Unavailable Fa'Benoit beltran MD Unavailable Romel Louie MD Unavailable [phone] Sasha MAS MD PhD, Santi Archuleta Unavailable Encounter Details Date Type Department Care Team (Late st Contact Info) Description 09/14/[address] 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 Gender Identity Female 05/14/2019 9:25 AM CDT Sexual Orientation Not on file documented as of this encounter Plan of Treatment Scheduled Procedures Name Priority Associated Diagnoses Date/Ti me ESOPHAGOGASTRODUODENOSCOPY Carcinoma of unknown primary (HCC) documented as of this encounter Visit Diagnoses Not on filedocumented in this encounter Care Teams Electrician Maintenance Relationship Specialty Start Date End Date Geo Hernandez MD [address] [place], [place] [id number] PCP - General Family Practice 05/03/23 Genevieve Sanchez MD [address] [place] [address] Consulting Physician Endocrinology 07/12/20 Pedro Pablo Akers MD [address] [place] [address] Referring Physician Dermatology 05/03/23 Cora Bell MD PhD [address] [facility] [address] [place] [address] Medical Oncologist/Mason Foreman/Superintendant Medical Oncology 05/07/23 Benoit Blanton MD [address] [place] [address] Consulting Physician Medical Oncology 08/15/23 08/31/24 Romel Louie MD [address] [place] [address] Medical Oncologist/Mason Foreman/Superintendant Medical Oncology 08/15/23 Santi Baez III, MD PhD [address] [place] [address] Radiation Oncologist Radiation Oncology 01/08/24 documented as of this encounter
--- OUTSIDE RECORDS SUMMARY | 2025-04-02 15:21 | XMS_ITS | Encounter Summary ---
Author Organization [facility] Address [address] [place] [address] Phone Care Team Providers Care Mohs Surgeon/General Dermatologist Name Role Phone Genevieve Sanchez MD Unavailable [phone] Chi Valdivia DO Primary Care Provider [phone] Kristen You MD Primary Care Provider [phone] Geo Hernandez MD Primary Care Provider [phone] Pedro Pablo Akers MD Unavailable Cora Bell MD PhD Unavailable [phone] Benoit Blanton MD Unavailable Romel Louie MD Unavailable [phone] Sasha MAS MD PhD, Santi Archuleta Unavailable [...] on file 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 Gender Identity Female 05/14/2019 9:25 AM [...] on filedocumented in this encounter Care Teams Mohs Surgeon/General Dermatologist Relationship Specialty Start Date End Date Chi Valdivia DO [address] [place] [address] PCP - General Internal Medicine 06/15/22 12/26/22 Kristen You MD [address] [place] [address] PCP - General Internal Medicine 12/27/22 05/02/23 Geo Hernandez MD [address] [place] [address] PCP - General Family Practice 05/03/23 Genevieve Sanchez MD [address] [place] [address] Consulting Physician Endocrinology 07/12/20 Pedro Pablo Akers MD 930 [facility] [address] [address] Referring Physician Dermatology 05/03/23 Cora Bell MD PhD 49[address] [facility] [address] [place] [address] Medical Oncologist/Director Of Assessment Medical Oncology 05/07/23 Benoit Blanton MD [address] [place] [address] Consulting Physician Medical Oncology 08/15/23 08/31/24 Romel Louie MD [address] [place] [address] Medical Oncologist/Director Of Assessment Medical Oncology 08/15/23 Santi Baez III, MD PhD [address] [place] [address] Radiation Oncologist Radiation Oncology 01/08/24 documented as of this encounter
--- OUTSIDE RECORDS SUMMARY | 2025-04-02 15:21 | XMS_ITS | Continuity of Care Document ---
Author Organization [email or web address] Address [address] [facility] [address] [place] [address] Phone Care Team Providers Care Match Maker Name Role Phone Mariel Downey OD Unavailable [...] Providers Copied on Encounter [facility], [address] [place] [address], [place], [place], [id number], [place] tel:[phone] OPH CONSULT [facility] Post-Op (chief complaint) Presence of intraocular lens Dec-0 [address] [place] [address], [address], [place], [place], [id number], [place]. tel:[phone] Referring Provider: Geremias Gonzales, [address] [place] [address], [address] . tel:[phone] [facility], [address] [place] [address], [id number], [place] tel:[phone] [facility] No Information Dec-0 5 Radha Solorzano. [facility]3 [place], [id number], [place]. tel:[phone] Referring Provider: Geremias Gonzales, [address] [place] [address], [address] . tel:[phone] OFFICE/OUTPA TIENT VISIT, [facility], [address] [place] [address], [id number], [place] tel:[phone] OPH CONSULT [facility] Retinal drusen (chief complaint) Retinal drusen, bilateralTear film insufficiency of bilateral lacrimal glandsPresenc e of pseudophakiaH istory of therapeutic radiationOthe r secondary cataract, bilateral Nov- 5 Shayan Floyd. [address] [place] [address], [address], [place], [place], [address], [place]. tel:[phone] Referring Provider: Geremias Gonzales, [address] [place] [address], [address] . tel:[phone] OFFICE/OUTPA TIENT VISIT, [facility], [address] [place] [address], [id number], [place] tel:[phone] OPH CONSULT [facility] pseudophakia (chief complaint) Retinal drusen, bilateralHist ory of therapeutic radiationPres ence of pseudophakiaT ear film insufficiency of bilateral lacrimal glands Apr-0 4 Shayan Floyd. [address] [facility], [address], [place], [place], [address], [place]. tel:[phone] Referring Provider: Geremias Gonzales, [address] [facility], [place], [address] . tel:[phone] OFFICE/OUTPA TIENT VISIT, [facility], [address], [place], [place], [id number], tel:[phone] [facility] blurry vision (chief complaint)irr itation (chief complaint) Age-related nuclear cataract, bilateralChal azion left upper eyelid No Information Referring Provider: Yossi Lambert MD, [address] [place] [address] [address], [place], [address]. tel:[phone] Family History Family Member Type Diagnosis Age At Onset Problem No family history of Glaucom a Father Problem Diabetes mellitus Problem No family history of Macular degeneration Payers Payer name Insurance type Covered democrat ID Authoriza tion(s) No Information Social History [...]
--- OUTSIDE RECORDS SUMMARY | 2025-04-02 15:21 | XMS_ITS | Continuity of Care Document ---
Author Organization [facility] Address [address] [place] [address] Phone Care Team Providers Care Scales Inspector Name Role Phone [facility] Unavailable Unavail able Dana Oconnor Unavailable Unavailable Procedures Procedure Date Vision Svcs Frames Purchases Progressive Lens, Plastic Lens-Index 1.54-1.79 Glass Anti-reflective Coating Specialty Occup MultiFocal Lens,Per Lens Advance Directives Directive Yes / No Effective Date File Name No Information Encounters Encounter Description Practice Location Reason(s) For Visit Diagnoses Date Provider Providers Copied on Encounter [facility], [address], [place], [place], [id number], [place] tel:[phone] [facility] No Information [address] [facility] [facility], [facility] [address], [place], [place], [id number] , [place]. tel:[phone] Referring Provider: Yossi Jaquez MD, [address] [facility] [address], [place], [address]. tel:[phone] g Provider: Dana Oconnor, [address] [place], [address]. tel:[phone] Family History Family Member Type Diagnosis Age At Onset No Information Payers Payer name Insurance type Covered alliance party ID Authoriza tion(s) [employer] [facility] Plan [place] [id number] Social History Type Description Quantity Date Captured [...]
--- OUTSIDE RECORDS SUMMARY | 2025-04-02 15:21 | XMS_ITS | Encounter Summary ---
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 Gender Identity Female 05/14/2019 9:25 AM CDT [...] on filedocumented in this encounter Care Teams Program Counselor Relationship Specialty Start Date End Date Geo Hernandez MD [address] [place], [place] [address] PCP - General Family Practice 05/03/23 Genevieve Sanchez MD [address] [place] [address] Consulting Physician Endocrinology 07/12/20 Pedro Pablo Akers MD [address] [place] [address] Referring Physician Dermatology 05/03/23 Cora Bell MD PhD 49[address] [facility] [address] [place] [address] Medical Oncologist/Clinical Laboratory Manager Medical Oncology 05/07/23 Benoit Blanton MD [address] [place] [address] Consulting Physician Medical Oncology 08/15/23 08/31/24 Romel Louie MD [address] [place] [address] Medical Oncologist/Clinical Laboratory Manager Medical Oncology 08/15/23 Santi Baez III, MD PhD [address] [place] [address] Radiation Oncologist Radiation Oncology 01/08/24 documented as of this encounter
--- OUTSIDE RECORDS SUMMARY | 2025-04-02 15:21 | XMS_ITS | Clinical Summary ---
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 I have therefore recommended that she remain anticoagulated for thromboprophylaxis. Borderline high blood pressure 12/10/2019 08/09/2021 Encounters Date Type Department Care Team Description 03/16/2025 9:00 AM CDT Telemedicine 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 Collagen [employer] 10/05/2022 [id number] 5U / [id number] / [id number] [employer] [id number] System 6-12fr Mvp Venous Closure Vascade - [id number] - [id number] Implanted:Qty: 1 on 03/16/2021 by Mesfin Han MD at [facility] Collagen [employer] 01/13/2023 800-612C-1 0U / [id number] [id number] / [id number] [employer] [id number] System 6-12fr Mvp Venous Closure Vascade - [id number] - [id number] Implanted:Qty: 1 on 03/16/2021 by Mesfin Han MD at [facility] Collagen [employer] 01/13/2023 800-612C-1 0U / [id number] [id number] / [id number] [employer] [id number] System 6-12fr Mvp Venous Closure Vascade - [id number] - [id number] Implanted:Qty: 1 on 03/16/2021 by Mesfin Han MD at [facility] Collagen [employer] 01/13/2023 800-612C-1 0U / [id number] [id number] / [id number] Procedures Procedure Name Priority Date/Time Associated [...] Report (01/22/2025 3:44 PM CDT) Cecile Stallings LEAD ATHLETE ECG ORDERABLES Final Res ult * COLONOSCOPY (06/20/2023 12:46 PM CDT) Anatomical Region Laterality Modality Other Narrative Procedure Note Mora Ray MD PhD - 06/20/2023 12:46 PM CDT GI ENDOSCOPY [facility] Patient Name: Mariana Mccracken Procedure Date: 06/20/2023 12:46 PM Date of : 1945 Admit Type: Outpatient Age: 78 Gender: Female Attending MD: Mora Ray M.D. Room: [facility] ENDOSCOPY ROOM 4 Note Status: Addendum Procedure: [...] scope was passed under direct vision.The CF [id number] endoscope was introduced through the anus and advanced to the cecum, identified by appendiceal orifice and ileocecal valve. The colonoscopy was performed without difficulty. The patient tolerated the procedure well. The qualityof the bowel preparation was evaluated using the BBPS ([place] Bowel Preparation Scale) with scores of:Right Colon [...] On: 06/20/2023 12:46 PM Recognized by the [place] Society for Gastrointestinal Endoscopy for promoting quality in endoscopy Addendum Number: 1 Addendum Date: 06/20/2023 1:47:59 PM Restart rivaroxaban tomorrow. Electronically signed by Mora Ray MD Mora Ray M.D. 06/20/2023 1:48:52 PM . Mora Ray MD PhD ENDOSCOPY PROCEDURES Edited [...] Relevant to Health Maintenance Insurance [employer] MEDICARE [facility]LY [facility] MEDICARE [facility] MEDICARE Care Teams Reconciling Clerk Relationship Specialty Start Date End Date Geo Hernandez MD [address] [place] [address] PCP - General Family Practice 05/03/23 Genevieve Sanchez MD [address] [place] [address] Consulting Physician Endocrinology 07/12/20 Pedro Pablo Akers MD [address] [place] [address] Referring Physician Dermatology 05/03/23 Cora Bell MD PhD [address] [facility] [address] [place] [address] Medical Oncologist/Carroting Machine Offbearer Medical Oncology 05/07/23 Romel Louie MD [address] [facility] [address] [place] [address] Medical Oncologist/Carroting Machine Offbearer Medical Oncology 08/15/23 Santi Baez III, MD PhD [address] [facility] [address] [place] [address] Radiation Oncologist Radiation Oncology 01/08/24
--- OUTSIDE RECORDS SUMMARY | 2025-04-02 15:21 | XMS_ITS | Encounter Summary ---
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 Gender Identity Female 05/14/2019 9:25 AM [...] on filedocumented in this encounter Care Teams Regional Loss Prevention Manager Relationship Specialty Start Date End Date Geo Hernandez MD [address] [place], [place] [address] PCP - General Family Practice 05/03/23 Genevieve Sanchez MD [address] [place] [address] Consulting Physician Endocrinology 07/12/20 Pedro Pablo Akers MD [address] [place] [address] Referring Physician Dermatology 05/03/23 Cora Bell MD PhD [address] [facility] [address] [place] [address] Medical Oncologist/Psychiatric Aide Medical Oncology 05/07/23 Fa'Benoit beltran MD [address] [place] [address] Consulting Physician Medical Oncology 08/15/23 08/31/24 Romel Louie MD [address] [place] [address] Medical Oncologist/Psychiatric Aide Medical Oncology 08/15/23 Santi Baez III, MD PhD [address] [place] [address] Radiation Oncologist Radiation Oncology 01/08/24 documented as of this encounter
--- OUTSIDE RECORDS SUMMARY | 2025-04-02 15:21 | XMS_ITS | Clinical Summary ---
Author Organization [facility] Address [address] [place] [address] Care Team Providers Care Char Filter Operator Helper Name Role Phone Boston Aldrich MD Primary Care Provider [phone] Source Comments [facility],non-owned Affiliates and Associated Physician Practices is amultiple site organization consisting of ambulatory clinics and hospital sitesin [place], [place], [place] and [place]. This disclosure is being madepursuant to the Care Everywhere program and may not contain all information available regarding this patient. Last updated 18.[facility] Allergies Active Allergy Reactions Criticality Noted Date [...] patient's age to complete this topic Insurance [facility] MANAGED MEDICARE ADV Care Teams Char Filter Operator Helper Relationship Specialty Start Date End Date Boston Aldrich MD [address] [place] [address] PCP - General Family Medicine 02/06/19
--- OUTSIDE RECORDS SUMMARY | 2025-04-02 15:21 | XMS_ITS ---
Author Organization [facility] [address] Address [address] [place] [address] Care Team Providers Care Cake Maker Name Role Phone Genevieve Sanchez MD Unavailable [phone] Geo Hernandez MD Primary Care Provider [phone] Pedro Pablo Akers MD Unavailable Cora Bell MD PhD Unavailable [phone] Romel Louie MD Unavailable [phone] Sasha MAS MD PhD, Santi Archuleta Unavailable Active Problems Problem Noted Date Diagnosed Date Primary eccrine carcinoma of skin 06/01/2023 Cancer Staging:Clinical stage from 08/27/2023:Stage I(cT1, cN0, cM0) - Signed by Santi Baez III, MD PhD on 12/06/2023 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 From: October, Antonoi LS, Makayla JS, Nuno H, Yuan ABILIO, Javi JE, Taylor SARY, Yulisa PT, Huma ZENG, [place], Mike KT, Tara RL, Kurtis WG, Micah PJ, Daly CM, Clementina CW. 2014 AHA/ACC/HRS guideline for the management of patients with atrial fibrillation: a report of the [place] College of Cardiology/[place] Heart Association Task Force on Practice Guidelines [...] 4:30 PM CDT): The patient has a [id number] score of 3 (annualized risk of stroke 3%). I have therefore recommended that she remain anticoagulated for thromboprophylaxis. Borderline high blood pressure 12/10/2019 08/09/2021
--- OUTSIDE RECORDS SUMMARY | 2025-04-02 15:21 | XMS_ITS | Referral Summary ---
Author Organization [facility] [address] [facility] [address] Address [address] [place] [address] Care Team Providers Care Finish Inspector Name Role Phone Genevieve Sanchez MD Unavailable [phone] Geo Hernandez MD Primary Care Provider [phone] Pedro Pablo Akers MD Unavailable Cora Bell MD PhD Unavailable [phone] Romel Louie MD Unavailable [phone] Sasha MAS MD PhD, Santi Archuleta Unavailable Encounters Date Type Department Care Team Description 03/16/2025 9:00 AM CDT Telemedicine [facility] Radiation Oncology [address] [facility] [place] [address] Radha Tompkins PA Primary eccrine carcinoma of skin (Primary Dx) 01/22/2025 9:30 AM CDT Office Visit [facility] [address] [place] [address] Cecile Stallings NP PAF (paroxysmal atrial fibrillation) (HCC) (Primary Dx); 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 current use of 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 drug; Medication monitoring [...] PhD on 12/06/2023 Medication monitoring encounter 02/14/2022 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 current use of 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 drug Syncope and [...] with atrial fibrillation: a report of the [place] College of Cardiology/Swedish Heart Association Task Force on Practice Guidelines [...] 4:30 PM CDT): The patient has a [id number] score of 3 (annualized risk of stroke [...] on file 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 Gender Identity Female 05/14/2019 9:25 AM CDT Sexual Orientation Not on file Last Filed Vital Signs Vital Sign Reading Time Taken Comments Blood Pressure 138/80 01/22/2025 9:40 AM CDT Pulse 61 01/22/2025 9:40 AM CDT Temperature 36.8 C (98.3 F) 12/29/2024 9:27 AM SERVICE ENGINEER Respiratory Rate 18 12/29/2024 9:27 AM SERVICE ENGINEER Oxygen Saturation 98% 01/22/2025 9:40 AM CDT Inhaled Oxygen Concentration - - Weight 68 kg (150 lb) 01/22/2025 9:40 AM CDT Height 167.6 cm (5' 6) 01/22/2025 9:40 AM CDT Body Mass Index 24.21 01/22/2025 9:40 AM CDT Plan of Treatment Scheduled Procedures Name Priority Associated Diagnoses Date/Ti me ESOPHAGOGASTRODUODENOSCOPY Carcinoma of unknown primary (HCC) Medical Devices Implanted Type Area Aquatics Instructor Device Identifier Shelf Expiration Date Model / Serial / Lot [employer] [id number] Vascade 6/7fr Bioabsorbable Vascular System Compression Collagen - [id number] - [id number] Implanted:Qty: 1 on 03/16/2021 by Mesfin Han MD at [facility] Collagen [employer] 10/05/2022 [id number] [id number] / [id number] / [id number] [employer] [id number] System 6-12fr Mvp Venous Closure Vascade - [id number] - [id number] Implanted:Qty: 1 on 03/16/2021 by Mesfin Han MD at [facility] Collagen [employer] 01/13/2023 800-612C-1 0U / [id number] / [id number] [employer] [id number] System 6-12fr Mvp Venous Closure Vascade - [id number] - [id number] Implanted:Qty: 1 on 03/16/2021 by Mesfin Han MD at [facility] Collagen [employer] 01/13/2023 800-612C-1 0U / [id number] / [id number] [employer] [id number] System 6-12fr Mvp Venous Closure Vascade - [id number] - [id number] Implanted:Qty: 1 on 03/16/2021 by Mesfin Han MD at [facility] Collagen [employer] 01/13/2023 800-612C-1 0U / [id number] / [id number] Procedures Procedure Name Priority Date/Time Associated [...] (01/22/2025 3:44 PM CDT) us Cecile Stallings AMERICAN HISTORY TEACHER ECG ORDERABLES Final Res ult * COLONOSCOPY (06/20/2023 12:46 PM CDT) Anatomical Region Laterality Modality Other Narrative Procedure Note Mora Ray MD PhD - 06/20/2023 12:46 PM CDT [facility] Patient Name: Mariana Mccracken Procedure Date: 06/20/2023 12:46 PM Date of : 1945 Admit Type: Outpatient Age: 78 Gender: Female Attending MD: Mora Ray M.D. Room: [facility] 4 Note Status: Addendum Procedure: [...] scope was passed under direct vision.The CF [id number] endoscope was introduced through the anus and advanced to the cecum, identified by appendiceal orifice and ileocecal valve. The colonoscopy was performed without difficulty. The patient tolerated the procedure well. The qualityof the bowel preparation was evaluated using the BBPS ([place] Bowel Preparation Scale) with scores of:Right Colon [...] On: 06/20/2023 12:46 PM Recognized by the [place] Society for Gastrointestinal Endoscopy for promoting quality [...] to Health Maintenance Insurance [employer] MEDICARE FORMERLY [facility] MEDICARE FORMERLY [facility] MEDICARE Care Teams Finish Inspector Relationship Specialty Start Date End Date Geo Hernandez MD [address] [place] [address] PCP - General Family Practice 05/03/23 Genevieve Sanchez MD [address] [place] [address] Consulting Physician Endocrinology 07/12/20 Pedro Pablo Akers MD [address] [place] [address] Referring Physician Dermatology 05/03/23 Cora Bell MD PhD [address] [place] [address] Medical Oncologist/School Plant Consultant Medical Oncology 05/07/23 Romel Louie MD [address] [place] [address] Medical Oncologist/School Plant Consultant Medical Oncology 08/15/23 Santi Baez III, MD PhD [address] [place] [address] Radiation Oncologist Radiation Oncology 01/08/24
[2025-04-02 15:37] LABS: Add Urine Microscopic? YES; Appearance Urine Cloudy (Clear); Bacteria Urine None Seen /hpf; Bilirubin Urine Negative (Negative); Blood Urine Negative (Negative); Color Urine Yellow (Yellow); Glucose Urine UA Negative (Negative); Ketones Urine Negative (Negative); Leukocyte Esterase Ur Trace LEU/UL (Negative); Nitrate Urine Negative (Negative); Non Pathogenic Casts 0-2; Protein Urine Negative (Negative); Specific Grav Ur 1.016 (1.001-1.035); Squamous Epithelial Cell Urine None Seen /hpf (Few); Urobilinogen Urine 0.2 mg/dL (<2.0); WBC Urine 0-5 /hpf (0-3); pH Urine 7.5 (5.0-9.0)
[2025-04-02 16:01] VITALS: BP 172/70; PULSE 54; RESP 14; O2SAT 97
[2025-04-02] MEDS: traMADol HCL (*CRX) 50 MG TABLET PO (17:29)
[2025-04-02] MEDS: CYCLOBENZAPRINE HCL 10 MG TABLET PO (17:29)
[2025-04-02 18:03] VITALS: BP 164/97; PULSE 54; RESP 16; O2SAT 100
== END 2025-04-02 18:11 | disposition home or self-care (01) ==
PROVIDERS: Registered Nurse; Emergency Provider Emergency Medicine; PCP Family Medicine
DX: S80.01XA Contusion of right knee, initial encounter (principal); M54.9 Dorsalgia, unspecified; R31.9 Hematuria, unspecified; I48.91 Unspecified atrial fibrillation; Z85.828 Personal history of other malignant neoplasm of skin; H59.023 Cataract (lens) fragments in eye following cataract surgery, bilateral; I10 Essential (primary) hypertension; M81.0 Age-related osteoporosis without current pathological fracture; Z79.01 Long term (current) use of anticoagulants; Z79.899 Other long term (current) drug therapy; N94.89 Other specified conditions associated with female genital organs and menstrual cycle; M47.816 Spondylosis without myelopathy or radiculopathy, lumbar region; M48.56XA Collapsed vertebra, not elsewhere classified, lumbar region, initial encounter for fracture; W57.XXXA Bitten or stung by nonvenomous insect and other nonvenomous arthropods, initial encounter
CPT/HCPCS: 36415; 71046; 72132; 74177; 80053; 81001; 85025; 93971; 96374; 99284; A9270; J3010; Q9967

== ENCOUNTER 2025-08-04 15:35 | Outpatient (CLI) | payer MEDICARE, SELFPAY ==
--- OUTSIDE RECORDS SUMMARY | 2009-08-05 19:00 | XMS_ITS | Continuity of Care Document ---
Author Organization [facility] Address [address] [place] [address] Phone Care Team Providers Care Top Former Name Role Phone [facility] Unavailable Unavail able Dana Oconnor Unavailable Unavailable Procedures Procedure Date Vision Svcs Frames Purchases Progressive Lens, Plastic Lens-Index 1.54-1.79 Glass Anti-reflective Coating Specialty Occup MultiFocal Lens,Per Lens Advance Directives Directive Yes / No Effective Date File Name No Information Encounters Encounter Description Practice Location Reason(s) For Visit Diagnoses Date Provider Providers Copied on Encounter [facility], [address], [place], [place], [id number], [place] tel:[phone] [facility] No Information [address] [facility] [address] [facility], [facility] [address], [place], [place], [id number] , [place]. tel:[phone] Referring Provider: Yossi Jaquez MD, [address] [facility] [address], [place], [address]. tel:[phone] g Provider: Dana Oconnor, [address] [place], [address]. tel:[phone] Family History Family Member Type Diagnosis Age At Onset No Information Payers Payer name Insurance type Covered democrat ID Authoriza tion(s) [employer] Plan CI [id number] Social History Type Description Quantity Date Captured Comments Sex Female Smoking Status No Information Chief Complaint And Reason For Visit No Information Reason For Referral Reason For Referral No Information History Of Present Illness Encounter Date Complaint History Of Prese nt Illness No Information Functional Status Date Functional Assessmen t No Information Instructions Date Instruction Additional Infor mation No Information Assessments Type Assessment Date No Information Patient Care Teams Name Effective Dates (start - stop) Status Members No Information
--- OUTSIDE RECORDS SUMMARY | 2024-12-31 09:15 | XMS_ITS | Continuity of Care Document ---
Author Organization [facility] Address [address] [facility] [address] [place] [address] Phone Care Team Providers [employer] Name Role Phone Mariel Downey OD Unavailable Unavailable Allergies, Adverse Reactions, Alerts Substance Reaction Status Criticality PENICILLIN Hives(moderate)Hives(moderate) Active No Information Medications Medication Instructions Dosage Effective Dates (start - stop) Status Comments lisinopril 40 mg tablet take 1 tablet by oral route every day 40 MG - Active metoprolol succinate ER 50 mg tablet,extended release 24 hr take 1 tablet by oral route every day 50 MG - Active Calcium 500 500 mg calcium (1,250 mg) tablet - Active methimazole 5 mg tablet take 1/2 tablet by oral route every day - Active multivitamin tablet - Active vitamin B complex tablet - Active Vitamin C 1,000 mg tablet - Active Vitamin D3 25 mcg (1,000 unit) capsule - Active Xarelto 20 mg tablet take 1 tablet by or al route every day with the evening meal 20 MG - Active Zyrtec 10 mg tablet take 1 tablet by ora l route every day 10 MG - Active Procedures Procedure Date POSTOP FOLLOW-UP VISIT YAG PC AFTER CATARACT LASER SURGERY GDX Retina OFFICE/OUTPATIENT VISIT, EST OFFICE/OUTPATIENT VISIT, NEW OFFICE/OUTPATIENT VISIT, EST Advance Directives Directive Yes / No Effective Date File Name No Information Encounters Encounter Description Practice Location Reason(s) For Visit Diagnoses Date Provider Providers Copied on Encounter [facility], [address] [place] [address], [place], [place], [id number], [place] tel:[phone] OPH CONSULT [facility] Post-Op (chief complaint) Presence of intraocular lens Dec-0 5 Shayan Floyd. [address] [place] [address], [address], [place], [place], [id number], [place]. tel:[phone] Referring Provider: Geremias Gonzales, [address] [place] [address], [id number] . tel:[phone] [facility], [address] [place] [address], [id number], [place] tel:[phone] [facility] No Information Dec-0 5 Radha Solorzano. [facility] [place], [place], [id number], [place]. tel:[phone] Referring Provider: Geremias Gonzales, [address] [place] [address], [id number] . tel:[phone] OFFICE/OUTPA TIENT VISIT, [facility], [address] [place] [address], [id number], [place] tel:[phone] OPH CONSULT [facility] Retinal drusen (chief complaint) Retinal drusen, bilateralTear film insufficiency of bilateral lacrimal glandsPresenc e of pseudophakiaH istory of therapeutic radiationOthe r secondary cataract, bilateral Nov- 5 Shayan Floyd. [address] [place] [address], [address], [place], [place], [id number], [place]. tel:[phone] Referring Provider: Geremias Gonzales, [address] [place] [address], [id number] . tel:[phone] OFFICE/OUTPA TIENT VISIT, [facility], [address] [place] [address], [id number], [place] tel:[phone] OPH CONSULT [facility] pseudophakia (chief complaint) Retinal drusen, bilateralHist ory of therapeutic radiationPres ence of pseudophakiaT ear film insufficiency of bilateral lacrimal glands Apr-0 4 Shayan Floyd. [address] [facility], [address], [place], [place], [id number], [place]. tel:[phone] Referring Provider: Geremias Gonzales, [address] [facility], [place], [address] . tel:[phone] OFFICE/OUTPA TIENT VISIT, EST [facility], [address], [place], [place], [id number], tel:[phone] [facility] blurry vision (chief complaint)irr itation (chief complaint) Age-related nuclear cataract, bilateralChal azion left upper eyelid No Information Referring Provider: Yossi Lambert MD, [address] [place] [address] [address], [place], [address]. tel:[phone] Family History Family Member Type Diagnosis Age At Onset Problem No family history of Glaucom a Father Problem Diabetes mellitus Problem No family history of Macular degeneration Payers Payer name Insurance type Covered green party ID Authoriza tion(s) No Information Social History Type Description Quantity Date Captured Comments Alcohol Use Details Unknown Caffeine Use Details Unknown Tobacco Use Status No Information Smoking Status No Information Sex Female Chief Complaint And Reason For Visit From encounter dated '12/31/2024 14:15'. Post-Op (chief complaint). Description: Additional information: 1 day PO YAG PC OU. pt states that vision is good. no blurriness, no pain or discomfort. no gtts.OU STND/DV 2021. Reason For Referral Reason For Referral No Information History Of Present Illness Encounter Date Complaint History Of Prese nt Illness Post-Op Additional infor mation: 1 day PO YAG PC OU. pt states that vision is good. no blurriness, no pain or discomfort. no gtts.OU STND/DV 2021. Retinal drusen The 79 year old female presents for evaluation of Retinal drusen OU. pt states that vision is OD comes and goes, like a black dot but there is no floaters started a couple of months ago. no pain or discomfort. pt wants DMV form filled out today. pseudophakia The 79 year old female presents for evaluation of pseudophakia in the right eye and left eye. It started about 1 year(s) ago. Pt states no complaints. She presents for an annual eye exam. irritation The patient is p resent for evaluation of irritation in the left eye for a few days now. Itching, tenderness. Pt thinks it is more the eyelid. Tried Visine, no improvement blurry vision The 76 year old female presents for evaluation of blurry vision in the right eye and left eye. The onset was gradual. It affects near vision. The symptom is constant. The condition is stable with glasses Functional Status Date Functional Assessmen t No Information Instructions Date Instruction Additional Infor newton Impression/Plan Related to Prese nce of intraocular lens Impression/Plan Related to Retin al drusen, bilateral Impression/Plan Related to Tear film insufficiency of bilateral lacrimal glands Impression/Plan Related to Prese nce of pseudophakia Impression/Plan Related to Histo ry of therapeutic radiation Impression/Plan Related to Other secondary cataract, bilateral Impression/Plan Related to Retin al drusen, bilateral Impression/Plan Related to Tear film insufficiency of bilateral lacrimal glands Impression/Plan Related to Prese nce of pseudophakia Impression/Plan Related to Histo ry of therapeutic radiation Impression/Plan Related to Age-r elated nuclear cataract, bilateral Impression/Plan Related to Chala bakari left upper eyelid Assessments Type Assessment Date assessment Presence of intraocular lens Dec Patient Care Teams Name Effective Dates (start - stop) Status Members No Information
--- OUTSIDE RECORDS SUMMARY | 2025-08-03 15:00 | XMS_ITS | Encounter Summary ---
Author Organization [facility] Healthcare Address [address] [place] [address] Care Team Providers Care Stage Technician Name Role Phone Genevieve Sanchez MD Unavailable [phone] Geo Hernandez MD Primary Care Provider [phone] Pedro Pablo Akers MD Unavailable Cora Bell MD PhD Unavailable [phone] Romel Louie MD Unavailable [phone] Sasha MAS MD PhD, Santi Archuleta Unavailable Reason for Visit * Reason Comments Atrial Fibrillation Hypertension Encounter Details Date Type Department Care Team (Late st Contact Info) Description 08/03/2025 3:00 PM CDT Office Visit [facility] Cardiology [address] [facility] [address] [place] [id number] Cecile Stallings NP [address] [place] [address] PAF (paroxysmal atrial fibrillation) (Primary Dx); MCFP current use of 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 drug; Chronic anticoagulation; Essential hypertension Social History Tobacco Use Types Packs/Day Years [...] on file 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 Gender Identity Female 05/14/2019 9:25 AM CDT Sexual Orientation Not on file documented as of this encounter Last Filed Vital Signs Vital Sign Reading Time Taken Comments Blood Pressure 122/68 08/03/2025 3:13 PM CDT Pulse 57 08/03/2025 3:13 PM CDT Temperature - - Respiratory Rate - - Oxygen Saturation 98% 08/03/2025 3:13 PM CDT Inhaled Oxygen Concentration - - Weight 68.4 kg (150 lb 14.4 oz) 08/03/2025 3:13 PM CDT Height 167.6 cm (5' 6) 08/03/2025 3:1 3 PM CDT Body Mass Index 24.36 08/03/2025 3:13 PM CDT documented in this encounter Progress Notes * Cecile Stallings NP - 08/03/2025 3:00 PM CDT Images from the original note were not included. [facility] Cardiology [address] [place] [address] Date of Visit: 08/03/2025 Patient ID: Mariana Mccracken 1945 Chief Complaint Patient presents with Atrial Fibrillation Hypertension Mariana Mccracken is a 80 y.o. female who is a former patient of Dr. Marr with a history of PAF coming to the office for routine follow-up. History of Present Illness: Mariana Mccracken is a 80 y.o. female with symptomatic paroxysmal atrial fibrillation, failed tx w/ metoprolol and flecainide, s/p AFib ablation, ablation of right septal tachycardia, ablation of atrialflutter by Dr. Han In January 2021. Had recurrent a fib RVR in 2021 and flecainide resumed. Also: chronic anticoagulation, subclinical hyperthyroidism with thyroid nodules, followed by Dr. 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 She seemed to have aallergic skin reaction with hives on her arm after IV diltiazem. She was already on metoprolol for her history of palpitations (but no diagnosed prior AFib). Her metoprolol was increased to 50 mg daily. Labs showed subclinical hyperthyroidism and a thyroid ultrasound showed nodules. Over the subsequent years she had occasional episodes and her metoprolol was increased. Flecainide started in 2020.Had a fib ablation by Dr. Krueger 01/2021. Recurrent a fib in 2021 and flecainide resumed, increased to 100 mg bid in 2022. Also in since being on the amlodipine/valsartan, she developed ankle edema and went back to amlodipine 2.5 mg and lisinopril instead. 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 Shedenies palpitations or any bleeding problems. Her cancer remains in remission. She started taking beet root powder to help her blood pressure and she thinks she has noticed a difference. She continues to walk with her for exercise. 12-lead ECG performed in the office today was independently interpreted by me and showed sinus rhythm, first-degree AVB, QTC 438 MS, rate 57 beats per minute. 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 Arrhythmia Atrial fibrillation (HCC) Hypertension Osteoporosis 10/29/2009 Thyroid disease 03/19/2019 Past Surgical History: Procedure Laterality Date CARPAL TUNNEL RELEASE Left 01/2023 CATARACT EXTRACTION 07/2022 Social History Tobacco Use Smoking Status Never Smokeless Tobacco Never Social History Tobacco Use Smoking status: Never Smokeless tobacco: Never Substance and Sexual Activity Drug use: Never Sexual activity: Not Currently Partners: Male control/protection: Post-menopausal Alcohol Use: Not At Risk (11/05/2023) AUDIT-C Frequency of Alcohol Consumption: 2-3 times a week Average Number of Drinks: 1 or 2 Frequency of Binge Drinking: Never Family History Problem Relation Age of Onset Alcohol abuse Father Cancer Father Diabetes Father Cancer Mother Hypertension Mother Review of Systems Constitutional: Negative for malaise/fatigue, weight gain and weight loss. Cardiovascular: Negative for chest pain, dyspnea on exertion, leg swelling, near-syncope, orthopnea, palpitations, paroxysmal nocturnal dyspnea and syncope. Respiratory: Negative for cough, shortness of breath and sleep disturbances due to breathing. Hematologic/Lymphatic: Negative for bleeding problem. Bruises/bleeds easily. Vital Signs: BP 122/68 (BP Location: Right arm, Patient Position: Sitting) Pulse 57 Ht 167.6 cm (5' 6) Wt68.4 kg (150 lb 14.4 oz) SpO2 98% BMI 24.36 kg/m?? Physical Exam Constitutional: General: She is not in acute distress. Appearance: She is well-developed. HENT: Head: Normocephalic and atraumatic. Eyes: General: No scleral icterus. Conjunctiva/sclera: Conjunctivae normal. Neck: Vascular: No JVD. Trachea: No tracheal deviation. Cardiovascular: Rate and Rhythm: Normal rate and regular rhythm. Heart sounds: Normal heart sounds. No murmur heard. Pulmonary: Effort: Pulmonary effort is normal. No respiratory distress. Breath sounds: Normal breath sounds. Skin: General: Skin is warm and dry. Neurological: Mental Status: She is alert and oriented to person, place, and time. Psychiatric: Mood and Affect: Mood normal. Behavior: Behavior normal. Allergies Allergen Reactions Amlodipine-Olmesartan Swelling Pedal edema taking amlodipine-olmesartan 5/160 mg every day. Diltiazem Hives Had hives on her arm after IV injection of either diltiazem or IV amiodarone in 2019. Hydrocodone-Acetaminophen Vomiting Penicillin Rash Penicillins Hives, Other (See comments) and Rash Mouth sores Current Outpatient Medications: ascorbic acid (VITAMIN C) 1,000 mg tablet, Take 1 tablet (1,000 mg total) by mouth daily, Disp: , Rfl: CALCIUM ORAL, Take 1,200 mg by mouth daily, Disp: , Rfl: cetirizine (ZyrTEC) 10 mg tablet, Take 1 tablet (10 mg total) by mouth as needed for allergies, Disp: , Rfl: cholecalciferol (VITAMIN D-3) 1,000 unit capsule, Take 1 capsule (1,000 Units total) by mouth daily, Disp: , Rfl: flecainide (TAMBOCOR) 100 mg tablet, TAKE 1 TABLET(100 MG) BY MOUTH TWICE DAILY, Disp: 180 tablet, Rfl: 1 lisinopriL (PRINIVIL,ZESTRIL) 40 mg tablet, Take 1 tablet (40 mg total) by mouth daily, Disp: 90 tablet, Rfl: 3 methIMAzole (TAPAZOLE) 5 mg tablet, Take 1 tablet (5 mg total) by mouth Take Sunday through Sunday,Disp: , Rfl: metoprolol XL (TOPROL-XL) 50 mg extended release tablet, TAKE 1 TABLET(50 MG) BY MOUTH DAILY, Disp:90 tablet, Rfl: 0 multivitamin capsule, Take 1 capsule by mouth daily, Disp: , Rfl: RED BEET ORAL, Take 1 Dose by mouth daily, Disp: , Rfl: triamcinolone (KENALOG) 0.1 % ointment, Apply topically as needed, Disp: , Rfl: vitamin b complex tablet, Take 1 tablet by mouth every other day, Disp: , Rfl: Xarelto 20 mg tablet, TAKE 1 TABLET(20 MG) BY MOUTH DAILY, Disp: 90 tablet, Rfl: 3 Lab Results Component Value Date POTASSIUM 3.8 05/04/2025 BUNSER 11 05/04/2025 CREATININE 0.48 (L) 05/04/2025 Lab Results Component Value Date WBC 3.95 05/04/2025 HGB 13.2 05/04/2025 HCT 38.8 05/04/2025 MCV 90.4 05/04/2025 No results found for this or any previous visit (from the past 4 hours). Lab Results Component Value Date POCCHOL 202 07/07/2020 POCHDL 73 07/07/2020 POCTRIG 89 07/07/2020 POCLDL 111 07/07/2020 POCNONHDL 129 07/07/2020 POCCHLPL 07/07/2020 Assessment: Diagnoses and all orders for this visit: PAF (paroxysmal atrial fibrillation) (Primary) MCFP current use of 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 drug Chronic anticoagulation Essential hypertension Plan/Recommendations: She is maintaining sinus rhythm with flecainide. QT interval is appropriate. A stress test was performed in June 2024 as ischemic evaluation to rule out development of obstructive coronary disease so that we may continue to safely use flecainide long-term. Her stress test was negative. She hasnormal renal function. Continue flecainide and metoprolol. She has no bleeding problems. Continue Xarelto for stroke risk reduction. Blood pressure is controlled on higher dose of lisinopril. Continue lisinopril 40 mg daily along with metoprolol. He may continue the beet powder as well. Return to the office for follow-up with me in 6 months. At the next visit we can discuss transitioning her care from Dr. Garcia to another forest patrolman. 08/03/2025 ARMIDA Barragan- Nurse Practitioner with [facility] This note is dictated and transcribed using [employer] Direct Software. Armored Truck Driver variancesmay occur. Despite proofreading, typographical errors may occur. documented in this encounter Miscellaneous Notes * Addendum Note - Tram Zhang MA - 08/03/2025 3:00 PM CDTAddended by: TRAM ZHANG on: 08/04/2025 10:18 AM Modules accepted: Orders documented in this encounter Plan of Treatment Scheduled Procedures Name Priority Associated Diagnoses Date/Ti ky ESOPHAGOGASTRODUODENOSCOPY Carcinoma of unknown primary (HCC) documented as of this encounter Procedures Procedure Name Priority Date/Time Associated Diagnosis Comments ELECTROCARDIOGRAM REPORT Routine 025 10:16 AM CDT PAF (paroxysmal atrial fibrillation) documented in this encounter Results * Electrocardiogram Report (08/04/2025 10:16 AM CDT) Cecile tSallings NP ECG ORDERABLES Final Res ult documented in this encounter Visit Diagnoses Diagnosis PAF (paroxysmal atrial fibrillation)- Primary Atrial fibrillation MCFP current use of 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 drug Chronic anticoagulation Encounter for long-term (current) use of anticoagulants Essential hypertension Unspecified essential hypertension documented in this encounter Historical Medications * This list may reflect changes made after this encounter. RED BEET ORAL Take 1 Dose by mouth daily added in this encounter Care Teams Stage Technician Relationship Specialty Start Date End Date Geo Hernandez MD [address] [place] [address] PCP - General Family Practice 05/03/23 Genevieve Sanchez MD [address] [place] [address] Consulting Physician Endocrinology 07/12/20 Pedro Pablo Akers MD [address] [place] [address] Referring Physician Dermatology 05/03/23 Cora Bell MD PhD [address] [facility] [address] [place] [address] Medical Oncologist/Account Group Supervisor Medical Oncology 05/07/23 Romel Louie MD [address] [facility] [address] [place] [address] Medical Oncologist/Account Group Supervisor Medical Oncology 08/15/23 Santi Baez III, MD PhD [address] [facility] [address] [place] [address] Radiation Oncologist Radiation Oncology 01/08/24 documented as of this encounter
--- NOTE | ~2025-08-04 | MM_ITS ---
EXAMINATION: MM screening jones BI w elias HISTORY: Screening TECHNIQUE: Craniocaudal and mediolateral oblique 3-D tomosynthesis images were obtained and synthetic 2-D images were generated. CAD analysis was submitted and interpreted. COMPARISON: Comparison to multiple prior studies sequentially, with oldest reviewed study dated , 01/10/2018 BREAST PARENCHYMAL COMPOSITION: There are scattered areas of fibroglandular density. FINDINGS: There is no evidence of suspicious mass, calcification, or architectural distortion to suggest malignancy in either breast. IMPRESSION: 1. No mammographic evidence of malignancy. 2. Recommend routine screening mammography in one year. BI-RADS Category 1: Negative Reviewed, dictated and finalized at location B.
--- OUTSIDE RECORDS SUMMARY | 2025-08-04 16:25 | XMS_ITS | Clinical Summary ---
Author Organization [facility] [place] [address] Address [address] [place] [address] Care Team Providers Care Production Cell Leader Name Role Phone Genevieve Sanchez MD Unavailable [phone] Geo Hernandez MD Primary Care Provider [phone] Pedro Pablo Akers MD Unavailable Cora Bell MD PhD Unavailable [phone] Romel Louie MD Unavailable [phone] Sasha MAS MD PhD, Santi Archuleta Unavailable Allergies Active Allergy Reactions Criticality Noted Date Comments Amlodipine-Olmesartan Swelling Medium 01/07/2024 Pedal edema taking amlodipine-olmesarta n 5/160 mg every day. Diltiazem Hives Medium 12/27/2022 Had hives on her arm after IV injection of either diltiazem or IV amiodarone in 2019. Hydrocodone-Acetaminop hen Vomiting Medium 02/01/2022 Penicillin Rash Medium 08/30/2021 Penicillins Hives,Other (See comments),Rash Medium 02/06/2019 Mouth sores Medications multivitamin capsule [...] ointment Apply topically as needed 3 Active lisinopriL (PRINIVIL,ZESTRIL ) 40 mg tabletIndications :Essential hypertension Take 1 tablet (40 mg total) by mouth daily 90 tablet 3 5 09/25/20 25 Active flecainide (TAMBOCOR) 100 mg tablet TAKE 1 TABLET(100 MG) BY MOUTH TWICE DAILY 180 tablet 1 5 Active metoprolol XL (TOPROL-XL) 50 mg extended release tabletIndications :PAF (paroxysmal atrial fibrillation),Ess ential hypertension TAKE 1 TABLET(50 MG) BY MOUTH DAILY 90 tablet 5 Active Xarelto 20 mg tablet TAKE 1 TABLET(20 MG) BY MOUTH DAILY 90 tablet 3 5 Active RED BEET ORAL Take 1 Dose by mouth daily Active Active Problems Problem Noted Date Diagnosed Date 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 I have therefore recommended that she remain anticoagulated for thromboprophylaxis. Borderline high blood pressure 12/10/2019 08/09/2021 Encounters Date Type Department Care Team Description 08/03/2025 3:00 PM CDT Office Visit [facility] Cardiology [address] [place] [address] Cecile Stallings NP PAF (paroxysmal atrial fibrillation) (Primary Dx); senior care current use of 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 drug; Chronic anticoagulation; Essential hypertension 05/04/2025 12:20 PM CDT Office Visit [facility] Medicine Oncology [address] [place] [address] [address] [place] [address] Romel Louie MD Primary eccrine carcinoma of skin (Primary Dx); Poorly differentiated malignant carcinoid tumor (HCC); Carcinoma of unknown primary (HCC) 05/04/2025 11:15 AM CDT Lab [facility] Medicine Oncology Lab [address] [place] [address] 6 [place] [address] Poorly differentiated malignant carcinoid tumor (HCC); Carcinoma of unknown primary (HCC) 05/04/2025 10:30 AM CDT Clinical Support [facility] - Lab Collection [address] [facility] Floor 6 [place] [address] Poorly differentiated malignant carcinoid tumor (HCC); Carcinoma of unknown primary (HCC) 05/04/2025 9:16 AM CDT - 05/04/2025 11:59 PM CDT Hospital Encounter [facility] - PET [address] [facility] Floor 8 [place] [address] Discharge Disposition: Discharge to home or self care 05/04/2025 8:09 AM CDT - 05/04/2025 11:59 PM CDT Hospital Encounter [facility] - PET [address] [facility] Floor 8 [place] [address] Poorly differentiated malignant carcinoid tumor (HCC); Carcinoma [...] on file 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 Gender Identity Female 05/14/2019 9:25 AM CDT [...] Pulse 57 08/03/2025 3:13 PM CDT Temperature 36.4 C (97.5 F) 05/04/2025 11:58 AM CDT Respiratory Rate 18 05/04/2025 11:5 8 AM CDT Oxygen Saturation 98% 08/03/2025 3:13 PM CDT Inhaled Oxygen Concentration - - Weight 68.4 kg (150 lb 14.4 oz) 08/03/2025 3:13 PM CDT Height 167.6 cm (5' 6) 08/03/2025 3:13 PM CDT Body Mass Index 24.36 08/03/2025 3:13 PM CDT Plan of Treatment Scheduled Procedures Name Priority Associated Diagnoses Date/Ti me ESOPHAGOGASTRODUODENOSCOPY Carcinoma of unknown primary (HCC) Health Maintenance Due Date Last Done Comments Depression Screening 1945 Hepatitis C Screening 1945 Osteoporosis Screening-Bone Density Scan 1945 DTaP/Tdap/Td Vaccine (1 - Tdap) 1957 Hepatitis B Screening 01/06/1964 Pneumococcal vaccine 65+ (1 of 2 - PCV) 1965 Well Visit 65+ 2011 Fall Risk Assessment 11/05/2024 11/05/2023, 06/20/20 Covid-19 Vaccine (6 - 2024-2 6 season) 2025 08/01/2022, 03/13/2022, 08/02/2021, Additional history exists Zoster Vaccine Completed 02/23/2022, 12/20/2021 Breast Cancer Screening-Mammogram Discontinued 023 Colon Cancer Screening-CT Colonography Discontinued 06/20/2023 Colon Cancer Screening-Colonoscopy Discontinued 06/20/2023 Colon Cancer Screening-DNA Stool Discontinued 06/20/20 Colon Cancer Screening-FIT Discontinued 06/20/2023 Colon Cancer Screening-FOBT Discontinued 06/20/2023 Colon Cancer Screening-Sigmoidoscopy Discontinued 06/20/2023 Colorectal Cancer Screening Discontinued Influenza Vaccine Completed 07/09/2025, , 07/09/2024, Additional history exists Medical Devices Implanted Type Area Manager Advertising Device Identifier Shelf Expiration Date Model / Serial / Lot [employer] [id number] Vascade 6/7fr Bioabsorbable Vascular System Compression Collagen - [id number] - [id number] Implanted:Qty: 1 on 03/16/2021 by Mesfin Han MD at [facility] Collagen [employer] 10/05/2022 [id number] 5U / [id number] / [id number] [employer] [id number] System 6-12fr Mvp Venous Closure Vascade - [id number] - [id number] Implanted:Qty: 1 on 03/16/2021 by Mesfin Han MD at [facility] Collagen [employer] 01/13/2023 [id number] 0U / [id number] / [id number] [employer] [id number] System 6-12fr Mvp Venous Closure Vascade - [id number] - [id number] Implanted:Qty: 1 on 03/16/2021 by Mesfin Han MD at [facility] Collagen [employer] 01/13/2023 800-612C-1 0U / [id number] [id number] / [id number] [employer] [id number] System 6-12fr Mvp Venous Closure Vascade - [id number] - [id number] Implanted:Qty: 1 on 03/16/2021 by Mesfin Han MD at [facility] Collagen [employer] 01/13/2023 800-612C-1 0U / [id number] [id number] / [id number] Procedures Procedure Name Priority Date/Time Associated Diagnosis Comments ELECTROCARDIOGRAM REPORT Routine 08/04/2025 10:16 AM CDT PAF (paroxysmal atrial fibrillation) EGFR Routine 05/04/2025 10:35 AM CDT 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) DIFFERENTIAL AUTO Routine 05/04/2025 10:35 AM CDT 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) CBC WITH AUTO DIFFERENTIAL Routine 05/04/2025 10:35 AM CDT 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) COMPREHENSIVE METABOLIC PANEL Routine 05/04/2025 10:35 AM CDT 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) LACTATE DEHYDROGENASE Routine 05/04/2025 10:35 AM CDT 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) PET/CT FDG SKULL TO THIGH Schedule Routine, Read Routine (OP Routine) 05/04/2025 10:30 AM CDT 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) COLONOSCOPY 06/20/2023 12:46 PM CDT SCREENING MAMMOGRAM BILATERAL W ROBBIE Schedule Routine, Read Routine (OP Routine) 06/18/2023 11:45 AM CDT Adenocarcinoma of unknown primary (HCC) Encounter for screening mammogram for malignant neoplasm of breast from Last 3 Months or Most Recently Relevant to Health Maintenance Results * Electrocardiogram Report (08/04/2025 10:16 AM CDT) Cecile Stallings NP ECG ORDERABLES Final Res ult * eGFR (05/04/2025 10:35 AM CDT) eGFR >90 >=60 mL/min/1. 73 m2 Comment: [...] interpretive data was last reviewed 2021. Blood 05/04/2025 10:3 5 AM CDT 05/04/2025 10:43 AM CDT us Jalen Stoll NP LAB BLOOD ORDERABLES Nuvia beckman Result [facility] Department of Laboratories [place] [id number] * Differential, auto (05/04/2025 10:35 AM CDT) Neutrophil abs 1.84 1.50 - 6.50 K/cumm Comment:Testing performed by : [facility], [address] [place] [address] Lymphocyte abs 1.67 0.80 - 3.30 K/cumm [facility] Comment:Testing performed by : [facility], [address] [place], [place] [phone] Monocyte abs 0.39 0.20 - 0.80 K/cumm [facility] Comment:Testing performed by : [facility], [address] [place], [place] [phone] Eosinophil abs 0.03 0.00 - 0.50 K/cumm [facility] Comment:Testing performed by : [facility], [address] [place], [place] [phone] Basophil abs 0.02 0.00 - 0.10 K/cumm [facility] Comment:Testing performed by : [facility], [address] [place], [place] [phone] Neutrophil pct 46.6 % [facility] Comment: Interpretive Data Percent cell count reference ranges are not reported, since discordance with absolute values may lead to misinterpretation of CBC data. Current Interpretive Data was last revised on 2018. Testing performed by: [facility], [address] [place] [phone] Lymphocyte pct 42.3 % [facility] Comment: Interpretive Data Percent cell count reference ranges are not reported, since discordance with absolute values may lead to misinterpretation of CBC data. Current Interpretive Data was last revised on 2018. Testing performed by: [facility], [address] [place] [phone] Monocyte pct 9.9 % [facility] Comment: Interpretive Data Percent cell count reference ranges are not reported, since discordance with absolute values may lead to misinterpretation of CBC data. Current Interpretive Data was last revised on 2018. Testing performed by: [facility], [address] [place] [address] Eosinophil pct 0.7 % [facility] Comment: Interpretive Data Percent cell count reference ranges are not reported, since discordance with absolute values may lead to misinterpretation of CBC data. Current Interpretive Data was last revised on 2018. Testing performed by: [facility], [address] [place] [phone] Basophil pct 0.5 % [facility] Comment: Interpretive Data Percent cell count reference ranges are not reported, since discordance with absolute values may lead to misinterpretation of CBC data. Current Interpretive Data was last revised on 2018. Testing performed by: [facility], [address] [place] [phone] Blood 05/04/2025 10:3 5 AM CDT 05/04/2025 10:41 AM CDT Jalen Stoll NP LAB BLOOD ORDERABLES Nuvia beckman Result [facility] Department [place] [address] * CBC with auto differential (05/04/2025 10:35 AM CDT) WBC 3.95 3.80 - 9.90 K/cumm Comment:Testing performed by : [facility], [address] [place] [address] Hgb 13.2 11.9 - 15.5 g/dL [facility] Comment:Testing performed by : [facility], [address] [place], [place] [phone] Hct 38.8 35.6 - 45.5 % [facility] Comment:Testing performed by : [facility], [address] [place], [place] [phone] Plt 209 150 - 400 K/cumm [facility] Comment:Testing performed by : [facility], [address] [place] [address] MPV 7.0 6.8 - 10.4 fL [facility] Comment:Testing performed by : [facility], [address] [place], [place] [phone] RBC 4.29 3.90 - 5.20 M/cumm [facility] Comment:Testing performed by : [facility], [address] [place] [address] MCV 90.4 81.3 - 96.4 fL [facility] Comment:Testing performed by : [facility], [address] [place] [address] MCH 30.7 27.1 - 33.3 pg [facility] Comment:Testing performed by : [facility], [address] [place] [address] MCHC 34.0 32.3 - 35.7 g/dL [facility] Comment:Testing performed by : [facility], [address] [place] [address] RDW CV 13.0 11.1 - 14.9 % [facility] Comment:Testing performed by : [facility], [address] [place] [address] NRBC abs 0.00 0.00 - 0.01 K/cumm [facility] Comment:Testing performed by : [facility] Cancer [facility], [address] [place] [phone] Blood 05/04/2025 10:3 5 AM CDT 05/04/2025 10:41 AM CDT Jalen Stoll NP LAB BLOOD ORDERABLES Nuvia l Result Performing Organization Address City/[facility]/ZIP Co de Phone Number [facility] Department [place] [address] * Lactate dehydrogenase (LD) (05/04/2025 10:35 AM CDT) [facility] Lactate dehydrogenase (LDH) 171 100 - 250 Units/L Blood 05/04/2025 10:3 5 AM CDT 05/04/2025 10:43 AM CDT Jalen Stoll BUSINESS MANAGEMENT PROFESSOR LAB BLOOD ORDERABLES Nuvia l Result Performing Organization Address [facility] de Phone Number [facility] Department [place] [address] * (ABNORMAL) Comprehensive metabolic panel (05/04/2025 10:35 AM CDT) [facility] Sodium 134(L) 135 - 145 mmol/L Potassium, pl 3.8 3.3 - 4.9 mmol/L [facility] Chloride 98 97 - 110 mmol/L [facility] CO2 26 22 - 32 mmol/L [facility] Anion gap 10 2 - 15 mmol/L [facility] BUN 11 6 - 25 mg/dL [facility] Creatinine 0.48(L) 0.60 - 1.10 mg/dL [facility] Glucose 89 70 - 199 mg/dL [facility] Comment: Interpretive Data Fasting glucose >/= 126 [...] interpretive data was last revised 2022. Calcium 9.1 8.5 - 10.3 mg/dL [facility] Bilirubin, total 0.4 0.1 - 1.2 mg/dL [facility] Protein, pl 7.4 6.5 - 8.5 g/dL [facility] Albumin 4.1 3.5 - 5.0 g/dL [facility] Alk phos 90 40 - 130 Units/L [facility] ALT 14 7 - 45 Units/L [facility] AST 22 10 - 45 Units/L [facility] Blood 05/04/2025 10:3 5 AM CDT 05/04/2025 10:43 AM CDT Jalen Stoll BUSINESS MANAGEMENT PROFESSOR LAB BLOOD ORDERABLES Nuvia beckman Result [facility] Department [place] [address] * PET/CT FDG Skull to Thigh (05/04/2025 10:30 AM CDT) Anatomical Region Laterality Modality N/A Positron Emissio n Tomography (PET) 05/04/2025 11:1 6 AM CDT Impressions 05/04/2025 11:19 AM CDT No FDG PET/CT evidence of residual/recurrent malignancy. Dictated by: Nathan Estrada MD The radiology attending physician has personally reviewed this study, and had reviewed and/or edited this written report and agrees with it. Electronically signed by: Denny Glynn M.D. Narrative 05/04/2025 11:19 AM CDT EXAMINATION: TUMOR FDG-PET/CT IMAGING DATE OF STUDY: 05/04/2025 SCANNER: [facility] World BX (SQ1). This is a high-resolution scanner, which can result in higher SUVs (and even detection of previously unrecognized small lesions) compared to older scanners. RADIOPHARMACEUTICAL: 7.51 mCi F-18 Fluorodeoxyglucose (FDG) i.v. 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 The study is requested for follow-up. Subsequent treatment strategy. TECHNIQUE: The patient's fasting blood glucose level, measured by glucometer before injection of FDG, was 98 mg/dL. After intravenous administration of FDG, noncontrast CT images were obtained for attenuation correction and for fusion with emission PET images to allow for anatomical localization of PET findings. Emission PET images were then obtained. The study was interpreted on the [employer]oder[employer] workstation. The mean liver SUV (reported for quality engineering manager purposes) is 2.7. The total scanned area was skull vertex to proximal thighs. Images of the body were obtained starting 64 minutes after injection of tracer. All reported SUVs are maximum SUVs, unless otherwise specified. COMPARISON: 12/29/2024 DESCRIPTORS OF LESION FDG AVIDITY: Minimal: <= blood pool Mild: > blood pool and <= liver Moderate: > liver and <= 2x SUVmax liver Moderate to marked: >2x SUVmax liver and <= 3x SUVmax liver Marked: > 3x SUVmax liver FINDINGS: No FDG avid suspicious foci to suggest recurrent or metastatic disease. Mild FDG avid right thyroid nodule consistent with patient's known multinodular goiter. Additional CT findings: Dental restorations are noted. Degenerative changes of the spine and shoulders. Aortic and coronary calcifications. Small fat-containing umbilical hernia. Healed right pubic ramus fracture. Healed left rib fractures. Unchanged 3mm right lung nodule below PET/CT resolution. L1 superior endplate chronic compression deformity. Procedure Note Denny Glynn MD - 05/04/2025 EXAMINATION: TUMOR FDG-PET/CT IMAGING DATE OF STUDY: 05/04/2025 SCANNER: [facility] World BX (SQ1). This is a high-resolution scanner, which can result in higher SUVs (and even detection of previously unrecognized small lesions) compared to older scanners. RADIOPHARMACEUTICAL: 7.51 mCi F-18 Fluorodeoxyglucose (FDG) i.v. 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 The study is requested for follow-up. Subsequent treatment strategy. TECHNIQUE: The patient's fasting blood glucose level, measured by glucometer before injection of FDG, was 98 mg/dL. After intravenous administration of FDG, noncontrast CT images were obtained for attenuation correction and for fusion with emission PET images to allow for anatomical localization of PET findings. Emission PET images were then obtained. The study was interpreted on the [employer] workstation. The mean liver SUV (reported for quality engineering manager purposes) is 2.7. The total scanned area was skull vertex to proximal thighs. Images of the body were obtained starting 64 minutes after injection of tracer. All reported SUVs are maximum SUVs, unless otherwise specified. COMPARISON: 12/29/2024 DESCRIPTORS OF LESION FDG AVIDITY: Minimal: <= blood pool Mild: > blood pool and <= liver Moderate: > liver and <= 2x SUVmax liver Moderate to marked: >2x SUVmax liver and <= 3x SUVmax liver Marked: > 3x SUVmax liver FINDINGS: No FDG avid suspicious foci to suggest recurrent or metastatic disease. Mild FDG avid right thyroid nodule consistent with patient's known multinodular goiter. Additional CT findings: Dental restorations are noted. Degenerative changes of the spine and shoulders. Aortic and coronary calcifications. Small fat-containing umbilical hernia. Healed right pubic ramus fracture. Healed left rib fractures. Unchanged 3mm right lung nodule below PET/CT resolution. L1 superior endplate chronic compression deformity. IMPRESSION: No FDG PET/CT evidence of residual/recurrent malignancy. Dictated by: Nathan Estrada MD The radiology attending physician has personally reviewed this study, and had reviewed and/or edited this written report and agrees with it. Electronically signed by: Denny Glynn M.D. Jalen Stoll NP IMG PET PROCEDURES Final Result * COLONOSCOPY (06/20/2023 12:46 PM CDT) Anatomical Region Laterality Modality Other Narrative Procedure Note Mora Ray MD PhD - 06/20/2023 12:46 PM CDT [facility] Patient Name: Mariana Mccracken Procedure Date: 06/20/2023 12:46 PM Date of : 1945 Admit Type: Outpatient Age: 78 Gender: Female Attending MD: Mora Ray M.D. Room: [facility] ENDOSCOPY ROOM 4 Note Status: Addendum [...] scope was passed under direct vision.The CF [id number] endoscope was introduced through the anus and advanced to the cecum, identified by appendiceal orifice and ileocecal valve. The colonoscopy was performed without difficulty. The patient tolerated the procedure well. The qualityof the bowel preparation was evaluated using the BBPS ([place] Bowel Preparation Scale) with scores of:Right Colon [...] On: 06/20/2023 12:46 PM Recognized by the [place] for promoting quality [...] MEDICARE T MEDICARE T MEDICARE Care Teams Production Cell Leader Relationship Specialty Start Date End Date Geo Hernandez MD [address] [place] [address] PCP - General Family Practice 05/03/23 Genevieve Sanchez MD [address] [place] [address] Consulting Physician Endocrinology 07/12/20 Pedro Pablo Akers MD [address] [address] Referring Physician Dermatology 05/03/23 Cora Bell MD PhD [address] [facility] [address] [place] [address] Medical Oncologist/Health Careers Instructor Medical Oncology 05/07/23 Romel Louie MD [address] [address] [place] [address] Medical Oncologist/Health Careers Instructor Medical Oncology 08/15/23 Santi Baez III, MD PhD [address] [address] [place] [address] Radiation Oncologist Radiation Oncology 01/08/24
--- OUTSIDE RECORDS SUMMARY | 2025-08-04 16:25 | XMS_ITS | Encounter Summary ---
Author Organization 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 Gender Identity Female 05/14/2019 9:25 AM [...] on filedocumented in this encounter Care Teams Pen Ruler Operator Relationship Specialty Start Date End Date Geo Hernandez MD [address] [place], [place] [id number] PCP - General Family Practice 05/03/23 Genevieve Sanchez MD [address] [place] [address] Consulting Physician Endocrinology 07/12/20 Pedro Pablo Akers MD [address] [place] [address] Referring Physician Dermatology 05/03/23 Cora Bell MD PhD [address] [facility] [address] [place] [address] Medical Oncologist/Equipment Washer Medical Oncology 05/07/23 Benoit Blanton MD [address] [place] [address] Consulting Physician Medical Oncology 08/15/23 08/31/24 Romel Louie MD [address] [place] [address] Medical Oncologist/Equipment Washer Medical Oncology 08/15/23 Santi Baez III, MD PhD [address] [place] [address] Radiation Oncologist Radiation Oncology 01/08/24 documented as of this encounter
--- OUTSIDE RECORDS SUMMARY | 2025-08-04 16:25 | XMS_ITS | Encounter Summary ---
Author Organization [facility] Address [address] [place] [address] Phone Care Team Providers Care Instrument Checker Name Role Phone Genevieve Sanchez MD Unavailable [phone] Geo Hernandez MD Primary Care Provider [phone] Pedro Pablo Akers MD Unavailable Cora Bell MD PhD Unavailable [phone] Fa'Benoit beltran MD Unavailable Romel Louie MD Unavailable [phone] Sasha MAS MD PhD, Santi Archuleta Unavailable Encounter Details Date Type Department Care Team (Late st Contact Info) Description 09/14/2023 Orders Only [facility] Oncology [address] [facility] 7th [place] [address] [place] [address] Romel Louie MD [address] [facility] [address] [place] [address] Social History Tobacco Use Types Packs/Day Years [...] on file 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 Gender Identity Female 05/14/2019 9:25 AM CDT Sexual Orientation Not on file documented as of this encounter Plan of Treatment Scheduled Procedures Name Priority Associated Diagnoses Date/Ti me ESOPHAGOGASTRODUODENOSCOPY Carcinoma of unknown primary (HCC) documented as of this encounter Visit Diagnoses Not on filedocumented in this encounter Care Teams Instrument Checker Relationship Specialty Start Date End Date Geo Hernandez MD [address] [place], [place] [address] PCP - General Family Practice 05/03/23 Genevieve Sanchez MD [address] [place] [address] Consulting Physician Endocrinology 07/12/20 Pedro Pablo Akers MD [address] [place] [address] Referring Physician Dermatology 05/03/23 Cora Bell MD PhD [address] [facility] [address] [place] [address] Medical Oncologist/Senior Military Analyst Medical Oncology 05/07/23 Benoit Blanton MD [address] [place] [address] Consulting Physician Medical Oncology 08/15/23 08/31/24 Romel Louie MD [address] [place] [address] Medical Oncologist/Senior Military Analyst Medical Oncology 08/15/23 Santi Baez III, MD PhD [address] [place] [address] Radiation Oncologist Radiation Oncology 01/08/24 documented as of this encounter
--- OUTSIDE RECORDS SUMMARY | 2025-08-04 16:25 | XMS_ITS | Data Portability ---
Author Organization [place] [facility] [employer], Main Office Address [address] [place] [address] Care Team Providers Care Field Sales Representative Name Role Phone ANTONINO GUILLAUME Primary Care Provider [phone] Assessment No assessment recorded. Plan of Treatment Reminders Order Date Submit Date Provider Last Modified By Organization Details Last Modified Time Details Appointments None recorded. Lab None recorded. Referral None recorded. Procedures cerumen removal (PROC) 2023 024 [email or web address] Not available 15:44:11 Surgeries None recorded. Imaging CT, temporal bone, w/o contrast 2024 025 Not available 15:16:53 Medication Orders Ciprodex 0.3 %-0.1 % ear drops,susp ension 2024 025 [id number], [address] [facility], [place], [place], [id number], 15:16:58 Patient TargetsNo targets recorded. Patient Instructions Encounter Date Encounter Id Patient Instructions Last Modified By Organization Details Last Modified Time 09/03/2024 [id number] Discussed use of Debrox weekly for cerumen management. [email or web address] Not available 09/03/2024 15:23:09 02/17/2025 [id number] Prescribed Ciprodex for left Eustachian tube dysfunction. [...] Recorded Time Impacted cerumen in left ear 0895985884509 101 Active 2023 Yani Rhoades, DELIVERY STOCK CLERK [address] [facility], [address], [place], [address] [place] [address] 4 12:03:36 Sensorineur al hearing loss 05067049 Active 2024 Yani Henao RN null, [facility] 5 14:56:37 Asymmetrica l sensorineur al hearing loss 490912330 Active 2024 Yani Henao RN null, [facility] 5 14:57:48 Dysfunction of left eustachian tube 9994783516370 106 Active 2024 Ashley Parra [facility], [facility] 5 15:48:49 Problem Notes None recorded. Procedures Surgical History Date Name Laterality Status Provider Name and Address Organization Details Recorded Time tonsillectomy completed Yani leal RN [facility] 08/28/2024 11:37:02 Imaging Results None recorded. Procedure Notes None recorded. Medical Equipment None Reported. Allergies Allergen ID Allergen Name Allergen Category Reaction Reaction Severity Criticality Documentation Date Start Date Code Code System Note Provider Name and Address Organization Details Recorded Time 64371 Product containin g penicilli n (product) medicatio n Not available Not available Not available 08/28/2024 39766 8001 SNOMED Yani Henao RN null, [facility] 4 11:36:04 Medications Name Sig Start Date [...] Updated DateTime 02/17/2025 172.72 cm 23.1 kg/m2 00785.04 g 97.7 [degF] Yani Henao RN [facility] 02/17/2025 14:41:32 Date Recorded Body height Body mass index (BMI) Body weight Provider Name and Address Organization Details Last Updated DateTime 08/28/2024 172.72 cm 22.9 kg/m2 66474.29 g Yani Henao RN [facility] [employer] 08/28/2024 11:34:07 Date Recorded Body height Body mass index (BMI) Body weight Body temperature Provider Name and Address Organization Details Last Updated DateTime 09/03/2024 172.72 cm 22.8 kg/m2 28616.86 g 98 [degF] Yani Henao RN [place] [facility] 09/03/2024 14:41:28 Social History [...] Diagnosis SNOMED-CT Code Diagnosis ICD10 Code Diagnosis IMO Codes Diagnosis Note [id number] Price Miranda MD [facility] [place] [address] [place] [address] 08/28/2024 11:21:29 08/28/2024 12:05:10 Impacted cerumen in left ear 5630073997 844103 H61.22 several attempts made at removing cerumen to the left ear with lavage and a curette device. Patient notes that she still has Debrox at home and will use Debrox twice a day and returned to the office in one-week for cerumen removal. [id number] Price Miranda MD [facility] [place] [address] [place] [address] 09/03/2024 14:13:09 09/03/2024 15:24:52 Impacted cerumen in left ear 5399478039 944552 H61.22 After several attempts made of cerumen lavage and use of a curette device, Dr. Miranda assisted in successful removal of cerumen impaction of the left ear with irrigation , curette, and alligator forceps. [id number] Price Miranda MD [facility] [place] [address] [employer] [address] 02/17/2025 14:34:19 02/17/2025 15:20:04 Dysfunction of left eustachian tube 0631457474 722610 H69.92 Health Concerns Section Related Observation LastModified by Organization Detai ls LastModified Time None Recorded Concern Status LastModified by Organization Details LastModified Time None Recorded Advance Directives Directive None Recorded Payers Insurance Date Sequence Insurance Name Policy Number Policy Portillo Covered Member ID Portillo Member ID Guarantor Name 10/03/2024 1 [employer] [id number] Mariana Milton Kaykay [id number] Mariana Mccracken 02/17/2025 1 [employer] (MEDICARE REPLACEMENT/ ADVANTAGE - PPO) [id number] Mariana Mccracken [id number] Mariana Kaykay Notes Date Note Type Note Provider Name [...] is this coming Sunday. MICAELA Rivera [address] [facility], [facility] [address], [place], [address], [employer] 08/28/2024 12:04:25 09/03/2024 text/html This patient presents for a one-week follow-up for left ear cerumen impaction removal. She has been using Debrox as advised for cerumen softening. MICAELA Rivera [address], [address], [place], [address], [employer] 09/03/2024 15:23:13 02/17/2025 text/html This patient presents to the office for ear congestion that began 1.5 weeks ago . At the beginning of January she had flown to [place] and notes that her hears became clogged [...] difficulties with her left ear. Yani Rhoades, DELIVERY STOCK CLERK [address] [facility], [facility] [address], [place], [address], [facility] 02/17/2025 15:17:21 OBGyn Episode No OBEpisode recorded.
--- OUTSIDE RECORDS SUMMARY | 2025-08-04 16:25 | XMS_ITS | Encounter Summary ---
Author Organization [facility] Address [address] [place] [address] Phone Care Team Providers Care Typer Name Role Phone Josue Draper MD Primary Care Provider [phone] Genevieve Sanchez MD Unavailable [phone] Chi Valdivia DO Primary Care Provider [phone] Kristen You MD Primary Care Provider [phone] Geo Hernandez MD Primary Care Provider [phone] Pedro Pablo Akers MD Unavailable Cora Bell MD PhD Unavailable Benoit Blanton MD Unavailable Romel Louie MD Unavailable [phone] Sasha MAS MD PhD, Santi Archuleta Unavailable [...] on file 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 Gender Identity Female 05/14/2019 9:25 AM CDT [...] on filedocumented in this encounter Care Teams Typer Relationship Specialty Start Date End Date Josue Draper MD [address] [facility] 1 [place] [address] PCP - General Internal Medicine 10/06/19 06/14/22 Chi Valdivia DO [address] [place] [address] PCP - General Internal Medicine 06/15/22 12/26/22 Kristen You MD [address] [place] [address] PCP - General Internal Medicine 12/27/22 05/02/23 Geo Hernandez MD [address] [place] [address] PCP - General Family Practice 05/03/23 Genevieve Sanchez MD [address] [place] [address] Consulting Physician Endocrinology 07/12/20 Pedro Pablo Akers MD [address] [place] [address] Referring Physician Dermatology 05/03/23 Cora Bell MD PhD [address] [facility] [address] [place] [address] Medical Oncologist/Skiagrapher Medical Oncology 05/07/23 Benoit Blanton MD [address] [place] [address] Consulting Physician Medical Oncology 08/15/23 08/31/24 Romel Louie MD [address] [place] [address] Medical Oncologist/Skiagrapher Medical Oncology 08/15/23 Santi Baez III, MD PhD [address] [place] [address] Radiation Oncologist Radiation Oncology 01/08/24 documented as of this encounter
--- OUTSIDE RECORDS SUMMARY | 2025-08-04 16:25 | XMS_ITS | Encounter Summary ---
Author Organization [facility] Address [address] [place] [address] Phone Care Team Providers Care Manufacturing Accountant Name Role Phone Genevieve Sanchez MD Unavailable [phone] Chi Valdivia DO Primary Care Provider [phone] Kristen You MD Primary Care Provider [phone] Geo Hernandez MD Primary Care Provider [phone] Pedro Pablo Akers MD Unavailable Cora Bell MD PhD Unavailable [phone] Benoit Blanton MD Unavailable Romel Louie MD Unavailable [phone] Sasha MAS MD PhD, Santi Archuleta Unavailable [...] on file 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 [place] Gender Identity Female 05/14/2019 9:25 AM CDT [...] on filedocumented in this encounter Care Teams Manufacturing Accountant Relationship Specialty Start Date End Date Chi Valdivia DO [address] [place] [address] PCP - General Internal Medicine 06/15/22 12/26/22 Kristen You MD [address] [place] [address] PCP - General Internal Medicine 12/27/22 05/02/23 Geo Hernandez MD [address] [place] [address] PCP - General Family Practice 05/03/23 Genevieve Sanchez MD [address] [place] [address] Consulting Physician Endocrinology 07/12/20 Pedro Pablo Akers MD 930 [facility] [address] [address] Referring Physician Dermatology 05/03/23 Cora Bell MD PhD [address] [facility] [address] [place] [address] Medical Oncologist/Steam Gigger Medical Oncology 05/07/23 Benoit Blanton MD [address] [place] [address] Consulting Physician Medical Oncology 08/15/23 08/31/24 Romel Louie MD [address] [place] [address] Medical Oncologist/Steam Gigger Medical Oncology 08/15/23 Santi Baez III, MD PhD [address] [place] [address] Radiation Oncologist Radiation Oncology 01/08/24 documented as of this encounter
--- OUTSIDE RECORDS SUMMARY | 2025-08-04 16:25 | XMS_ITS | Clinical Summary ---
Author Organization [facility] Address [address] [place] [address] Care Team Providers Care Gas Cutter Name Role Phone Boston Aldrich MD Primary Care Provider [phone] Source Comments [facility],non-owned Affiliates and Associated Physician Practices is amultiple site organization consisting of ambulatory clinics and hospital sitesin [place], [place], [place] and [place]. This disclosure is being madepursuant to the Care Everywhere program and may not contain all information available regarding this patient. Last updated 18.[facility] Allergies Active Allergy Reactions Criticality Noted Date [...] yrs (1 - 1-dose 75+ series) 2021 DEPRESSION SCREENING 10/29/2024 COVID-19 VACCINE (1 - 2023-2 5 season) 2025 INFLUENZA VACCINE (#1) 2025 HEPATITIS B VACCINE Aged Out No [...] patient's age to complete this topic Insurance [facility] MANAGED MEDICARE ADV Care Teams Gas Cutter Relationship Specialty Start Date End Date Boston Aldrich MD [address] [place] [address] PCP - General Family Medicine 02/06/19
--- OUTSIDE RECORDS SUMMARY | 2025-08-04 16:25 | XMS_ITS ---
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 I have therefore recommended that she remain anticoagulated for thromboprophylaxis. Borderline high blood pressure 12/10/2019 08/09/2021
--- OUTSIDE RECORDS SUMMARY | 2025-08-04 16:25 | XMS_ITS | Encounter Summary ---
Author Organization [facility] Address [address] [place] [address] Phone Care Team Providers Care Shoe Stamper Name Role Phone Josue Draper MD Primary Care Provider [phone] Genevieve Sanchez MD Unavailable [phone] Chi Valdivia DO Primary Care Provider [phone] Kristen You MD Primary Care Provider [phone] Geo Hernandez MD Primary Care Provider [phone] Pedro Pablo Akers MD Unavailable Cora Bell MD PhD Unavailable [phone] Benoit Blanton MD Unavailable Romel Louie MD Unavailable [phone] Sasha MAS MD PhD, Santi Archuleta Unavailable [...] on file 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 Gender Identity Female 05/14/2019 9:25 AM [...] on filedocumented in this encounter Care Teams Shoe Stamper Relationship Specialty Start Date End Date Josue Draper MD [address] [place], [place] [address] PCP - General Internal Medicine 10/06/19 06/14/22 Chi Valdivia DO [address] [place] [address] PCP - General Internal Medicine 06/15/22 12/26/22 Kristen You MD [address] [place] [address] PCP - General Internal Medicine 12/27/22 05/02/23 Geo Hernandez MD [address] [place] [address] PCP - General Family Practice 05/03/23 Genevieve Sanchez MD [address] [place] [address] Consulting Physician Endocrinology 07/12/20 Pedro Pablo Akers MD [address] [place] [address] Referring Physician Dermatology 05/03/23 Cora Bell MD PhD [address] [facility] [address] [place] [address] Medical Oncologist/Bronze Plater Medical Oncology 05/07/23 Benoit Blanton MD [address] [place] [address] Consulting Physician Medical Oncology 08/15/23 08/31/24 Romel Louie MD [address] [place] [address] Medical Oncologist/Bronze Plater Medical Oncology 08/15/23 Santi Baez III, MD PhD [address] [place] [address] Radiation Oncologist Radiation Oncology 01/08/24 documented as of this encounter
--- OUTSIDE RECORDS SUMMARY | 2025-08-04 16:25 | XMS_ITS | Encounter Summary ---
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 [address] [place] [address] Medical Oncologist/Transit Coach Operator Medical Oncology 05/07/23 Fa'Benoit beltran MD [address] [place] [address] Consulting Physician Medical Oncology 08/15/23 08/31/24 Romel Louie MD [address] [place] [address] Medical Oncologist/Transit Coach Operator Medical Oncology 08/15/23 Santi Baez III, MD PhD [address] [place] [address] Radiation Oncologist Radiation Oncology 01/08/24 documented as of this encounter
== END 2025-08-04 15:36 | disposition home or self-care (01) ==
LOC: ANHFOHIMG 15:38
PROVIDERS: PCP Family Medicine
DX: Z12.31 Encounter for screening mammogram for malignant neoplasm of breast (principal)
CPT/HCPCS: 77063; 77067